=== PATIENT | female | born 1950 | race African-American/Black ===

== ENCOUNTER 2018-01-01 22:22 | Inpatient (IN) | payer MEDICARE, OTHER ==
[~2018-01-01] VITALS: Ht 172.7 cm; Wt 196.0 kg
[2018-01-01 22:55] LABS: BASO # 0.1 x10^3/uL (0.0-0.2); BASO % 1 % (0-3); EOS # 0.3 x10^3/uL (0.0-0.7); EOS % 2 % (0-3); HEMATOCRIT 38.7 % (36.0-47.0); HEMOGLOBIN 12.3 g/dL (12.0-15.5); LYMPH # 3.8 x10^3/uL (1.0-4.8); LYMPH % 26 % (24-48); MEAN CORPUSCULAR HEMOGLOBIN 29 pg (25-35); MEAN CORPUSCULAR HGB CONC 32 g/dL (31-37); MEAN CORPUSCULAR VOLUME 91 fL (79-100); MONO # 1.2 x10^3/uL (0.0-1.1); MONO % 8 % (0-9); NEUT # 9.5 x10^3uL (1.8-7.7); NEUT % 64 % (31-73); PLATELET COUNT 297 x10^3/uL (140-400); RED BLOOD COUNT 4.26 x10^6/uL (3.50-5.40); RED CELL DISTRIBUTION WIDTH 17.3 % (11.5-14.5); WHITE BLOOD COUNT 14.9 x10^3/uL (4.0-11.0)
[2018-01-01] MEDS ORDERED: fentaNYL PF VIAL 100 MCG/2 ML VIAL IV PRN ×2 (23:00)
[2018-01-01 23:03] LABS: PROTHROMBIN TIME PATIENT 13.3 SEC (11.7-14.0)
[2018-01-01 23:07] LABS: CALCIUM 8.7 mg/dL (8.5-10.1); CREATININE 1.7 mg/dL (0.6-1.0); GFR 36.4; POTASSIUM 3.7 mmol/L (3.5-5.1)
[2018-01-01] MEDS ORDERED: PROPOFOL 50 ML IV ONE ×2 (23:16→23:50)
[2018-01-01 23:20] LABS: ALBUMIN 2.7 g/dL (3.4-5.0); ALBUMIN/GLOBULIN RATIO 0.5 (1.0-1.7); MAGNESIUM 1.9 mg/dL (1.8-2.4); TOTAL BILIRUBIN 0.4 mg/dL (0.2-1.0); TOTAL PROTEIN 8.2 g/dL (6.4-8.2)
[2018-01-01] MEDS: PROPOFOL 100 ML IV PRN (23:20)
[2018-01-01] MEDS ORDERED: AZTREONAM 2 GM in IV DEXTROSE 5% 100ML 100 ML IV ONE (23:30)
[2018-01-01] MEDS ORDERED: LIDOCAINE 1%/EPI 1:100,000 20 ML VIAL. ONE (23:40)
[2018-01-01 23:43] LABS: BILIRUBIN,URINE NEGATIVE (NEG); CLARITY,URINE CLEAR; COLOR,URINE YELLOW; NITRITE,URINE NEGATIVE (NEG); PH,URINE 6.5; PROTEIN,URINE >=300 mg/dL (NEG-TRACE)
[2018-01-01 23:48] LABS: BACTERIA,URINE MANY /HPF (0-FEW); SQUAMOUS EPITHELIAL CELL,UR FEW /LPF
[2018-01-02] VITALS (26 sets, daily range): BP systolic 126–176; BP diastolic 63–106
[2018-01-02 00:17] LABS: BASE EXCESS COOX -1 mmol/L (-3-3); HCO3 COOX 27 mmol/L (21-28); METHEMOGLOBIN 0.3 % (0.0-1.9); OXYHEMOGLOBIN 84.9 %; PCO2 COOX 57 mmHg (35-46); PO2 COOX 57 mmHg (65-108); SAT O2 COOX 86 % (92-99)
[2018-01-02] MEDS ORDERED: IV NORMAL SALINE 1000ML BAG 1,000 ML IV ONE ×2 (01:00)
--- NOTE | 2018-01-02 01:16 | EKG ---
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
--- NOTE | 2018-01-02 01:17 | PHYS DOC ---
Past Medical History Past Medical History: CHF, COPD, Diabetes-Type II, Hypertension Past Medical History Unable to obtain due to patient's medical condition Past Surgical History: Other Additional Past Surgical Histo: UNKNOWN Past Surgical History Unable to obtain due to patient's medical condition Social History Unable to obtain due to patient's medical condition Adult General Chief Complaint Chief Complaint: DYSPNEA/RESPIRATOY DISTRESS HPI HPI 67-year-old female presents via EMS in respiratory distress. Family reports patient has had increased respiratory difficulties over the last couple days and now was with decreased mentation. Patient apparently decided to stop taking her medication. Patient noted by EMS to have pulse oximetry down to the "60's" on room air. Patient does use CPAP at night but does not require supplemental O2 at baseline. Patient does have past medical history of both COPD and congestive heart failure. History of present illness limited due to patient's respiratory compromise. Review of Systems Review of Systems Respiratory: Reports shortness of breath [] GI: Denies vomiting Neurology: Reports decreased responsiveness Unable to obtain due to patient's medical condition Current Medications Current Medications Current Medications Medications (Trade) Dose Ordered Sig/Lulú Start Time Stop Time Status Last Admin Dose Admin Aztreonam 2 gm/ Dextrose 100 ml @ 200 mls/hr 1X ONCE 01/01/18 23:30 01/01/18 23:59 DC 01/02/18 00:23 200 MLS/HR Fentanyl Citrate (Fentanyl 2ml Vial) 50 mcg PRN Q1HR PRN 01/01/18 23:00 01/01/18 23:57 50 MCG Levofloxacin/ Dextrose 100 ml @ 100 mls/hr 1X ONCE 01/01/18 23:30 01/02/18 00:29 DC 01/01/18 23:56 100 MLS/HR Lidocaine/ Epinephrine (LIDOCAINE 1%-EPI 1:100,000 Multi-Dose) 20 ml STK-MED ONCE 01/01/18 23:40 01/01/18 23:41 DC Propofol 50 ml @ As Directed STK-MED ONCE 01/01/18 23:50 01/01/18 23:51 DC Sodium Chloride 1,000 ml @ 1,000 mls/hr 1X ONCE 01/02/18 01:00 01/02/18 01:59 DC 01/02/18 01:12 1,000 MLS/HR Allergies Allergies Allergies Coded Allergies Type Severity Reaction Last Updated Verified Penicillins Allergy Intermediate 01/01/18 Yes Physical Exam Physical Exam Constitutional: Morbidly obese -[place] women in severe respiratory distress HENT: Normocephalic, atraumatic, oropharynx moist Eyes: PERRL, EOMI, conjunctiva normal, no discharge. [] Neck: Normal range of motion, supple] Cardiovascular: Tachycardic heart rate, Lungs & Thorax: Diminished breath sound bilaterally due to patient's body habitus, Increased work of breathing Abdomen: Obese pannus, soft, no tenderness, no masses, no pulsatile masses. [] Skin: Warm, dry, no erythema, no rash. [] Extremities: Trace BLE edema, CR < 2 sec Neurologic: Awake and able to answer "yes/no" to questioning Current Patient Data Vital Signs Vital Signs Date Time Temp Pulse Resp B/P (MAP) Pulse Ox O2 Delivery O2 Flow Rate FiO2 01/02/18 01:09 66 26 122/80 (94) 97 Ventilator 01/01/18 22:25 97.9 4.0 97.9 Lab Values Laboratory Tests Test 01/01/18 22:25 01/01/18 22:40 01/01/18 23:00 White Blood Count 14.9 x10^3/uL (4.0-11.0) H Red Blood Count 4.26 x10^6/uL (3.50-5.40) Hemoglobin 12.3 g/dL (12.0-15.5) Hematocrit 38.7 % (36.0-47.0) Mean Corpuscular Volume 91 fL (79-100) Mean Corpuscular Hemoglobin 29 pg (25-35) Mean Corpuscular Hemoglobin Concent 32 g/dL (31-37) Red Cell Distribution Width 17.3 % (11.5-14.5) H Platelet Count 297 x10^3/uL (140-400) Neutrophils (%) (Auto) 64 % (31-73) Lymphocytes (%) (Auto) 26 % (24-48) Monocytes (%) (Auto) 8 % (0-9) Eosinophils (%) (Auto) 2 % (0-3) Basophils (%) (Auto) 1 % (0-3) Neutrophils # (Auto) 9.5 x10^3uL (1.8-7.7) H Lymphocytes # (Auto) 3.8 x10^3/uL (1.0-4.8) Monocytes # (Auto) 1.2 x10^3/uL (0.0-1.1) H Eosinophils # (Auto) 0.3 x10^3/uL (0.0-0.7) Basophils # (Auto) 0.1 x10^3/uL (0.0-0.2) Prothrombin Time 13.3 SEC (11.7-14.0) Prothrombin Time INR 1.1 (0.8-1.1) PTT 31 SEC (24-38) Sodium Level 139 mmol/L (136-145) Potassium Level 3.7 mmol/L (3.5-5.1) Chloride Level 101 mmol/L (98-107) Carbon Dioxide Level 28 mmol/L (21-32) Anion Gap 10 (6-14) Blood Urea Nitrogen 13 mg/dL (7-20) Creatinine 1.7 mg/dL (0.6-1.0) H Estimated GFR (Cockcroft-Gault) 36.4 BUN/Creatinine Ratio 8 (6-20) Glucose Level 331 mg/dL (70-99) H Lactic Acid Level 3.5 mmol/L (0.4-2.0) H Calcium Level 8.7 mg/dL (8.5-10.1) Magnesium Level 1.9 mg/dL (1.8-2.4) Total Bilirubin 0.4 mg/dL (0.2-1.0) Aspartate Amino Transferase (AST) 18 U/L (15-37) Alanine Aminotransferase (ALT) 22 U/L (14-59) Alkaline Phosphatase 137 U/L (46-116) H Creatine Kinase 183 U/L (26-192) Troponin I Quantitative < 0.017 ng/mL (0.000-0.055) NP-Smh-M-Type Natriuretic Peptide 1542 pg/mL (0-124) H Total Protein 8.2 g/dL (6.4-8.2) Albumin 2.7 g/dL (3.4-5.0) L Albumin/Globulin Ratio 0.5 (1.0-1.7) L Lipase 87 U/L (73-393) O2 Saturation 86 % (92-99) L Arterial Blood pH 7.29 (7.35-7.45) L Arterial Blood pCO2 at Patient Temp 57 mmHg (35-46) H Arterial Blood pO2 at Patient Temp 57 mmHg (65-108) L Arterial Blood HCO3 27 mmol/L (21-28) Arterial Blood Base Excess -1 mmol/L (-3-3) Oxyhemoglobin 84.9 % Methemoglobin 0.3 % (0.0-1.9) Carbon Monoxide, Quantitative 0.6 % (0.0-1.9) FiO2 100 Urine Collection Type Unknown Urine Color Yellow Urine Clarity Clear Urine pH 6.5 Urine Specific [place] 1.020 Urine Protein >=300 mg/dL (NEG-TRACE) Urine Glucose (UA) 500 mg/dL (NEG) Urine Ketones (Stick) Negative mg/dL (NEG) Urine Blood Small (NEG) Urine Nitrite Negative (NEG) Urine Bilirubin Negative (NEG) Urine Urobilinogen Dipstick 1.0 mg/dL (0.2 mg/dL) Urine Leukocyte Esterase Negative (NEG) Urine RBC 1-2 /HPF (0-2) Urine WBC 11-20 /HPF (0-4) Urine Squamous Epithelial Cells Few /LPF Urine Bacteria Many /HPF (0-FEW) Urine Mucus Slight /LPF Laboratory Tests 01/01/18 22:25 Laboratory Tests 01/01/18 22:25 EKG EKG @2301 NSR at 82bpm, No ST elevation, nonspecific t wave inversion I and avL Radiology/Procedures Radiology/Procedures AP CXR: (Preliminary interpretation by ED physician): Status post intubation. ET tube in mid trachea in good position. Near complete opacification of right lung concerning for infectious etiology. AP CXR: (Preliminary interpretation by ED physician): Status post central line placement. In good position. NO pneumothorax noted. Continued opacification of right lung Course & Med Decision Making Course & Med Decision Making Pertinent Labs and Imaging studies reviewed. (See chart for details) Patient presents in severe respiratory distress with report of sats down to the 60s. Patient noted to be in mid 70s on BiPAP via EMS. Patient with increased work of breathing although able to answer yes to questioning. Patient agreeable for emergent intubation. Etomidate and rocuronium provided and intubation achieved. Chest x-ray obtained with near opacification of right lung. Labs obtained and posted to chart. Initial troponin WNL. EKG stable. Patient noted to meet SIRS criteria based on elevated respiratory rate as well as elevated WBC. Lactic acid elevated. Patient also with respiratory failure. Patient mets criteria for septic shock. Empiric antibiotics given. IVF bolusing provided for ideal weight. UA without signs of infection. SCVO2 placed to RIJ without complication or difficulty. Repeat CXR confirmed good placement. Patient requiring admission for further evaluation and treatment. Discussed with Dr. Parmar (hospitalist) who is in agreement with ICU admission. Discussed findings and plan with family, who acknowledge understanding and agreement. Dragon Disclaimer Dragon Disclaimer This electronic medical record was generated, in whole or in part, using a voice recognition dictation system. Departure Departure Impression: Primary Impression: Septic shock Additional Impressions: Respiratory failure Hypoxia UTI (urinary tract infection) Hyperglycemia Renal insufficiency Disposition: ADMITTED INPATIENT Admitting Physician: Eli Parmar Condition: CRITICAL Referrals: ADRIAN SANDY DO (PCP) Central Line Central Line : Central Line Lumen: triple (SCVO2) Central Line Procedure: sterile drapes applied, sterile dressing applied Central Line Postion: internal jugular (R) Anesthesia: Lidocaine cc's of anesthesia: 3 Complications: none Central Line Post Position: sutured, good blood return, position confirmed w / CXR Progress Time out performed. Bedside ultrasound utilized. Chlorprep solution utilized. Written consent obtained from spouse. Intubation Intubation : Intubation Method: orotracheal Tube Size (cm): 8.0 (cuffed) Breath Sounds after Intubation: equal Intubation Complications: no complications Post Intubation Xray: Yes Progress/Xray Impression: ETT mid trachea in good position Progress RSI under 50mg of Rocuronium and 20mg of Etomidate. Utilized Harris blade to place 8.0 cuffed ETT under direct laryngoscopy under emergent consent Critical Care Time Critical care time was 30-74 minutes which includes time at bedside, spent in discussion of patient's care with specialists and/or family members, with interpretation of laboratory and/or radiological studies and is exclusive of procedures. Problem Qualifiers Additional Impressions: Respiratory failure Chronicity: acute Respiratory failure complication: hypoxia Qualified Codes : J96.01 - Acute respiratory failure with hypoxia UTI (urinary tract infection) Urinary tract infection type: acute cystitis Hematuria presence: without hematuria Qualified Codes: N30.00 - Acute cystitis without hematuria WESLY RIVAS DO Jan 02, 2018 01:17
[2018-01-02] MEDS ORDERED: ONDANSETRON PF 4 MG/2 ML VIAL. IV PRN (01:30)
[2018-01-02] MEDS ORDERED: DEXTROSE 50% 25 GM / 50ML DISP.SYRIN. IV PRN (01:30)
[2018-01-02] MEDS ORDERED: VANCOMYCIN 2 GM in IV NORMAL SALINE 500ML BAG 500 ML IV ONE (01:30)
[2018-01-02] MEDS: PROPOFOL 100 ML IV PRN ×12 (01:37→23:08)
[2018-01-02] MEDS ORDERED: FLUO40CA2 PO (03:08)
[2018-01-02] MEDS ORDERED: ISOS1TAB2 PO (03:08)
[2018-01-02] MEDS ORDERED: PANT40GR PO (03:08)
[2018-01-02] MEDS ORDERED: CARV25TA2 PO (03:08)
[2018-01-02] MEDS ORDERED: INSU100V8 SQ (03:08)
[2018-01-02] MEDS ORDERED: SACU1TAB7 PO (03:08)
[2018-01-02] MEDS ORDERED: FURO80TA3 PO (03:08)
[2018-01-02] MEDS ORDERED: POTA20TA82 PO (03:08)
[2018-01-02] MEDS ORDERED: AMLO5TAB7 PO (03:08)
[2018-01-02] MEDS ORDERED: INSU100I17 SQ (03:08)
[2018-01-02] MEDS ORDERED: ATOR40TA59 PO (03:08)
[2018-01-02] MEDS ORDERED: NITR0.4T22 SL (03:08)
[2018-01-02] MEDS ORDERED: CLOP75TA PO (03:08)
[2018-01-02] MEDS: ANTI-COAG MONITOR BY PHARMACY. MC PRN ×2 (05:45→16:31)
[2018-01-02] MEDS ORDERED: HEPARIN for IV BOLUS 10,000 UNIT/10 ML VIAL. IV PRN (05:45)
[2018-01-02] MEDS ORDERED: ROCURONIUM 50 MG/5 ML VIAL. IV ONE (06:00)
[2018-01-02] MEDS ORDERED: ETOMIDATE 20 MG/10 ML VIAL. IV ONE (06:00)
[2018-01-02] MEDS ORDERED: INSULIN LISPRO 300 UNITS/3 ML INSULN.PEN. SQ SCH (08:00)
--- NOTE | 2018-01-02 08:00 | RAD ---
PORTABLE CHEST 1V 1:17 AM Clinical indications: LINE PLACEMENT COMPARISON: January 01, 2018. Impression: Right IJ central line has been placed and the tip is seen within the upper superior vena cava. No pneumothorax is seen. ET tube and NG tube remain in place. Tip of the NG tube cannot be seen in this study. Again seen are bilateral lung infiltrates, stable on the right and worsening consolidation of the left lung base. Small bilateral pleural effusions are again evident and are stable. The heart size and mediastinum are stable.. Electronically signed by: Sergei Gómez MD (01/02/2018 7:57 AM) [facility]
--- NOTE | 2018-01-02 08:43 | RAD ---
EXAM: Chest, single view. HISTORY: Intubation. COMPARISON: None. FINDINGS: A frontal view of the chest is obtained. There is an endotracheal tube within the mid trachea with the tip approximately 5.6 cm proximal to the bret. There is a nasogastric tube within the stomach. There is diffuse mixed interstitial and alveolar infiltrate throughout the right lung. There is diffuse interstitial infiltrate throughout the left lung. There are suspected small pleural effusions. There is cardiomegaly. There is no pneumothorax. IMPRESSION: 1. Endotracheal tube and nasogastric tube in expected position. 2. Diffuse mixed interstitial and alveolar infiltrate throughout the right lung and interstitial infiltrate throughout the left lung. Follow-up to confirm resolution and exclude underlying neoplasm. 3. Small pleural effusions and cardiomegaly. Electronically signed by: Kaylie Gonzalez MD (01/02/2018 8:39 AM) [facility]
[2018-01-02] MEDS: ENALAPRILAT 2.5 MG/2 ML VIAL. IVP PRN ×2 (08:58→18:10)
[2018-01-02] MEDS: CHLORHEXIDINE 0.12% 15 ML MOUTHWASH. MM SCH ×2 (09:03→21:12)
[2018-01-02 09:32] LABS: BASE EXCESS ABG 1 mmol/L (-3-3); HCO3 ABG 23 mmol/L (21-28); PCO2 ABG 30 mmHg (35-46); PO2 ABG 163 mmHg (65-108); SAT O2 ABG 99 % (92-99)
[2018-01-02 10:00] LABS: FIO2 ABG 100
--- NOTE | 2018-01-02 10:16 | PDOC2 ---
JOSE RAMON JACKSON [employer] 01/02/18 1016: CARDIAC CONSULT DATE OF CONSULT Date of Consult DATE: 01/02/18 TIME: 10:15 REASON FOR CONSULT Reason for Consult: elevated troponin REFERRING PHYSICIAN Referring Physician: Ghulam SOURCE Source: Chart review HISTORY OF PRESENT ILLNESS HISTORY OF PRESENT ILLNESS 67 year old female admitted through ER with acute respiratory failure and intubated. EMS reported O2 sats in the 60s. Patient reportedly stopped taking medications. Hypertensive POA with CR of 1.7; NT-proBNP of 1542; lactate level of 3.5 and now decreased. Initial troponin level was 0.017 then increase to 4.9 and then 7.9. EKG without acute changes. Patient sedated and no family present. Reason for Visit: NSTEMI PAST MEDICAL HISTORY Cardiovascular: CHF, HTN Pulmonary: COPD Endocrine: Diabetes PAST SURGICAL HISTORY Past Surgical History: Other (unknown) FAMILY HISTORY Family History: Family History Unknown SOCIAL HISTORY Social History unknown CURRENT MEDICATIONS CURRENT MEDICATIONS Current Medications Medications (Trade) Dose Ordered Sig/Lulú Route PRN Reason Start Time Stop Time Status Last Admin Dose Admin Propofol 100 ml @ 0 mls/hr CONT PRN IV PER PROTOCOL 01/01/18 23:00 01/02/18 08:59 Fentanyl Citrate (Fentanyl 2ml Vial) 50 mcg PRN Q1HR PRN IV MOD TO SEVERE PAIN 01/01/18 23:00 01/01/18 23:57 Chlorhexidine Gluconate (Peridex) 15 ml BID MM 01/02/18 09:00 01/02/18 09:03 Aztreonam 2 gm/ Dextrose 100 ml @ 200 mls/hr 1X ONCE IV 01/01/18 23:30 01/01/18 23:59 DC 01/02/18 00:23 Vancomycin HCl 2 gm/Sodium Chloride 500 ml @ 250 mls/hr 1X ONCE IV 01/02/18 01:30 01/02/18 03:29 DC 01/02/18 01:13 Levofloxacin/ Dextrose 100 ml @ 100 mls/hr 1X ONCE IV 01/01/18 23:30 01/02/18 00:29 DC 01/01/18 23:56 Sodium Chloride 1,000 ml @ 1,000 mls/hr 1X ONCE IV 01/02/18 01:00 01/02/18 01:59 DC 01/02/18 00:00 Sodium Chloride 1,000 ml @ 1,000 mls/hr 1X ONCE IV 01/02/18 01:00 01/02/18 01:59 DC 01/02/18 01:12 Info (Anti-Coagulation Monitoring By Pharmacy) 1 each PRN DAILY PRN MC SEE COMMENTS 01/02/18 05:45 01/02/18 05:45 Etomidate (Amidate) 20 mg 1X ONCE IV 01/02/18 06:00 01/02/18 06:01 DC 01/01/18 22:31 Rocuronium Garretson (Zemuron) 50 mg 1X ONCE IV 01/02/18 06:00 01/02/18 06:01 DC 01/01/18 22:31 Enalaprilat (Vasotec Inj) 2.5 mg PRN Q6HRS PRN IVP HYPERTENSION, SEE COMMENTS 01/02/18 09:00 01/02/18 08:58 ALLERGIES ALLERGIES: Coded Allergies: Penicillins (Verified Allergy, Intermediate, 01/01/18) ROS Review of System unable to obtain as intubated and sedated PHYSICAL EXAM General: Other (sedated) HEENT: Atraumatic Lungs: Other (coarse) Heart: Other (heart tones distant and difficult to auscultate) Abdomen: Other (obese abdomen) Extremities: No edema Skin: No rashes Neuro: Other (sedated) Psych/Mental Status: Other (sedated) MUSCULOSKELETAL: No deformity VITALS VITALS Vital Signs Date Time Temp Pulse Resp B/P (MAP) Pulse Ox O2 Delivery O2 Flow Rate FiO2 01/02/18 10:00 68 26 153/84 (107) 100 Ventilator 01/02/18 08:00 98.0 98.0 01/01/18 22:25 4.0 LABS Lab: Laboratory Tests Test 01/01/18 22:25 01/01/18 22:40 01/01/18 23:00 01/02/18 03:15 White Blood Count 14.9 x10^3/uL (4.0-11.0) Red Blood Count 4.26 x10^6/uL (3.50-5.40) Hemoglobin 12.3 g/dL (12.0-15.5) Hematocrit 38.7 % (36.0-47.0) Mean Corpuscular Volume 91 fL (79-100) Mean Corpuscular Hemoglobin 29 pg (25-35) Mean Corpuscular Hemoglobin Concent 32 g/dL (31-37) Red Cell Distribution Width 17.3 % (11.5-14.5) Platelet Count 297 x10^3/uL (140-400) Neutrophils (%) (Auto) 64 % (31-73) Lymphocytes (%) (Auto) 26 % (24-48) Monocytes (%) (Auto) 8 % (0-9) Eosinophils (%) (Auto) 2 % (0-3) Basophils (%) (Auto) 1 % (0-3) Neutrophils # (Auto) 9.5 x10^3uL (1.8-7.7) Lymphocytes # (Auto) 3.8 x10^3/uL (1.0-4.8) Monocytes # (Auto) 1.2 x10^3/uL (0.0-1.1) Eosinophils # (Auto) 0.3 x10^3/uL (0.0-0.7) Basophils # (Auto) 0.1 x10^3/uL (0.0-0.2) Prothrombin Time 13.3 SEC (11.7-14.0) Prothromb Time International Ratio 1.1 (0.8-1.1) Activated Partial Thromboplast Time 31 SEC (24-38) Sodium Level 139 mmol/L (136-145) Potassium Level 3.7 mmol/L (3.5-5.1) Chloride Level 101 mmol/L (98-107) Carbon Dioxide Level 28 mmol/L (21-32) Anion Gap 10 (6-14) Blood Urea Nitrogen 13 mg/dL (7-20) Creatinine 1.7 mg/dL (0.6-1.0) Estimated GFR (Cockcroft-Gault) 36.4 BUN/Creatinine Ratio 8 (6-20) Glucose Level 331 mg/dL (70-99) Lactic Acid Level 3.5 mmol/L (0.4-2.0) 1.9 mmol/L (0.4-2.0) Calcium Level 8.7 mg/dL (8.5-10.1) Magnesium Level 1.9 mg/dL (1.8-2.4) Total Bilirubin 0.4 mg/dL (0.2-1.0) Aspartate Amino Transf (AST/SGOT) 18 U/L (15-37) Alanine Aminotransferase (ALT/SGPT) 22 U/L (14-59) Alkaline Phosphatase 137 U/L (46-116) Creatine Kinase 183 U/L (26-192) Troponin I Quantitative < 0.017 ng/mL (0.000-0.055) DX-Luy-C-Type Natriuretic Peptide 1542 pg/mL (0-124) Total Protein 8.2 g/dL (6.4-8.2) Albumin 2.7 g/dL (3.4-5.0) Albumin/Globulin Ratio 0.5 (1.0-1.7) Lipase 87 U/L (73-393) O2 Saturation 86 % (92-99) Arterial Blood pH 7.29 (7.35-7.45) Arterial Blood pCO2 at Patient Temp 57 mmHg (35-46) Arterial Blood pO2 at Patient Temp 57 mmHg (65-108) Arterial Blood HCO3 27 mmol/L (21-28) Arterial Blood Base Excess -1 mmol/L (-3-3) Oxyhemoglobin 84.9 % Methemoglobin 0.3 % (0.0-1.9) Carbon Monoxide, Quantitative 0.6 % (0.0-1.9) FiO2 100 Urine Collection Type Unknown Urine Color Yellow Urine Clarity Clear Urine pH 6.5 Urine Specific [place] 1.020 Urine Protein >=300 mg/dL (NEG-TRACE) Urine Glucose (UA) 500 mg/dL (NEG) Urine Ketones (Stick) Negative mg/dL (NEG) Urine Blood Small (NEG) Urine Nitrite Negative (NEG) Urine Bilirubin Negative (NEG) Urine Urobilinogen Dipstick 1.0 mg/dL (0.2 mg/dL) Urine Leukocyte Esterase Negative (NEG) Urine RBC 1-2 /HPF (0-2) Urine WBC 11-20 /HPF (0-4) Urine Squamous Epithelial Cells Few /LPF Urine Bacteria Many /HPF (0-FEW) Urine Mucus Slight /LPF Test 01/02/18 03:38 01/02/18 04:40 01/02/18 07:35 01/02/18 08:03 Glucose (Fingerstick) 191 mg/dL (70-99) 165 mg/dL (70-99) Troponin I Quantitative 4.975 ng/mL (0.000-0.055) 7.937 ng/mL (0.000-0.055) Test 01/02/18 09:25 O2 Saturation 99 % (92-99) Arterial Blood pH 7.50 (7.35-7.45) Arterial Blood pCO2 at Patient Temp 30 mmHg (35-46) Arterial Blood pO2 at Patient Temp 163 mmHg (65-108) Arterial Blood HCO3 23 mmol/L (21-28) Arterial Blood Base Excess 1 mmol/L (-3-3) FiO2 100 IMAGES IMAGES CXR: Impression: Right IJ central line has been placed and the tip is seen within the upper superior vena cava. No pneumothorax is seen. ET tube and NG tube remain in place. Tip of the NG tube cannot be seen in this study. Again seen are bilateral lung infiltrates, stable on the right and worsening consolidation of the left lung base. Small bilateral pleural effusions are again evident and are stable. The heart size and mediastinum are stable.. EKG EKG no acute changes ECHOCARDIOGRAM ECHOCARDIOGRAM pending ASSESSMENT/PLAN ASSESSMENT/PLAN 1. ? sepsis --defer to primary service 2. NSTEMI --? demand mediated in setting of acute resp failure --continue heparin gtt; continue IV BB and ACEI --echo to evaluate LVEF --consider further ischemic evaluation when stabilizes 3. acute CHF --concur with diuretics --control BP --obtain records from primary cardiology if can be determined 4. DM, II --per primary service 5. morbid obesity, BMI > 68 JIMY PARKER MD 01/02/18 1555: CARDIAC CONSULT ASSESSMENT/PLAN ASSESSMENT/PLAN Patient seen and examined. Agree with SKIVER BOX TOE's assessment and plan. 2-D echo showed LVEF 30%. Plan further ischemic evaluation for non-STEMI and cardiomyopathy once respiratory status improves Continue vent management per pulmonary team Continue heparin infusion per protocol Continue current workup and treatment for sepsis Thank you for your consultation JOSE RAMON JACKSON APRN Jan 02, 2018 10:16 JIMY PARKER MD Jan 02, 2018 15:55
[2018-01-02] MEDS ORDERED: METOPROLOL TARTRATE 5 MG/5 ML VIAL. IVP PRN (10:30)
[2018-01-02] MEDS: METOPROLOL TARTRATE 5 MG/5 ML VIAL. IVP SCH ×2 (11:19→17:05)
[2018-01-02] MEDS: INSULIN LISPRO 300 UNITS/3 ML INSULN.PEN. SQ SCH ×3 (11:20→20:36)
[2018-01-02] MEDS ORDERED: FUROSEMIDE 100 MG/10 ML VIAL. IVP ONE (11:30)
--- NOTE | 2018-01-02 11:38 | CONS ---
DATE OF CONSULTATION: 01/02/2018 PULMONARY CONSULTATION ATTENDING PHYSICIAN: Dr. Parmar. REASON FOR CONSULTATION: Respiratory failure. HISTORY OF PRESENT ILLNESS: The patient is a 67-year-old morbidly obese patient with a BMI of 68.6. She has also chewed tobacco most of her life. She presented to the hospital, brought in by EMS, in respiratory distress. This was started last couple of days and progressed. The patient had a mild cough. Family does not think there was any colored sputum production. She requested a family member for aspirin and it is possible she may be having some chest pain. The patient uses CPAP at night time and does use oxygen 4 liters on a 24-hour basis. In the ER, she was in respiratory distress. As a result, she was intubated by the ER staff. Post-intubation, immediate blood gases revealed a pH of 7.29, pCO2 of 57 and pO2 of 57 on 100% FiO2. The patient's chest x-ray was reviewed and it shows diffuse lung infiltrates, more on the right than on the left, suggesting pulmonary edema. There was marked cardiomegaly. Subsequently, the chest x-ray today shows mild improvement in the right-sided infiltrates. The patient's arterial blood gases have shown improvement as well and the pO2 is now in the 160s. Talking to the family, they said she had no nausea, vomiting or no diarrhea before hospitalization. She has been ambulatory. She uses CPAP, with good compliance. PAST MEDICAL HISTORY: Significant for congestive heart failure, history of COPD, unknown FEV1; history of morbid obesity, type 2 diabetes and hypertension. PAST SURGICAL HISTORY: No recent surgeries. ALLERGIES: PENICILLIN. MEDICATIONS: Reviewed as listed in the MRAD. REVIEW OF SYSTEMS: System review unable to be obtained from the patient. SOCIAL HISTORY: Chewed tobacco most of her life. PHYSICAL EXAMINATION: GENERAL: She is intubated and sedated. VITAL SIGNS: Blood pressure 153/84, pulse is in the 60s. Afebrile, pulse ox is 100%. HEENT: Sclerae nonicteric. NECK: Supple. LUNGS: Diminished breath sounds, with a few rhonchi. CARDIOVASCULAR EXAMINATION: Regular rate and rhythm. ABDOMEN: Markedly obese. EXTREMITIES: With trace pitting edema. LABORATORY DATA: Labs were reviewed. ABGs are discussed in my history of present illness. BUN 13, creatinine 1.7. Her troponin level has increased to 7.93. White cell count 14.9, hemoglobin 12.3 and platelets are 297,000. IMPRESSION: 1. Gelxe-fy-xisksti hypoxic and hypercapnic respiratory failure secondary to non-ST segment myocardial infarction and acute congestive heart failure. Underlying chronic obstructive pulmonary disease may have contributed to the symptoms. 2. Clinically less likely pneumonia, but cannot be completely ruled out due to asymmetric infiltrates. 3. Abnormal chest x-ray with bilateral infiltrates, more on the right than on the left, likely related to pulmonary edema. She has a large cardiac silhouette as well. Cannot exclue underlying Pneumonia. 4. Suspected underlying chronic obstructive pulmonary disease. 5. Underlying obstructive sleep apnea with suspected obesity hypoventilation syndrome. 6. Acute kidney injury. 7. Moderate protein-calorie malnutrition, with an albumin level of 2.7. 8. Increasing troponin/ NSTMI RECOMMENDATIONS: 1. Continue with present vent support and make necessary adjustments based on ABGs. 2. Diuresis. 3. Add empiric antibiotic. 4. Follow Cardiology recommendation regarding the need for cardiac catheterization. 5. Obtain echocardiogram. 6. Follow chest x-rays. 7. Continue heparin per Cardiology recommendation. 8. PPI for stress ulcer prophylaxis. 9. Discussed with the patient's family, RN and RT. Critical care time 39 minutes. MARY MATSON MD DR: THELMA/tanya JOB#: [id number] / [id number] OLLIE
--- NOTE | 2018-01-02 15:23 | CARD ---
MR#: [id number] Date of Study: 01/02/2018 Ordering Physician: JOSE RAMON JACKSON, Referring Physician: SEUN HELM Tech: Kalpana Jara [facility] APPROVED REPORT EXAM: Two-dimensional and M-mode echocardiogram with Doppler and color Doppler. Other Information Quality : Good INDICATION Elevated Troponin RISK FACTORS Obesity 2D DIMENSIONS RVDd2.5 (2.9-3.5cm)Left Atrium(2D)4.0 (1.6-4.0cm) IVSd1.3 (0.7-1.1cm)Aortic Root(2D)3.3 (2.0-3.7cm) LVDd6.4 (3.9-5.9cm)LVOT Diameter3.0 (1.8-2.4cm) PWd1.8 (0.7-1.1cm)LVDs5.2 (2.5-4.0cm) FS (%) 18.4 %SV78.4 ml LVEF(%)35.0 (>50%) Aortic Valve AoV Peak Tree.124.4cm/sAoV VTI24.4cm AO Peak GR.6.2mmHgLVOT VTI 13.21cm AO Mean GR.4mmHgAVA (VTI)3.80cm2 TDI Lateral E' P. V4.51cm/sMedial E' P. V4.44cm/s Tricuspid Valve TR P. Kztubmpy207mi/sRAP EDTSGQAS1yzIm TR Peak Gr.49kuGyVQEM89mvGk Pulmonary Vein S1 Angezyss67.4cm/sS2 Vigjycrp45.83cm/s D2 Jtoyxrsc04.8cm/s LEFT VENTRICLE The left ventricle is normal size. There is mild to moderate concentric left ventricular hypertrophy. Moderate to severe left ventricular systolic dysfunction. The Ejection Fraction is 30%. There is amol bal hypokinesis of the left ventricle. Transmitral Doppler flow pattern is Grade II-pseudonormal fill ing dynamics. RIGHT VENTRICLE The right ventricle is normal size. The right ventricular systolic function is normal. ATRIA The left atrium is mildly dilated. The right atrium size is normal. The interatrial septum is intact with no evidence for an atrial septal defect or patent foramen ovale as noted on 2-D or Doppler imagi ng. AORTIC VALVE The aortic valve is calcified but opens well. Doppler and Color Flow revealed no significant aortic r egurgitation. There is no significant aortic valvular stenosis. MITRAL VALVE The mitral valve is calcified but opens well. There is no evidence of mitral valve prolapse. There is no mitral valve stenosis. Doppler and Color-flow revealed mild mitral regurgitation. TRICUSPID VALVE The tricuspid valve is normal in structure and function. Doppler and Color Flow revealed trace tricus pid regurgitation. There is moderate pulmonary hypertension. The PA pressure was estimated at 41 mmHg . There is no tricuspid valve stenosis. PULMONIC VALVE The pulmonic valve is not well visualized. Doppler and Color Flow revealed trace pulmonic valvular re gurgitation. There is no pulmonic valvular stenosis. GREAT VESSELS The aortic root is normal in size. The ascending aorta is mildly dilated at 3.6 cm. The IVC was not v isualized. PERICARDIAL EFFUSION There is no evidence of significant pericardial effusion. Critical Notification Critical Value: No <Conclusion> Moderate to severe left ventricular systolic dysfunction. The Ejection Fraction is 30%. Mild mitral regurgitation. Trace tricuspid regurgitation. The PA pressure was estimated at 41 mmHg. There is no evidence of significant pericardial effusion. Signed by : Skyler Burleson, Electronically Approved : 01/02/2018 15:22:14
--- NOTE | 2018-01-02 15:48 | HP ---
ADMIT DATE: 01/02/2018 CHIEF COMPLAINT: Respiratory failure, shortness of breath. HISTORY OF PRESENT ILLNESS: The patient is a pleasant 67-year-old morbidly obese female who has a BMI of 69. She presented with respiratory failure. She is short of breath. She is swollen. She has got pneumonia and CHF and multiple medical issues. I discussed the case with ER physician. We are going to admit the patient to the ICU with consultation to Dr. Mendoza. It should be noted that she is intubated in the ICU. PAST MEDICAL HISTORY: Severe morbid obesity, CHF, COPD, diabetes, hypertension. ALLERGIES: PENICILLIN. FAMILY HISTORY: Hypertension. SOCIAL HISTORY: She quit smoking, no drinking or drugs. MEDICATIONS: Reviewed, please refer to the MRAD. REVIEW OF SYSTEMS: Unable to obtain, the patient is intubated. PHYSICAL EXAMINATION: VITAL SIGNS: Temperature afebrile, pulse 98, respirations 18, blood pressure 131/70. GENERAL: She is sedated on the vent. Her family is present. They are good support for her. HEART: Normal S1, S2 with a soft S3. LUNGS: Bibasilar crackles. ABDOMEN: Soft, morbidly obese. EXTREMITIES: 2+ edema. SKIN: No rashes. ENDOCRINE: No thyromegaly. LYMPHATICS: No cervical nodes. HEMATOPOIETIC: No bruising. LABORATORY DATA: White count 15. Electrolytes are pending. Troponin is high at 4.9 and her creatinine is 1.7. ASSESSMENT AND PLAN: Multifactorial respiratory failure including chronic obstructive pulmonary disease, congestive heart failure, pneumonia and probable acute myocardial infarction. The patient has been admitted. We are consulting Pulmonary and Cardiology, ICU monitoring, vent weaning. Suspect she might need to eventually go to the research laboratory specialist. Await Dr. Carpenter's input, home meds. PROGNOSIS: Guarded. MITALI PHILLIP DO DR: MARIO/tanya JOB#: [id number] / [id number]
[2018-01-02] MEDS: HEPARIN 25,000UTS/500ML PREMIX 500 ML IV PRN (16:25)
[2018-01-02] MEDS: FAMOTIDINE 20 MG/2 ML VIAL IVP SCH (21:12)
[2018-01-03] VITALS (24 sets, daily range): BP systolic 110–176; BP diastolic 59–100
[2018-01-03] MEDS: METOPROLOL TARTRATE 5 MG/5 ML VIAL. IVP SCH ×4 (00:34→18:00)
[2018-01-03] MEDS: INSULIN LISPRO 300 UNITS/3 ML INSULN.PEN. SQ SCH ×6 (00:54→20:00)
[2018-01-03] MEDS: PROPOFOL 100 ML IV PRN ×4 (01:39→12:14)
[2018-01-03 06:57] LABS: CHOLESTEROL/HDL RATIO 4.4
[2018-01-03 07:33] LABS: BASE EXCESS ABG 1 mmol/L (-3-3); HCO3 ABG 25 mmol/L (21-28); PCO2 ABG 36 mmHg (35-46); PO2 ABG 118 mmHg (65-108); SAT O2 ABG 98 % (92-99)
[2018-01-03 07:55] LABS: BASO % 0 % (0-3); EOS # 0.1 x10^3/uL (0.0-0.7); EOS % 1 % (0-3); HEMATOCRIT 31.5 % (36.0-47.0); HEMOGLOBIN 10.2 g/dL (12.0-15.5); LYMPH # 1.5 x10^3/uL (1.0-4.8); LYMPH % 15 % (24-48); MEAN CORPUSCULAR HEMOGLOBIN 29 pg (25-35); MEAN CORPUSCULAR HGB CONC 33 g/dL (31-37); MEAN CORPUSCULAR VOLUME 90 fL (79-100); MONO # 1.5 x10^3/uL (0.0-1.1); MONO % 14 % (0-9); NEUT # 7.5 x10^3uL (1.8-7.7); NEUT % 71 % (31-73); PLATELET COUNT 218 x10^3/uL (140-400); RED CELL DISTRIBUTION WIDTH 17.1 % (11.5-14.5); WHITE BLOOD COUNT 10.6 x10^3/uL (4.0-11.0)
--- NOTE | 2018-01-03 08:21 | RAD ---
EXAM: PORTABLE CHEST 1V AP view chest DATE: 01/03/2018 6:30 AM INDICATION: respiratory failure, congestive heart failure COMPARISON: 01/02/2018 FINDINGS: Right IJ vascular catheter is in stable position. ET tube tip terminates approximately 5 cm above the bret. Enteric tube is seen to the level of the diaphragm, given suboptimal radiographic penetration distal tip is not visualized.. Cardiomediastinal silhouette is grossly stable accounting for differences in positioning and technique. Bilateral parenchymal opacities are grossly stable accounting for differences in projection and technique Small bilateral pleural effusions. No pneumothorax. IMPRESSION: Cardiomegaly with bilateral parenchymal opacities and pleural effusions-pulmonary edema, stable. Multifocal pneumonia may also have similar appearance. Electronically signed by: Bismark Chappell MD (01/03/2018 8:18 AM) [id number]
[2018-01-03] MEDS: CHLORHEXIDINE 0.12% 15 ML MOUTHWASH. MM SCH (08:57)
[2018-01-03] MEDS ORDERED: FUROSEMIDE 100 MG/10 ML VIAL. IVP ONE (09:00)
--- NOTE | 2018-01-03 09:02 | PDOC ---
MANUELJOSE RAMON Karen GLUELINE WORKER 01/03/18 0902: CARDIO Progress Notes Date and Time Date of Service 01/03/2018 Time of Evaluation 0858 Subjective Subjective: Other (intubated/sedated) Vitals Vitals Vital Signs Date Time Temp Pulse Resp B/P (MAP) Pulse Ox O2 Delivery O2 Flow Rate FiO2 01/03/18 07:38 100 Ventilator 01/03/18 07:00 99.2 77 20 138/74 (95) 99.2 Weight Weight [ ] Input and Output Intake and Output Intake and Output 01/03/18 07:00 Intake Total 3771.42 ml Output Total 4055 ml Balance -283.58 ml Intake Oral 0 ml IV Total 2131.42 ml Tube Feeding 1340 ml Other 300 ml Output Urine Total 4055 ml Gastric Drainage Total 0 ml Laboratory Labs Laboratory Tests Test 01/02/18 09:25 01/02/18 11:17 01/02/18 11:20 01/02/18 15:46 O2 Saturation 99 % (92-99) Arterial Blood pH 7.50 (7.35-7.45) Arterial Blood pCO2 at Patient Temp 30 mmHg (35-46) Arterial Blood pO2 at Patient Temp 163 mmHg (65-108) Arterial Blood HCO3 23 mmol/L (21-28) Arterial Blood Base Excess 1 mmol/L (-3-3) FiO2 100 Glucose (Fingerstick) 151 mg/dL (70-99) 149 mg/dL (70-99) Heparin Anti-Xa Act, Unfractionated 0.56 IU/mL (0.30-0.70) Test 01/02/18 18:16 01/02/18 20:31 01/03/18 00:40 01/03/18 00:50 Heparin Anti-Xa Act, Unfractionated 0.89 IU/mL (0.30-0.70) 0.42 IU/mL (0.30-0.70) Glucose (Fingerstick) 224 mg/dL (70-99) 205 mg/dL (70-99) Test 01/03/18 05:05 01/03/18 06:20 Glucose (Fingerstick) 160 mg/dL (70-99) White Blood Count 10.6 x10^3/uL (4.0-11.0) Red Blood Count 3.50 x10^6/uL (3.50-5.40) Hemoglobin 10.2 g/dL (12.0-15.5) Hematocrit 31.5 % (36.0-47.0) Mean Corpuscular Volume 90 fL (79-100) Mean Corpuscular Hemoglobin 29 pg (25-35) Mean Corpuscular Hemoglobin Concent 33 g/dL (31-37) Red Cell Distribution Width 17.1 % (11.5-14.5) Platelet Count 218 x10^3/uL (140-400) Neutrophils (%) (Auto) 71 % (31-73) Lymphocytes (%) (Auto) 15 % (24-48) Monocytes (%) (Auto) 14 % (0-9) Eosinophils (%) (Auto) 1 % (0-3) Basophils (%) (Auto) 0 % (0-3) Neutrophils # (Auto) 7.5 x10^3uL (1.8-7.7) Lymphocytes # (Auto) 1.5 x10^3/uL (1.0-4.8) Monocytes # (Auto) 1.5 x10^3/uL (0.0-1.1) Eosinophils # (Auto) 0.1 x10^3/uL (0.0-0.7) Basophils # (Auto) 0.0 x10^3/uL (0.0-0.2) Heparin Anti-Xa Act, Unfractionated 0.37 IU/mL (0.30-0.70) Triglycerides Level 154 mg/dL (0-150) Cholesterol Level 182 mg/dL (0-200) LDL Cholesterol, Calculated 110 mg/dL (0-100) VLDL Cholesterol, Calculated 31 mg/dL (0-40) Non-HDL Cholesterol Calculated 141 mg/dL (0-129) HDL Cholesterol 41 mg/dL (40-60) Cholesterol/HDL Ratio 4.4 Microbiology Micro Microbiology 01/02/18 Blood Culture - Preliminary, Resulted NO GROWTH AFTER 1 DAY Case Discussion Case Discussed with: Family (daughter and son) Physical Exam HEENT: Neck Supple W Full Motion LUNGS: Other (coarse) Heart: RRR Abdomen: Soft N/T, Other (obese abdomen) Extremities: No Edema Neurology: other (sedated) Assessment Assessment 1. sepsis --WBC decreased 2. NSTEMI --? demand mediated in setting of acute resp failure --continue heparin gtt; continue IV BB and ACEI --TTE with LVEF of 30%; not new according to daughter and has been about 20% ; previous PCI/stents - usually seen at --consider further ischemic evaluation when stabilizes 3. acute CHF --concur with diuretics; daily --control BP --obtain records from primary cardiology if can be determined - 4. DM, II --per primary service 5. morbid obesity, BMI > 68 6. HLD --start statin therapy JIMY PARKER MD 01/03/18 1711: CARDIO Progress Notes Assessment Assessment Patient seen and examined. Agree with TRAFFIC POLICE OFFICER's assessment and plan. Telemetry did not show any significant arrhythmias. 2-D echo results noted above. Plan further ischemic evaluation once respiratory status improves. Continue current management for sepsis JOSE RAMON JACKSON APRN Jan 03, 2018 09:02 JIMY PARKER MD Jan 03, 2018 17:11
[2018-01-03 09:21] LABS: FIO2 ABG 50
[2018-01-03 09:31] LABS: CALCIUM 7.7 mg/dL (8.5-10.1); CREATININE 1.9 mg/dL (0.6-1.0); MAGNESIUM 1.8 mg/dL (1.8-2.4); POTASSIUM 3.6 mmol/L (3.5-5.1)
--- NOTE | 2018-01-03 11:28 | PDOC ---
PULMONARY PROGRESS NOTES Subjective remains intubated improving oxygenation Vitals Vital Signs Date Time Temp Pulse Resp B/P (MAP) Pulse Ox O2 Delivery O2 Flow Rate FiO2 01/03/18 10:00 74 20 158/60 (92) 98 Ventilator 01/03/18 07:00 99.2 99.2 Lungs: Other (decrease bs) Cardiovascular: S1 Abdomen: Soft, Other (obese) Extremities: Other (1+edema) Labs Laboratory Tests Test 01/01/18 22:25 01/01/18 22:40 01/01/18 23:00 01/02/18 03:15 White Blood Count 14.9 x10^3/uL (4.0-11.0) Red Blood Count 4.26 x10^6/uL (3.50-5.40) Hemoglobin 12.3 g/dL (12.0-15.5) Hematocrit 38.7 % (36.0-47.0) Mean Corpuscular Volume 91 fL (79-100) Mean Corpuscular Hemoglobin 29 pg (25-35) Mean Corpuscular Hemoglobin Concent 32 g/dL (31-37) Red Cell Distribution Width 17.3 % (11.5-14.5) Platelet Count 297 x10^3/uL (140-400) Neutrophils (%) (Auto) 64 % (31-73) Lymphocytes (%) (Auto) 26 % (24-48) Monocytes (%) (Auto) 8 % (0-9) Eosinophils (%) (Auto) 2 % (0-3) Basophils (%) (Auto) 1 % (0-3) Neutrophils # (Auto) 9.5 x10^3uL (1.8-7.7) Lymphocytes # (Auto) 3.8 x10^3/uL (1.0-4.8) Monocytes # (Auto) 1.2 x10^3/uL (0.0-1.1) Eosinophils # (Auto) 0.3 x10^3/uL (0.0-0.7) Basophils # (Auto) 0.1 x10^3/uL (0.0-0.2) Prothrombin Time 13.3 SEC (11.7-14.0) Prothromb Time International Ratio 1.1 (0.8-1.1) Activated Partial Thromboplast Time 31 SEC (24-38) Sodium Level 139 mmol/L (136-145) Potassium Level 3.7 mmol/L (3.5-5.1) Chloride Level 101 mmol/L (98-107) Carbon Dioxide Level 28 mmol/L (21-32) Anion Gap 10 (6-14) Blood Urea Nitrogen 13 mg/dL (7-20) Creatinine 1.7 mg/dL (0.6-1.0) Estimated GFR (Cockcroft-Gault) 36.4 BUN/Creatinine Ratio 8 (6-20) Glucose Level 331 mg/dL (70-99) Lactic Acid Level 3.5 mmol/L (0.4-2.0) 1.9 mmol/L (0.4-2.0) Calcium Level 8.7 mg/dL (8.5-10.1) Magnesium Level 1.9 mg/dL (1.8-2.4) Total Bilirubin 0.4 mg/dL (0.2-1.0) Aspartate Amino Transf (AST/SGOT) 18 U/L (15-37) Alanine Aminotransferase (ALT/SGPT) 22 U/L (14-59) Alkaline Phosphatase 137 U/L (46-116) Creatine Kinase 183 U/L (26-192) Troponin I Quantitative < 0.017 ng/mL (0.000-0.055) NM-Ktf-I-Type Natriuretic Peptide 1542 pg/mL (0-124) Total Protein 8.2 g/dL (6.4-8.2) Albumin 2.7 g/dL (3.4-5.0) Albumin/Globulin Ratio 0.5 (1.0-1.7) Lipase 87 U/L (73-393) O2 Saturation 86 % (92-99) Arterial Blood pH 7.29 (7.35-7.45) Arterial Blood pCO2 at Patient Temp 57 mmHg (35-46) Arterial Blood pO2 at Patient Temp 57 mmHg (65-108) Arterial Blood HCO3 27 mmol/L (21-28) Arterial Blood Base Excess -1 mmol/L (-3-3) Oxyhemoglobin 84.9 % Methemoglobin 0.3 % (0.0-1.9) Carbon Monoxide, Quantitative 0.6 % (0.0-1.9) FiO2 100 Urine Collection Type Unknown Urine Color Yellow Urine Clarity Clear Urine pH 6.5 Urine Specific [place] 1.020 Urine Protein >=300 mg/dL (NEG-TRACE) Urine Glucose (UA) 500 mg/dL (NEG) Urine Ketones (Stick) Negative mg/dL (NEG) Urine Blood Small (NEG) Urine Nitrite Negative (NEG) Urine Bilirubin Negative (NEG) Urine Urobilinogen Dipstick 1.0 mg/dL (0.2 mg/dL) Urine Leukocyte Esterase Negative (NEG) Urine RBC 1-2 /HPF (0-2) Urine WBC 11-20 /HPF (0-4) Urine Squamous Epithelial Cells Few /LPF Urine Bacteria Many /HPF (0-FEW) Urine Mucus Slight /LPF Test 01/02/18 03:38 01/02/18 04:30 01/02/18 04:40 01/02/18 07:35 Glucose (Fingerstick) 191 mg/dL (70-99) Nasal Screen MRSA (PCR) Negative (Negative) Troponin I Quantitative 4.975 ng/mL (0.000-0.055) 7.937 ng/mL (0.000-0.055) Test 01/02/18 08:03 01/02/18 09:25 01/02/18 11:17 01/02/18 11:20 Glucose (Fingerstick) 165 mg/dL (70-99) 151 mg/dL (70-99) O2 Saturation 99 % (92-99) Arterial Blood pH 7.50 (7.35-7.45) Arterial Blood pCO2 at Patient Temp 30 mmHg (35-46) Arterial Blood pO2 at Patient Temp 163 mmHg (65-108) Arterial Blood HCO3 23 mmol/L (21-28) Arterial Blood Base Excess 1 mmol/L (-3-3) FiO2 100 Heparin Anti-Xa Act, Unfractionated 0.56 IU/mL (0.30-0.70) Test 01/02/18 15:46 01/02/18 18:16 01/02/18 20:31 01/03/18 00:40 Glucose (Fingerstick) 149 mg/dL (70-99) 224 mg/dL (70-99) Heparin Anti-Xa Act, Unfractionated 0.89 IU/mL (0.30-0.70) 0.42 IU/mL (0.30-0.70) Test 01/03/18 00:50 01/03/18 05:05 01/03/18 06:20 01/03/18 08:43 Glucose (Fingerstick) 205 mg/dL (70-99) 160 mg/dL (70-99) 165 mg/dL (70-99) White Blood Count 10.6 x10^3/uL (4.0-11.0) Red Blood Count 3.50 x10^6/uL (3.50-5.40) Hemoglobin 10.2 g/dL (12.0-15.5) Hematocrit 31.5 % (36.0-47.0) Mean Corpuscular Volume 90 fL (79-100) Mean Corpuscular Hemoglobin 29 pg (25-35) Mean Corpuscular Hemoglobin Concent 33 g/dL (31-37) Red Cell Distribution Width 17.1 % (11.5-14.5) Platelet Count 218 x10^3/uL (140-400) Neutrophils (%) (Auto) 71 % (31-73) Lymphocytes (%) (Auto) 15 % (24-48) Monocytes (%) (Auto) 14 % (0-9) Eosinophils (%) (Auto) 1 % (0-3) Basophils (%) (Auto) 0 % (0-3) Neutrophils # (Auto) 7.5 x10^3uL (1.8-7.7) Lymphocytes # (Auto) 1.5 x10^3/uL (1.0-4.8) Monocytes # (Auto) 1.5 x10^3/uL (0.0-1.1) Eosinophils # (Auto) 0.1 x10^3/uL (0.0-0.7) Basophils # (Auto) 0.0 x10^3/uL (0.0-0.2) Heparin Anti-Xa Act, Unfractionated 0.37 IU/mL (0.30-0.70) Sodium Level 142 mmol/L (136-145) Potassium Level 3.6 mmol/L (3.5-5.1) Chloride Level 105 mmol/L (98-107) Carbon Dioxide Level 28 mmol/L (21-32) Anion Gap 9 (6-14) Blood Urea Nitrogen 16 mg/dL (7-20) Creatinine 1.9 mg/dL (0.6-1.0) Estimated GFR (Cockcroft-Gault) 32.0 Glucose Level 171 mg/dL (70-99) Calcium Level 7.7 mg/dL (8.5-10.1) Magnesium Level 1.8 mg/dL (1.8-2.4) Triglycerides Level 154 mg/dL (0-150) Cholesterol Level 182 mg/dL (0-200) LDL Cholesterol, Calculated 110 mg/dL (0-100) VLDL Cholesterol, Calculated 31 mg/dL (0-40) Non-HDL Cholesterol Calculated 141 mg/dL (0-129) HDL Cholesterol 41 mg/dL (40-60) Cholesterol/HDL Ratio 4.4 Test 01/03/18 09:00 O2 Saturation 98 % (92-99) Arterial Blood pH 7.46 (7.35-7.45) Arterial Blood pCO2 at Patient Temp 36 mmHg (35-46) Arterial Blood pO2 at Patient Temp 118 mmHg (65-108) Arterial Blood HCO3 25 mmol/L (21-28) Arterial Blood Base Excess 1 mmol/L (-3-3) FiO2 50 Laboratory Tests Test 01/02/18 15:46 01/02/18 18:16 01/02/18 20:31 01/03/18 00:40 Glucose (Fingerstick) 149 mg/dL (70-99) 224 mg/dL (70-99) Heparin Anti-Xa Act, Unfractionated 0.89 IU/mL (0.30-0.70) 0.42 IU/mL (0.30-0.70) Test 01/03/18 00:50 01/03/18 05:05 01/03/18 06:20 01/03/18 08:43 Glucose (Fingerstick) 205 mg/dL (70-99) 160 mg/dL (70-99) 165 mg/dL (70-99) White Blood Count 10.6 x10^3/uL (4.0-11.0) Red Blood Count 3.50 x10^6/uL (3.50-5.40) Hemoglobin 10.2 g/dL (12.0-15.5) Hematocrit 31.5 % (36.0-47.0) Mean Corpuscular Volume 90 fL (79-100) Mean Corpuscular Hemoglobin 29 pg (25-35) Mean Corpuscular Hemoglobin Concent 33 g/dL (31-37) Red Cell Distribution Width 17.1 % (11.5-14.5) Platelet Count 218 x10^3/uL (140-400) Neutrophils (%) (Auto) 71 % (31-73) Lymphocytes (%) (Auto) 15 % (24-48) Monocytes (%) (Auto) 14 % (0-9) Eosinophils (%) (Auto) 1 % (0-3) Basophils (%) (Auto) 0 % (0-3) Neutrophils # (Auto) 7.5 x10^3uL (1.8-7.7) Lymphocytes # (Auto) 1.5 x10^3/uL (1.0-4.8) Monocytes # (Auto) 1.5 x10^3/uL (0.0-1.1) Eosinophils # (Auto) 0.1 x10^3/uL (0.0-0.7) Basophils # (Auto) 0.0 x10^3/uL (0.0-0.2) Heparin Anti-Xa Act, Unfractionated 0.37 IU/mL (0.30-0.70) Sodium Level 142 mmol/L (136-145) Potassium Level 3.6 mmol/L (3.5-5.1) Chloride Level 105 mmol/L (98-107) Carbon Dioxide Level 28 mmol/L (21-32) Anion Gap 9 (6-14) Blood Urea Nitrogen 16 mg/dL (7-20) Creatinine 1.9 mg/dL (0.6-1.0) Estimated GFR (Cockcroft-Gault) 32.0 Glucose Level 171 mg/dL (70-99) Calcium Level 7.7 mg/dL (8.5-10.1) Magnesium Level 1.8 mg/dL (1.8-2.4) Triglycerides Level 154 mg/dL (0-150) Cholesterol Level 182 mg/dL (0-200) LDL Cholesterol, Calculated 110 mg/dL (0-100) VLDL Cholesterol, Calculated 31 mg/dL (0-40) Non-HDL Cholesterol Calculated 141 mg/dL (0-129) HDL Cholesterol 41 mg/dL (40-60) Cholesterol/HDL Ratio 4.4 Test 01/03/18 09:00 O2 Saturation 98 % (92-99) Arterial Blood pH 7.46 (7.35-7.45) Arterial Blood pCO2 at Patient Temp 36 mmHg (35-46) Arterial Blood pO2 at Patient Temp 118 mmHg (65-108) Arterial Blood HCO3 25 mmol/L (21-28) Arterial Blood Base Excess 1 mmol/L (-3-3) FiO2 50 Medications Active Scripts Medications Dose Route/Sig Max Daily Dose Days Date Category Lantus (Insulin Glargine,Hum.rec.anlog) 100 Unit/1 Ml Vial 1 Unit SQ 01/02/18 Reported Novolog Flexpen (Insulin Aspart) 100 Unit/1 Ml Insuln.pen 1 Unit SQ 01/02/18 Reported Protonix (Pantoprazole Sodium) 40 Mg Granpkt.dr 40 Mg PO DAILY 01/02/18 Reported Bidil Tablet (Isosorb Dinit/Hydralazine Hcl) 1 Each Tablet 1 Each PO TID 01/02/18 Reported Carvedilol 25 Mg Tablet 25 Mg PO BIDWMEALS 01/02/18 Reported Amlodipine Besylate 5 Mg Tablet 5 Mg PO DAILY 01/02/18 Reported Entresto 49 mg-51 mg Tablet (Sacubitril/Valsartan) 1 Each Tablet 1 Each PO BID 01/02/18 Reported Fluoxetine Hcl 40 Mg Capsule 1 Cap PO DAILY 01/02/18 Reported NITROGLYCERIN SubLingual (Nitroglycerin) 0.4 Mg Tab.subl 0.4 Mg SL PRN Q5MIN PRN 01/02/18 Reported Clopidogrel (Clopidogrel Bisulfate) 75 Mg Tablet 1 Tab PO DAILY 01/02/18 Reported Potassium Chloride 20 Meq Tablet.er 20 Meq PO DAILY 01/02/18 Reported Furosemide 80 Mg Tablet 1 Tab PO BID 01/02/18 Reported Atorvastatin Calcium 40 Mg Tablet 1 Tab PO QHS 01/02/18 Reported Comments CXR improving infiltrates Impression . 1. Uvpme-th-swhfckq hypoxic and hypercapnic respiratory failure secondary to non-ST segment myocardial infarction and acute congestive heart failure. Underlying chronic obstructive pulmonary disease may have contributed to the symptoms. 2. Clinically less likely pneumonia, but cannot be completely ruled out due to asymmetric infiltrates. 3. Abnormal chest x-ray with bilateral infiltrates, more on the right than on the left, likely related to pulmonary edema. She has a large cardiac silhouette as well. Cannot exclude underlying Pneumonia. 4. Suspected underlying chronic obstructive pulmonary disease. 5. Underlying obstructive sleep apnea with suspected obesity hypoventilation syndrome. 6. Acute kidney injury. 7. Moderate protein-calorie malnutrition, with an albumin level of 2.7. 8. Increasing troponin/ NSTMI 9. 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 1. Continue with present vent support and make necessary adjustments based on ABGs. 2. Diuresis. 3. empiric antibiotic. 4. Follow Cardiology recommendation regarding the need for cardiac catheterization.EF 30% 5. echocardiogram.reviewed 6. Follow chest x-rays. 7. Continue heparin per Cardiology recommendation. 8. PPI for stress ulcer prophylaxis. 9. Discussed with the patient's family, RN and RT. 10. Wean oxygen/ PEEP/ possible CPAP trial later today Critical care time 30 minutes. MARY MATSON MD Jan 03, 2018 11:28
--- NOTE | 2018-01-03 12:09 | PDOC ---
PROGRESS NOTES Chief Complaint Chief Complaint acute hypoxic resap failure with CHF ACUTE systolic CHF exacerbation EF 30% copd possible bl PNA ckd3 dm2 htn Severe morbid obesity NSTEMI plan: fu with card , pulm ICU care intubated, sedated OGT feeding cont lasix iv daily intake and output monitor, BP ok, monitor urine output on heparin drip, may need cath soon cont levaquin, duoneb gi ppx ssi CXR daily talked to nurse History of Present Illness History of Present Illness ROS: no fever, chills, sedated, intubated vent setting better to 50%/8 CXR slightly better, still bl infiltrates Vitals Vitals Vital Signs Date Time Temp Pulse Resp B/P (MAP) Pulse Ox O2 Delivery O2 Flow Rate FiO2 01/03/18 11:43 98 Ventilator 01/03/18 11:00 74 20 150/60 (90) 01/03/18 07:00 99.2 99.2 Physical Exam Physical Exam sedated , intubated General: Other (sedated) Heart: Regular rate, Normal S1, Normal S2, Other (heart tones distant and difficult to auscultate) Lungs: Other (bl coarse bs) Abdomen: Other (obese abdomen) Extremities: No edema Skin: No rashes Labs LABS Laboratory Tests Test 01/02/18 15:46 01/02/18 18:16 01/02/18 20:31 01/03/18 00:40 Glucose (Fingerstick) 149 mg/dL (70-99) 224 mg/dL (70-99) Heparin Anti-Xa Act, Unfractionated 0.89 IU/mL (0.30-0.70) 0.42 IU/mL (0.30-0.70) Test 01/03/18 00:50 01/03/18 05:05 01/03/18 06:20 01/03/18 08:43 Glucose (Fingerstick) 205 mg/dL (70-99) 160 mg/dL (70-99) 165 mg/dL (70-99) White Blood Count 10.6 x10^3/uL (4.0-11.0) Red Blood Count 3.50 x10^6/uL (3.50-5.40) Hemoglobin 10.2 g/dL (12.0-15.5) Hematocrit 31.5 % (36.0-47.0) Mean Corpuscular Volume 90 fL (79-100) Mean Corpuscular Hemoglobin 29 pg (25-35) Mean Corpuscular Hemoglobin Concent 33 g/dL (31-37) Red Cell Distribution Width 17.1 % (11.5-14.5) Platelet Count 218 x10^3/uL (140-400) Neutrophils (%) (Auto) 71 % (31-73) Lymphocytes (%) (Auto) 15 % (24-48) Monocytes (%) (Auto) 14 % (0-9) Eosinophils (%) (Auto) 1 % (0-3) Basophils (%) (Auto) 0 % (0-3) Neutrophils # (Auto) 7.5 x10^3uL (1.8-7.7) Lymphocytes # (Auto) 1.5 x10^3/uL (1.0-4.8) Monocytes # (Auto) 1.5 x10^3/uL (0.0-1.1) Eosinophils # (Auto) 0.1 x10^3/uL (0.0-0.7) Basophils # (Auto) 0.0 x10^3/uL (0.0-0.2) Heparin Anti-Xa Act, Unfractionated 0.37 IU/mL (0.30-0.70) Sodium Level 142 mmol/L (136-145) Potassium Level 3.6 mmol/L (3.5-5.1) Chloride Level 105 mmol/L (98-107) Carbon Dioxide Level 28 mmol/L (21-32) Anion Gap 9 (6-14) Blood Urea Nitrogen 16 mg/dL (7-20) Creatinine 1.9 mg/dL (0.6-1.0) Estimated GFR (Cockcroft-Gault) 32.0 Glucose Level 171 mg/dL (70-99) Calcium Level 7.7 mg/dL (8.5-10.1) Magnesium Level 1.8 mg/dL (1.8-2.4) Triglycerides Level 154 mg/dL (0-150) Cholesterol Level 182 mg/dL (0-200) LDL Cholesterol, Calculated 110 mg/dL (0-100) VLDL Cholesterol, Calculated 31 mg/dL (0-40) Non-HDL Cholesterol Calculated 141 mg/dL (0-129) HDL Cholesterol 41 mg/dL (40-60) Cholesterol/HDL Ratio 4.4 Test 01/03/18 09:00 O2 Saturation 98 % (92-99) Arterial Blood pH 7.46 (7.35-7.45) Arterial Blood pCO2 at Patient Temp 36 mmHg (35-46) Arterial Blood pO2 at Patient Temp 118 mmHg (65-108) Arterial Blood HCO3 25 mmol/L (21-28) Arterial Blood Base Excess 1 mmol/L (-3-3) FiO2 50 Assessment and Plan Assessmemt and Plan Problems Medical Problems: (1) Hyperglycemia Status: Acute (2) Hypoxia Status: Acute (3) Renal insufficiency Status: Acute (4) Respiratory failure Status: Acute (5) Septic shock Status: Acute (6) UTI (urinary tract infection) Status: Acute Comment Review of Relevant I have reviewed the following items linden (where applicable) has been applied. Labs Laboratory Tests Test 01/01/18 22:25 01/01/18 22:40 01/01/18 23:00 01/02/18 03:15 White Blood Count 14.9 x10^3/uL (4.0-11.0) Red Blood Count 4.26 x10^6/uL (3.50-5.40) Hemoglobin 12.3 g/dL (12.0-15.5) Hematocrit 38.7 % (36.0-47.0) Mean Corpuscular Volume 91 fL (79-100) Mean Corpuscular Hemoglobin 29 pg (25-35) Mean Corpuscular Hemoglobin Concent 32 g/dL (31-37) Red Cell Distribution Width 17.3 % (11.5-14.5) Platelet Count 297 x10^3/uL (140-400) Neutrophils (%) (Auto) 64 % (31-73) Lymphocytes (%) (Auto) 26 % (24-48) Monocytes (%) (Auto) 8 % (0-9) Eosinophils (%) (Auto) 2 % (0-3) Basophils (%) (Auto) 1 % (0-3) Neutrophils # (Auto) 9.5 x10^3uL (1.8-7.7) Lymphocytes # (Auto) 3.8 x10^3/uL (1.0-4.8) Monocytes # (Auto) 1.2 x10^3/uL (0.0-1.1) Eosinophils # (Auto) 0.3 x10^3/uL (0.0-0.7) Basophils # (Auto) 0.1 x10^3/uL (0.0-0.2) Prothrombin Time 13.3 SEC (11.7-14.0) Prothromb Time International Ratio 1.1 (0.8-1.1) Activated Partial Thromboplast Time 31 SEC (24-38) Sodium Level 139 mmol/L (136-145) Potassium Level 3.7 mmol/L (3.5-5.1) Chloride Level 101 mmol/L (98-107) Carbon Dioxide Level 28 mmol/L (21-32) Anion Gap 10 (6-14) Blood Urea Nitrogen 13 mg/dL (7-20) Creatinine 1.7 mg/dL (0.6-1.0) Estimated GFR (Cockcroft-Gault) 36.4 BUN/Creatinine Ratio 8 (6-20) Glucose Level 331 mg/dL (70-99) Lactic Acid Level 3.5 mmol/L (0.4-2.0) 1.9 mmol/L (0.4-2.0) Calcium Level 8.7 mg/dL (8.5-10.1) Magnesium Level 1.9 mg/dL (1.8-2.4) Total Bilirubin 0.4 mg/dL (0.2-1.0) Aspartate Amino Transf (AST/SGOT) 18 U/L (15-37) Alanine Aminotransferase (ALT/SGPT) 22 U/L (14-59) Alkaline Phosphatase 137 U/L (46-116) Creatine Kinase 183 U/L (26-192) Troponin I Quantitative < 0.017 ng/mL (0.000-0.055) GT-Uwr-D-Type Natriuretic Peptide 1542 pg/mL (0-124) Total Protein 8.2 g/dL (6.4-8.2) Albumin 2.7 g/dL (3.4-5.0) Albumin/Globulin Ratio 0.5 (1.0-1.7) Lipase 87 U/L (73-393) O2 Saturation 86 % (92-99) Arterial Blood pH 7.29 (7.35-7.45) Arterial Blood pCO2 at Patient Temp 57 mmHg (35-46) Arterial Blood pO2 at Patient Temp 57 mmHg (65-108) Arterial Blood HCO3 27 mmol/L (21-28) Arterial Blood Base Excess -1 mmol/L (-3-3) Oxyhemoglobin 84.9 % Methemoglobin 0.3 % (0.0-1.9) Carbon Monoxide, Quantitative 0.6 % (0.0-1.9) FiO2 100 Urine Collection Type Unknown Urine Color Yellow Urine Clarity Clear Urine pH 6.5 Urine Specific [place] 1.020 Urine Protein >=300 mg/dL (NEG-TRACE) Urine Glucose (UA) 500 mg/dL (NEG) Urine Ketones (Stick) Negative mg/dL (NEG) Urine Blood Small (NEG) Urine Nitrite Negative (NEG) Urine Bilirubin Negative (NEG) Urine Urobilinogen Dipstick 1.0 mg/dL (0.2 mg/dL) Urine Leukocyte Esterase Negative (NEG) Urine RBC 1-2 /HPF (0-2) Urine WBC 11-20 /HPF (0-4) Urine Squamous Epithelial Cells Few /LPF Urine Bacteria Many /HPF (0-FEW) Urine Mucus Slight /LPF Test 01/02/18 03:38 01/02/18 04:30 01/02/18 04:40 01/02/18 07:35 Glucose (Fingerstick) 191 mg/dL (70-99) Nasal Screen MRSA (PCR) Negative (Negative) Troponin I Quantitative 4.975 ng/mL (0.000-0.055) 7.937 ng/mL (0.000-0.055) Test 01/02/18 08:03 01/02/18 09:25 01/02/18 11:17 01/02/18 11:20 Glucose (Fingerstick) 165 mg/dL (70-99) 151 mg/dL (70-99) O2 Saturation 99 % (92-99) Arterial Blood pH 7.50 (7.35-7.45) Arterial Blood pCO2 at Patient Temp 30 mmHg (35-46) Arterial Blood pO2 at Patient Temp 163 mmHg (65-108) Arterial Blood HCO3 23 mmol/L (21-28) Arterial Blood Base Excess 1 mmol/L (-3-3) FiO2 100 Heparin Anti-Xa Act, Unfractionated 0.56 IU/mL (0.30-0.70) Test 01/02/18 15:46 01/02/18 18:16 01/02/18 20:31 01/03/18 00:40 Glucose (Fingerstick) 149 mg/dL (70-99) 224 mg/dL (70-99) Heparin Anti-Xa Act, Unfractionated 0.89 IU/mL (0.30-0.70) 0.42 IU/mL (0.30-0.70) Test 01/03/18 00:50 01/03/18 05:05 01/03/18 06:20 01/03/18 08:43 Glucose (Fingerstick) 205 mg/dL (70-99) 160 mg/dL (70-99) 165 mg/dL (70-99) White Blood Count 10.6 x10^3/uL (4.0-11.0) Red Blood Count 3.50 x10^6/uL (3.50-5.40) Hemoglobin 10.2 g/dL (12.0-15.5) Hematocrit 31.5 % (36.0-47.0) Mean Corpuscular Volume 90 fL (79-100) Mean Corpuscular Hemoglobin 29 pg (25-35) Mean Corpuscular Hemoglobin Concent 33 g/dL (31-37) Red Cell Distribution Width 17.1 % (11.5-14.5) Platelet Count 218 x10^3/uL (140-400) Neutrophils (%) (Auto) 71 % (31-73) Lymphocytes (%) (Auto) 15 % (24-48) Monocytes (%) (Auto) 14 % (0-9) Eosinophils (%) (Auto) 1 % (0-3) Basophils (%) (Auto) 0 % (0-3) Neutrophils # (Auto) 7.5 x10^3uL (1.8-7.7) Lymphocytes # (Auto) 1.5 x10^3/uL (1.0-4.8) Monocytes # (Auto) 1.5 x10^3/uL (0.0-1.1) Eosinophils # (Auto) 0.1 x10^3/uL (0.0-0.7) Basophils # (Auto) 0.0 x10^3/uL (0.0-0.2) Heparin Anti-Xa Act, Unfractionated 0.37 IU/mL (0.30-0.70) Sodium Level 142 mmol/L (136-145) Potassium Level 3.6 mmol/L (3.5-5.1) Chloride Level 105 mmol/L (98-107) Carbon Dioxide Level 28 mmol/L (21-32) Anion Gap 9 (6-14) Blood Urea Nitrogen 16 mg/dL (7-20) Creatinine 1.9 mg/dL (0.6-1.0) Estimated GFR (Cockcroft-Gault) 32.0 Glucose Level 171 mg/dL (70-99) Calcium Level 7.7 mg/dL (8.5-10.1) Magnesium Level 1.8 mg/dL (1.8-2.4) Triglycerides Level 154 mg/dL (0-150) Cholesterol Level 182 mg/dL (0-200) LDL Cholesterol, Calculated 110 mg/dL (0-100) VLDL Cholesterol, Calculated 31 mg/dL (0-40) Non-HDL Cholesterol Calculated 141 mg/dL (0-129) HDL Cholesterol 41 mg/dL (40-60) Cholesterol/HDL Ratio 4.4 Test 01/03/18 09:00 O2 Saturation 98 % (92-99) Arterial Blood pH 7.46 (7.35-7.45) Arterial Blood pCO2 at Patient Temp 36 mmHg (35-46) Arterial Blood pO2 at Patient Temp 118 mmHg (65-108) Arterial Blood HCO3 25 mmol/L (21-28) Arterial Blood Base Excess 1 mmol/L (-3-3) FiO2 50 Laboratory Tests Test 01/02/18 15:46 01/02/18 18:16 01/02/18 20:31 01/03/18 00:40 Glucose (Fingerstick) 149 mg/dL (70-99) 224 mg/dL (70-99) Heparin Anti-Xa Act, Unfractionated 0.89 IU/mL (0.30-0.70) 0.42 IU/mL (0.30-0.70) Test 01/03/18 00:50 01/03/18 05:05 01/03/18 06:20 01/03/18 08:43 Glucose (Fingerstick) 205 mg/dL (70-99) 160 mg/dL (70-99) 165 mg/dL (70-99) White Blood Count 10.6 x10^3/uL (4.0-11.0) Red Blood Count 3.50 x10^6/uL (3.50-5.40) Hemoglobin 10.2 g/dL (12.0-15.5) Hematocrit 31.5 % (36.0-47.0) Mean Corpuscular Volume 90 fL (79-100) Mean Corpuscular Hemoglobin 29 pg (25-35) Mean Corpuscular Hemoglobin Concent 33 g/dL (31-37) Red Cell Distribution Width 17.1 % (11.5-14.5) Platelet Count 218 x10^3/uL (140-400) Neutrophils (%) (Auto) 71 % (31-73) Lymphocytes (%) (Auto) 15 % (24-48) Monocytes (%) (Auto) 14 % (0-9) Eosinophils (%) (Auto) 1 % (0-3) Basophils (%) (Auto) 0 % (0-3) Neutrophils # (Auto) 7.5 x10^3uL (1.8-7.7) Lymphocytes # (Auto) 1.5 x10^3/uL (1.0-4.8) Monocytes # (Auto) 1.5 x10^3/uL (0.0-1.1) Eosinophils # (Auto) 0.1 x10^3/uL (0.0-0.7) Basophils # (Auto) 0.0 x10^3/uL (0.0-0.2) Heparin Anti-Xa Act, Unfractionated 0.37 IU/mL (0.30-0.70) Sodium Level 142 mmol/L (136-145) Potassium Level 3.6 mmol/L (3.5-5.1) Chloride Level 105 mmol/L (98-107) Carbon Dioxide Level 28 mmol/L (21-32) Anion Gap 9 (6-14) Blood Urea Nitrogen 16 mg/dL (7-20) Creatinine 1.9 mg/dL (0.6-1.0) Estimated GFR (Cockcroft-Gault) 32.0 Glucose Level 171 mg/dL (70-99) Calcium Level 7.7 mg/dL (8.5-10.1) Magnesium Level 1.8 mg/dL (1.8-2.4) Triglycerides Level 154 mg/dL (0-150) Cholesterol Level 182 mg/dL (0-200) LDL Cholesterol, Calculated 110 mg/dL (0-100) VLDL Cholesterol, Calculated 31 mg/dL (0-40) Non-HDL Cholesterol Calculated 141 mg/dL (0-129) HDL Cholesterol 41 mg/dL (40-60) Cholesterol/HDL Ratio 4.4 Test 01/03/18 09:00 O2 Saturation 98 % (92-99) Arterial Blood pH 7.46 (7.35-7.45) Arterial Blood pCO2 at Patient Temp 36 mmHg (35-46) Arterial Blood pO2 at Patient Temp 118 mmHg (65-108) Arterial Blood HCO3 25 mmol/L (21-28) Arterial Blood Base Excess 1 mmol/L (-3-3) FiO2 50 Microbiology 01/02/18 Blood Culture - Preliminary, Resulted NO GROWTH AFTER 1 DAY Medications Current Medications Propofol 100 ml @ 0 mls/hr CONT PRN IV PER PROTOCOL Last administered on at 06:48; Start 01/01/18 at 23:00 Fentanyl Citrate (Fentanyl 2ml Vial) 25 mcg PRN Q1HR PRN IV MILD PAIN; Start at 23:00 Fentanyl Citrate (Fentanyl 2ml Vial) 50 mcg PRN Q1HR PRN IV MOD TO SEVERE PAIN Last administered on 01/01/18at 23:57; Start 01/01/18 at 23:00 Chlorhexidine Gluconate (Peridex) 15 ml BID MM Last administered on 01/03/18at 08:57; Start 01/02/18 at 09:00 Aztreonam 2 gm/ Dextrose 100 ml @ 200 mls/hr 1X ONCE IV Last administered on 01/02/18at 00:23; Start 01/01/18 at 23:30; Stop 01/01/18 at 23:59; Status DC Vancomycin HCl 2 gm/Sodium Chloride 500 ml @ 250 mls/hr 1X ONCE IV Last administered on 01/02/18at 01:13; Start 01/02/18 at 01:30; Stop 01/02/18 at 03:29 ; Status DC Levofloxacin/ Dextrose 100 ml @ 100 mls/hr 1X ONCE IV Last administered on at 23:56; Start 01/01/18 at 23:30; Stop 01/02/18 at 00:29; Status DC Propofol 50 ml @ As Directed STK-MED ONCE IV ; Start 01/01/18 at 23:16; Stop at 23:17; Status DC Lidocaine/ Epinephrine (LIDOCAINE 1%-EPI 1:100,000 Multi-Dose) 20 ml STK-MED ONCE .ROUTE ; Start 01/01/18 at 23:40; Stop 01/01/18 at 23:41; Status DC Propofol 50 ml @ As Directed STK-MED ONCE IV ; Start 01/01/18 at 23:50; Stop at 23:51; Status DC Sodium Chloride 1,000 ml @ 1,000 mls/hr 1X ONCE IV Last administered on at 00:00; Start 01/02/18 at 01:00; Stop 01/02/18 at 01:59; Status DC Sodium Chloride 1,000 ml @ 1,000 mls/hr 1X ONCE IV Last administered on at 01:12; Start 01/02/18 at 01:00; Stop 01/02/18 at 01:59; Status DC Ondansetron HCl (Zofran) 4 mg PRN Q8HRS PRN IV NAUSEA/VOMITING 1ST CHOICE; Start 01/02/18 at 01:30; Stop 01/03/18 at 01:29; Status DC Insulin Human Lispro (HumaLOG) 0-5 UNITS TIDWMEALS SQ ; Start 01/02/18 at 08:00 ; Stop 01/02/18 at 11:03; Status DC Dextrose (Dextrose 50%-Water Syringe) 12.5 gm PRN Q15MIN PRN IV SEE COMMENTS; Start 01/02/18 at 01:30 Heparin Sodium/ Dextrose 500 ml @ 0 mls/hr CONT PRN IV SEE I/O RECORD Last administered on 01/02/18at 16:25; Start 01/02/18 at 05:45 Heparin Sodium (Porcine) (Heparin Sodium) 5,100 unit PRN Q6HRS PRN IV FOR UFH LEVEL LESS THAN 0.2; Start 01/02/18 at 05:45 Info (Anti-Coagulation Monitoring By Pharmacy) 1 each PRN DAILY PRN MC SEE COMMENTS Last administered on 01/02/18at 16:31; Start 01/02/18 at 05:45 Etomidate (Amidate) 20 mg 1X ONCE IV Last administered on 01/01/18at 22:31; Start 01/02/18 at 06:00; Stop 01/02/18 at 06:01; Status DC Rocuronium [place] (Zemuron) 50 mg 1X ONCE IV Last administered on 01/01/18at 22:31; Start 01/02/18 at 06:00; Stop 01/02/18 at 06:01; Status DC Enalaprilat (Vasotec Inj) 2.5 mg PRN Q6HRS PRN IVP HYPERTENSION, SEE COMMENTS Last administered on 01/02/18at 18:10; Start 01/02/18 at 09:00 Metoprolol Tartrate (Lopressor Vial) 5 mg PRN Q6HRS PRN IVP HYPERTENSION, SEE COMMENTS; Start 01/02/18 at 10:30; Stop 01/02/18 at 10:59; Status DC Famotidine (Pepcid Vial) 20 mg QHS IVP Last administered on 01/02/18at 21:12; Start 01/02/18 at 21:00 Furosemide (Lasix) 60 mg 1X ONCE IVP Last administered on 01/02/18at 11:18; Start 01/02/18 at 11:30; Stop 01/02/18 at 11:31; Status DC Levofloxacin/ Dextrose 100 ml @ 100 mls/hr Q24H IV Last administered on at 23:09; Start 01/02/18 at 23:00 Metoprolol Tartrate (Lopressor Vial) 5 mg Q6HRS IVP Last administered on at 06:07; Start 01/02/18 at 12:00 Insulin Human Lispro (HumaLOG) 0-5 UNITS Q4HRS SQ Last administered on at 08:54; Start 01/02/18 at 12:00 Furosemide (Lasix) 60 mg 1X ONCE IVP Last administered on 01/03/18at 08:57; Start 01/03/18 at 09:00; Stop 01/03/18 at 09:01; Status DC Furosemide (Lasix) 40 mg [id number] IVP ; Start 01/04/18 at 09:00; Stop 01/04/18 at 09:00; Status DC Atorvastatin Calcium (Lipitor) 40 mg QHS PO ; Start 01/03/18 at 21:00 Furosemide (Lasix) 40 mg DAILY IVP ; Start 01/04/18 at 09:00 Active Scripts Active Reported Lantus (Insulin Glargine,Hum.rec.anlog) 100 Unit/1 Ml Vial 1 Unit SQ Novolog Flexpen (Insulin Aspart) 100 Unit/1 Ml Insuln.pen 1 Unit SQ Protonix (Pantoprazole Sodium) 40 Mg Granpkt.dr 40 Mg PO DAILY Bidil Tablet (Isosorb Dinit/Hydralazine Hcl) 1 Each Tablet 1 Each PO TID Carvedilol 25 Mg Tablet 25 Mg PO BIDWMEALS Amlodipine Besylate 5 Mg Tablet 5 Mg PO DAILY Entresto 49 mg-51 mg Tablet (Sacubitril/Valsartan) 1 Each Tablet 1 Each PO BID Fluoxetine Hcl 40 Mg Capsule 1 Cap PO DAILY NITROGLYCERIN SubLingual (Nitroglycerin) 0.4 Mg Tab.subl 0.4 Mg SL PRN Q5MIN PRN Clopidogrel (Clopidogrel Bisulfate) 75 Mg Tablet 1 Tab PO DAILY Potassium Chloride 20 Meq Tablet.er 20 Meq PO DAILY Furosemide 80 Mg Tablet 1 Tab PO BID Atorvastatin Calcium 40 Mg Tablet 1 Tab PO QHS Vitals/I & O Vital Sign - Last 24 Hours 01/02/18 01/02/18 01/02/18 01/02/18 13:00 13:17 14:00 15:00 Pulse 70 68 70 Resp 20 20 20 B/P (MAP) 144/81 (102) 131/78 (95) 155/94 (114) Pulse Ox 100 98 100 100 O2 Delivery Ventilator Ventilator Ventilator Ventilator 01/02/18 01/02/18 01/02/18 01/02/18 15:21 16:00 16:00 16:27 Temp 98.2 98.2 Pulse 74 Resp 20 B/P (MAP) 156/84 (108) Pulse Ox 100 100 O2 Delivery Ventilator Mechanical Ventilator Ventilator Ventilator 01/02/18 01/02/18 01/02/18 01/02/18 17:00 17:05 17:20 18:00 Pulse 75 78 74 Resp 20 20 B/P (MAP) 169/102 (124) 169/102 173/106 (128) Pulse Ox 100 100 100 O2 Delivery Ventilator Ventilator Ventilator 01/02/18 01/02/18 01/02/18 01/02/18 18:10 19:00 19:47 20:00 Pulse 76 78 Resp 20 B/P (MAP) 173/106 176/104 (128) Pulse Ox 100 100 O2 Delivery Ventilator Ventilator Mechanical Ventilator 01/02/18 01/02/18 01/02/18 01/02/18 20:00 21:00 21:06 22:00 Temp 97.9 97.9 Pulse 78 78 76 Resp 20 20 20 B/P (MAP) 170/104 (126) 170/99 (122) 126/63 (84) Pulse Ox 100 100 100 97 O2 Delivery Ventilator Ventilator Ventilator Ventilator 01/02/18 01/02/18 01/03/18 01/03/18 23:00 23:40 00:00 00:00 Temp 97.7 97.7 Pulse 76 76 Resp 20 20 B/P (MAP) 131/64 (86) 139/70 (93) Pulse Ox 100 100 93 O2 Delivery Ventilator Ventilator Ventilator Mechanical Ventilator 01/03/18 01/03/18 01/03/18 01/03/18 00:34 01:00 01:40 02:00 Pulse 81 76 74 Resp 20 20 B/P (MAP) 139/70 140/74 (96) 110/67 (81) Pulse Ox 96 97 95 O2 Delivery Ventilator Ventilator Ventilator 01/03/18 01/03/18 01/03/18 01/03/18 03:00 03:50 04:00 04:08 Temp 97.8 97.8 Pulse 72 76 Resp 20 20 B/P (MAP) 153/92 (112) 169/100 (123) Pulse Ox 100 100 100 O2 Delivery Ventilator Ventilator Ventilator Mechanical Ventilator 01/03/18 01/03/18 01/03/18 01/03/18 05:00 05:40 06:00 06:07 Pulse 76 76 77 Resp 20 20 B/P (MAP) 176/99 (124) 110/59 (76) 170/99 Pulse Ox 100 100 98 O2 Delivery Ventilator Ventilator Ventilator 01/03/18 01/03/18 01/03/18 01/03/18 07:00 07:38 08:00 08:00 Temp 99.2 99.2 Pulse 77 76 Resp 20 20 B/P (MAP) 138/74 (95) 140/59 (86) Pulse Ox 100 100 98 O2 Delivery Ventilator Ventilator Ventilator Mechanical Ventilator 01/03/18 01/03/18 01/03/18 01/03/18 09:00 09:19 10:00 11:00 Pulse 90 74 74 Resp 20 20 20 B/P (MAP) 172/59 (96) 158/60 (92) 150/60 (90) Pulse Ox 98 97 98 98 O2 Delivery Ventilator Ventilator Ventilator Ventilator 01/03/18 11:43 Pulse Ox 98 O2 Delivery Ventilator Intake and Output 01/02/18 01/02/18 01/03/18 15:00 23:00 07:00 Intake Total 2005.42 ml 1766 ml Output Total 2645 ml 820 ml 590 ml Balance -2645 ml 1185.42 ml 1176 ml DUNCAN DC MD Jan 03, 2018 12:09
[2018-01-03 14:23] LABS: BASE EXCESS ABG 1 mmol/L (-3-3); HCO3 ABG 26 mmol/L (21-28); PCO2 ABG 44 mmHg (35-46); PO2 ABG 94 mmHg (65-108); SAT O2 ABG 97 % (92-99)
[2018-01-03 14:25] LABS: FIO2 ABG 40
[2018-01-03] MEDS: ENALAPRILAT 2.5 MG/2 ML VIAL. IVP PRN (14:36)
[2018-01-03] MEDS: ATORVASTATIN CALCIUM 40 MG TABLET. PO SCH (19:13)
[2018-01-03] MEDS: HEPARIN 25,000UTS/500ML PREMIX 500 ML IV PRN (23:16)
[2018-01-04] VITALS (24 sets, daily range): BP systolic 116–195; BP diastolic 60–105
[2018-01-04] MEDS: NYSTATIN TOPICAL POWDER 15GM BOTTLE. TP SCH ×3 (00:14→22:15)
[2018-01-04] MEDS: FAMOTIDINE 20 MG/2 ML VIAL IVP SCH (00:14)
[2018-01-04] MEDS: METOPROLOL TARTRATE 5 MG/5 ML VIAL. IVP SCH ×2 (00:20→06:02)
[2018-01-04] MEDS: INSULIN LISPRO 300 UNITS/3 ML INSULN.PEN. SQ SCH ×5 (04:00→16:41)
[2018-01-04 06:13] LABS: BASO # 0.1 x10^3/uL (0.0-0.2); BASO % 1 % (0-3); EOS # 0.2 x10^3/uL (0.0-0.7); EOS % 2 % (0-3); HEMATOCRIT 29.8 % (36.0-47.0); HEMOGLOBIN 9.9 g/dL (12.0-15.5); LYMPH # 1.7 x10^3/uL (1.0-4.8); LYMPH % 16 % (24-48); MEAN CORPUSCULAR HEMOGLOBIN 30 pg (25-35); MEAN CORPUSCULAR HGB CONC 33 g/dL (31-37); MEAN CORPUSCULAR VOLUME 90 fL (79-100); MONO # 1.5 x10^3/uL (0.0-1.1); MONO % 14 % (0-9); NEUT # 6.8 x10^3uL (1.8-7.7); NEUT % 67 % (31-73); PLATELET COUNT 195 x10^3/uL (140-400); RED BLOOD COUNT 3.33 x10^6/uL (3.50-5.40); RED CELL DISTRIBUTION WIDTH 17.1 % (11.5-14.5); WHITE BLOOD COUNT 10.2 x10^3/uL (4.0-11.0)
[2018-01-04 06:32] LABS: CALCIUM 8.2 mg/dL (8.5-10.1); CREATININE 1.8 mg/dL (0.6-1.0); GFR 34.1; POTASSIUM 3.3 mmol/L (3.5-5.1)
--- NOTE | 2018-01-04 08:39 | RAD ---
Portable chest, 01/04/2018: HISTORY: Congestive heart failure, respiratory failure Comparison is made to yesterday's study. The ET tube and NG tube have been removed. A right jugular central venous catheter remains in place extending into the superior vena cava. The heart is enlarged. Pulmonary vascularity is congested with loss of vascular margination. There are moderate bilateral pulmonary infiltrates most compatible with pulmonary edema. A component of pneumonia cannot be excluded. Similar findings were present on yesterday's study. No new abnormality is seen. IMPRESSION: No significant change since yesterday's exam. Electronically signed by: Chester Cabrera MD (01/04/2018 8:35 AM) [facility]
[2018-01-04] MEDS ORDERED: FUROSEMIDE 40 MG/4 ML VIAL. IVP SCH ×2 (09:00)
[2018-01-04] MEDS: ANTI-COAG MONITOR BY PHARMACY. MC PRN (09:33)
[2018-01-04] MEDS ORDERED: POTASSIUM CHLORIDE 20MEQ 50 ML IV ONE (10:00)
--- NOTE | 2018-01-04 10:59 | PDOC ---
PULMONARY PROGRESS NOTES Subjective extubated 01/03 doing well used BIPAP last night Vitals Vital Signs Date Time Temp Pulse Resp B/P (MAP) Pulse Ox O2 Delivery O2 Flow Rate FiO2 01/04/18 10:00 70 16 140/78 (98) 94 Nasal Cannula 5.0 01/04/18 08:00 98.1 98.1 General: Alert, No acute distress Lungs: Other (decrease bs) Cardiovascular: S1 Abdomen: Soft, Other (obese) Extremities: Other (1+edema) Labs Laboratory Tests Test 01/02/18 11:17 01/02/18 11:20 01/02/18 15:46 01/02/18 18:16 Glucose (Fingerstick) 151 mg/dL (70-99) 149 mg/dL (70-99) Heparin Anti-Xa Act, Unfractionated 0.56 IU/mL (0.30-0.70) 0.89 IU/mL (0.30-0.70) Test 01/02/18 20:31 01/03/18 00:40 01/03/18 00:50 01/03/18 05:05 Glucose (Fingerstick) 224 mg/dL (70-99) 205 mg/dL (70-99) 160 mg/dL (70-99) Heparin Anti-Xa Act, Unfractionated 0.42 IU/mL (0.30-0.70) Test 01/03/18 06:20 01/03/18 08:43 01/03/18 09:00 01/03/18 12:30 White Blood Count 10.6 x10^3/uL (4.0-11.0) Red Blood Count 3.50 x10^6/uL (3.50-5.40) Hemoglobin 10.2 g/dL (12.0-15.5) Hematocrit 31.5 % (36.0-47.0) Mean Corpuscular Volume 90 fL (79-100) Mean Corpuscular Hemoglobin 29 pg (25-35) Mean Corpuscular Hemoglobin Concent 33 g/dL (31-37) Red Cell Distribution Width 17.1 % (11.5-14.5) Platelet Count 218 x10^3/uL (140-400) Neutrophils (%) (Auto) 71 % (31-73) Lymphocytes (%) (Auto) 15 % (24-48) Monocytes (%) (Auto) 14 % (0-9) Eosinophils (%) (Auto) 1 % (0-3) Basophils (%) (Auto) 0 % (0-3) Neutrophils # (Auto) 7.5 x10^3uL (1.8-7.7) Lymphocytes # (Auto) 1.5 x10^3/uL (1.0-4.8) Monocytes # (Auto) 1.5 x10^3/uL (0.0-1.1) Eosinophils # (Auto) 0.1 x10^3/uL (0.0-0.7) Basophils # (Auto) 0.0 x10^3/uL (0.0-0.2) Heparin Anti-Xa Act, Unfractionated 0.37 IU/mL (0.30-0.70) 0.34 IU/mL (0.30-0.70) Sodium Level 142 mmol/L (136-145) Potassium Level 3.6 mmol/L (3.5-5.1) Chloride Level 105 mmol/L (98-107) Carbon Dioxide Level 28 mmol/L (21-32) Anion Gap 9 (6-14) Blood Urea Nitrogen 16 mg/dL (7-20) Creatinine 1.9 mg/dL (0.6-1.0) Estimated GFR (Cockcroft-Gault) 32.0 Glucose Level 171 mg/dL (70-99) Calcium Level 7.7 mg/dL (8.5-10.1) Magnesium Level 1.8 mg/dL (1.8-2.4) Triglycerides Level 154 mg/dL (0-150) Cholesterol Level 182 mg/dL (0-200) LDL Cholesterol, Calculated 110 mg/dL (0-100) VLDL Cholesterol, Calculated 31 mg/dL (0-40) Non-HDL Cholesterol Calculated 141 mg/dL (0-129) HDL Cholesterol 41 mg/dL (40-60) Cholesterol/HDL Ratio 4.4 Glucose (Fingerstick) 165 mg/dL (70-99) O2 Saturation 98 % (92-99) Arterial Blood pH 7.46 (7.35-7.45) Arterial Blood pCO2 at Patient Temp 36 mmHg (35-46) Arterial Blood pO2 at Patient Temp 118 mmHg (65-108) Arterial Blood HCO3 25 mmol/L (21-28) Arterial Blood Base Excess 1 mmol/L (-3-3) FiO2 50 Test 01/03/18 12:40 01/03/18 14:15 01/04/18 00:23 01/04/18 06:00 Glucose (Fingerstick) 180 mg/dL (70-99) 129 mg/dL (70-99) O2 Saturation 97 % (92-99) Arterial Blood pH 7.39 (7.35-7.45) Arterial Blood pCO2 at Patient Temp 44 mmHg (35-46) Arterial Blood pO2 at Patient Temp 94 mmHg (65-108) Arterial Blood HCO3 26 mmol/L (21-28) Arterial Blood Base Excess 1 mmol/L (-3-3) FiO2 40 White Blood Count 10.2 x10^3/uL (4.0-11.0) Red Blood Count 3.33 x10^6/uL (3.50-5.40) Hemoglobin 9.9 g/dL (12.0-15.5) Hematocrit 29.8 % (36.0-47.0) Mean Corpuscular Volume 90 fL (79-100) Mean Corpuscular Hemoglobin 30 pg (25-35) Mean Corpuscular Hemoglobin Concent 33 g/dL (31-37) Red Cell Distribution Width 17.1 % (11.5-14.5) Platelet Count 195 x10^3/uL (140-400) Neutrophils (%) (Auto) 67 % (31-73) Lymphocytes (%) (Auto) 16 % (24-48) Monocytes (%) (Auto) 14 % (0-9) Eosinophils (%) (Auto) 2 % (0-3) Basophils (%) (Auto) 1 % (0-3) Neutrophils # (Auto) 6.8 x10^3uL (1.8-7.7) Lymphocytes # (Auto) 1.7 x10^3/uL (1.0-4.8) Monocytes # (Auto) 1.5 x10^3/uL (0.0-1.1) Eosinophils # (Auto) 0.2 x10^3/uL (0.0-0.7) Basophils # (Auto) 0.1 x10^3/uL (0.0-0.2) Heparin Anti-Xa Act, Unfractionated 0.28 IU/mL (0.30-0.70) Sodium Level 144 mmol/L (136-145) Potassium Level 3.3 mmol/L (3.5-5.1) Chloride Level 106 mmol/L (98-107) Carbon Dioxide Level 30 mmol/L (21-32) Anion Gap 8 (6-14) Blood Urea Nitrogen 18 mg/dL (7-20) Creatinine 1.8 mg/dL (0.6-1.0) Estimated GFR (Cockcroft-Gault) 34.1 Glucose Level 130 mg/dL (70-99) Calcium Level 8.2 mg/dL (8.5-10.1) Test 01/04/18 06:03 Glucose (Fingerstick) 115 mg/dL (70-99) Laboratory Tests Test 01/03/18 12:30 01/03/18 12:40 01/03/18 14:15 01/04/18 00:23 Heparin Anti-Xa Act, Unfractionated 0.34 IU/mL (0.30-0.70) Glucose (Fingerstick) 180 mg/dL (70-99) 129 mg/dL (70-99) O2 Saturation 97 % (92-99) Arterial Blood pH 7.39 (7.35-7.45) Arterial Blood pCO2 at Patient Temp 44 mmHg (35-46) Arterial Blood pO2 at Patient Temp 94 mmHg (65-108) Arterial Blood HCO3 26 mmol/L (21-28) Arterial Blood Base Excess 1 mmol/L (-3-3) FiO2 40 Test 01/04/18 06:00 01/04/18 06:03 White Blood Count 10.2 x10^3/uL (4.0-11.0) Red Blood Count 3.33 x10^6/uL (3.50-5.40) Hemoglobin 9.9 g/dL (12.0-15.5) Hematocrit 29.8 % (36.0-47.0) Mean Corpuscular Volume 90 fL (79-100) Mean Corpuscular Hemoglobin 30 pg (25-35) Mean Corpuscular Hemoglobin Concent 33 g/dL (31-37) Red Cell Distribution Width 17.1 % (11.5-14.5) Platelet Count 195 x10^3/uL (140-400) Neutrophils (%) (Auto) 67 % (31-73) Lymphocytes (%) (Auto) 16 % (24-48) Monocytes (%) (Auto) 14 % (0-9) Eosinophils (%) (Auto) 2 % (0-3) Basophils (%) (Auto) 1 % (0-3) Neutrophils # (Auto) 6.8 x10^3uL (1.8-7.7) Lymphocytes # (Auto) 1.7 x10^3/uL (1.0-4.8) Monocytes # (Auto) 1.5 x10^3/uL (0.0-1.1) Eosinophils # (Auto) 0.2 x10^3/uL (0.0-0.7) Basophils # (Auto) 0.1 x10^3/uL (0.0-0.2) Heparin Anti-Xa Act, Unfractionated 0.28 IU/mL (0.30-0.70) Sodium Level 144 mmol/L (136-145) Potassium Level 3.3 mmol/L (3.5-5.1) Chloride Level 106 mmol/L (98-107) Carbon Dioxide Level 30 mmol/L (21-32) Anion Gap 8 (6-14) Blood Urea Nitrogen 18 mg/dL (7-20) Creatinine 1.8 mg/dL (0.6-1.0) Estimated GFR (Cockcroft-Gault) 34.1 Glucose Level 130 mg/dL (70-99) Calcium Level 8.2 mg/dL (8.5-10.1) Glucose (Fingerstick) 115 mg/dL (70-99) Medications Active Scripts Medications Dose Route/Sig Max Daily Dose Days Date Category Lantus (Insulin Glargine,Hum.rec.anlog) 100 Unit/1 Ml Vial 1 Unit SQ 01/02/18 Reported Novolog Flexpen (Insulin Aspart) 100 Unit/1 Ml Insuln.pen 1 Unit SQ 01/02/18 Reported Protonix (Pantoprazole Sodium) 40 Mg Granpkt.dr 40 Mg PO DAILY 01/02/18 Reported Bidil Tablet (Isosorb Dinit/Hydralazine Hcl) 1 Each Tablet 1 Each PO TID 01/02/18 Reported Carvedilol 25 Mg Tablet 25 Mg PO BIDWMEALS 01/02/18 Reported Amlodipine Besylate 5 Mg Tablet 5 Mg PO DAILY 01/02/18 Reported Entresto 49 mg-51 mg Tablet (Sacubitril/Valsartan) 1 Each Tablet 1 Each PO BID 01/02/18 Reported Fluoxetine Hcl 40 Mg Capsule 1 Cap PO DAILY 01/02/18 Reported NITROGLYCERIN SubLingual (Nitroglycerin) 0.4 Mg Tab.subl 0.4 Mg SL PRN Q5MIN PRN 01/02/18 Reported Clopidogrel (Clopidogrel Bisulfate) 75 Mg Tablet 1 Tab PO DAILY 01/02/18 Reported Potassium Chloride 20 Meq Tablet.er 20 Meq PO DAILY 01/02/18 Reported Furosemide 80 Mg Tablet 1 Tab PO BID 01/02/18 Reported Atorvastatin Calcium 40 Mg Tablet 1 Tab PO QHS 01/02/18 Reported Comments CXR unchanged infiltrates Impression . 1. Fcnls-[id number] hypoxic and hypercapnic respiratory failure secondary to non-ST segment myocardial infarction and acute congestive heart failure. Underlying chronic obstructive pulmonary disease may have contributed to the symptoms. extubated 01/03 2. possible pneumonia, 3. Abnormal chest x-ray with bilateral infiltrates, more on the right than on the left, likely related to pulmonary edema. She has a large cardiac silhouette as well. Cannot exclude underlying Pneumonia. 4. Suspected underlying chronic obstructive pulmonary disease. 5. Underlying obstructive sleep apnea with suspected obesity hypoventilation syndrome. 6. Acute kidney injury. 7. Moderate protein-calorie malnutrition, with an albumin level of 2.7. 8. Increasing troponin/ NSTMI 9. 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 1. Continue with present nasal canula 2. Diuresis. 3. empiric antibiotic. 4. Follow Cardiology recommendation regarding the need for cardiac catheterization.EF 30% 5. echocardiogram.reviewed 6. Follow chest x-rays. 7. Continue heparin per Cardiology recommendation. 8. PPI for stress ulcer prophylaxis.awaiting speech eval 9. Discussed with the patient's family, RN and RT. MARY MATSON MD Jan 04, 2018 10:59
--- NOTE | 2018-01-04 11:01 | PDOC ---
ROBINJOSE RAMON GARAY [employer]AP [employer]ORTER 01/04/18 1101: CARDIO Progress Notes Date and Time Date of Service 01/04/2018 Time of Evaluation 1052 Subjective Subjective: No Chest Pain, No shortness of breath, No Palpitations, No Dizziness Vitals Vitals Vital Signs Date Time Temp Pulse Resp B/P (MAP) Pulse Ox O2 Delivery O2 Flow Rate FiO2 01/04/18 10:00 70 16 140/78 (98) 94 Nasal Cannula 5.0 01/04/18 08:00 98.1 98.1 Weight Weight [ ] Input and Output Intake and Output Intake and Output 01/04/18 07:00 Intake Total 1562 ml Output Total 2280 ml Balance -718 ml Intake Oral 0 ml IV Total 795 ml Tube Feeding 720 ml Other 47 ml Output Urine Total 2280 ml Gastric Drainage Total 0 ml Laboratory Labs Laboratory Tests Test 01/03/18 12:30 01/03/18 12:40 01/03/18 14:15 01/04/18 00:23 Heparin Anti-Xa Act, Unfractionated 0.34 IU/mL (0.30-0.70) Glucose (Fingerstick) 180 mg/dL (70-99) 129 mg/dL (70-99) O2 Saturation 97 % (92-99) Arterial Blood pH 7.39 (7.35-7.45) Arterial Blood pCO2 at Patient Temp 44 mmHg (35-46) Arterial Blood pO2 at Patient Temp 94 mmHg (65-108) Arterial Blood HCO3 26 mmol/L (21-28) Arterial Blood Base Excess 1 mmol/L (-3-3) FiO2 40 Test 01/04/18 06:00 01/04/18 06:03 White Blood Count 10.2 x10^3/uL (4.0-11.0) Red Blood Count 3.33 x10^6/uL (3.50-5.40) Hemoglobin 9.9 g/dL (12.0-15.5) Hematocrit 29.8 % (36.0-47.0) Mean Corpuscular Volume 90 fL (79-100) Mean Corpuscular Hemoglobin 30 pg (25-35) Mean Corpuscular Hemoglobin Concent 33 g/dL (31-37) Red Cell Distribution Width 17.1 % (11.5-14.5) Platelet Count 195 x10^3/uL (140-400) Neutrophils (%) (Auto) 67 % (31-73) Lymphocytes (%) (Auto) 16 % (24-48) Monocytes (%) (Auto) 14 % (0-9) Eosinophils (%) (Auto) 2 % (0-3) Basophils (%) (Auto) 1 % (0-3) Neutrophils # (Auto) 6.8 x10^3uL (1.8-7.7) Lymphocytes # (Auto) 1.7 x10^3/uL (1.0-4.8) Monocytes # (Auto) 1.5 x10^3/uL (0.0-1.1) Eosinophils # (Auto) 0.2 x10^3/uL (0.0-0.7) Basophils # (Auto) 0.1 x10^3/uL (0.0-0.2) Heparin Anti-Xa Act, Unfractionated 0.28 IU/mL (0.30-0.70) Sodium Level 144 mmol/L (136-145) Potassium Level 3.3 mmol/L (3.5-5.1) Chloride Level 106 mmol/L (98-107) Carbon Dioxide Level 30 mmol/L (21-32) Anion Gap 8 (6-14) Blood Urea Nitrogen 18 mg/dL (7-20) Creatinine 1.8 mg/dL (0.6-1.0) Estimated GFR (Cockcroft-Gault) 34.1 Glucose Level 130 mg/dL (70-99) Calcium Level 8.2 mg/dL (8.5-10.1) Glucose (Fingerstick) 115 mg/dL (70-99) Microbiology Micro Microbiology 01/02/18 Blood Culture - Preliminary, Resulted NO GROWTH AFTER 2 DAYS 01/01/18 Urine Culture - Preliminary, Resulted 01/01/18 Urine Culture Result 1 (EDU) - Preliminary, Resulted Case Discussion Case Discussed with: Family (daughter and son) Physical Exam HEENT: Neck Supple W Full Motion Chest: Symmetric LUNGS: Other (coarse) Heart: RRR, other (heart tones distant) Abdomen: Soft N/T, Other (obese abdomen) Extremities: No Edema Neurology: alert, oriented, follow commands Assessment Assessment 1. sepsis --WBC decreased 2. NSTEMI --? demand mediated in setting of acute resp failure -- has been extubated --continue heparin gtt; convert BB to oral --TTE with LVEF of 30%; not new according to daughter and has been about 20% ; previous PCI/stents - usually seen at --consider further ischemic evaluation when stabilizes; patient thinks she has had a cath done in the last year @ ----she may exceed the weight limit for cath here Review of records: KNOWN CAD WITH STENTS TO CIRC IN 1996; 1ST DIAGONAL IN 2005; CATH 2014 @ [facility]: DIFFUSE INSTENT RESTENOSIS OF LAD - 50%; INSTENT RESTENOSIS OF CIRC - 40%; SEVERE DISEASE OF OM WITH 80-90% - NO INTERVENTION; CATH 01/2015 FOR NSTEMI - 80-90% CIRC; OM1 -990% FOCAL; RCA MILD 30% DISEASE ; UNSUCCESSFUL ATTEMPT TO CRITICAL CARE TRANSPORT NURSE CIRC.; PCI 12/2015 - CIRCUMFLEX; LVEF ~ 20% 12/2015 --HISTORY OF PAROXYSMAL VENTRICULAR TACHYCARDIA 3. acute CHF, SYSTOLIC WITH DIASTOLIC, NYHA CLASS IV PER RECORDS --concur with diuretics;change to BID as CR stable --control BP --LVEF ~ 30% PER RECORDS 4. DM, II --per primary service 5. morbid obesity, BMI > 68 --PREVIOUS WEIGHT OF 980 POUNDS; HAD BARIATRIC SURGERY AND DECREASED TO 425# --OBESITY HYPOVENTILATION SYNDROME WITH OBSTRUCTIVE SLEEP APNEA TREATED WITH CPAP AND CHRONIC RESPIRATORY FAILURE WITH O2 OF 4 LPM AT HOME 6. HLD --start statin therapy 7. CKD, STAGE III -IV RECORDS FROM REVIEWED @ 1500 WITH UPDATES IN BLUE. JIMY PARKER MD 01/04/18 1621: CARDIO Progress Notes Assessment Assessment Patient seen and examined. Agree with [employer]'s assessment and plan. Records from [facility] reviewed. Acute on chronic systolic heart failure better compensated. Patient extubated yesterday. Pulmonary team following. Continue diuretics and empiric antibiotics. Follow-up with heart failure team after discharge. JOSE RAMON JACKSON APRN Jan 04, 2018 11:01 JIMY PARKER MD Jan 04, 2018 16:21
[2018-01-04] MEDS ORDERED: DEXTROSE 50% 25 GM / 50ML DISP.SYRIN. IV PRN (11:45)
[2018-01-04] MEDS: CLOPIDOGREL BISULFATE 75 MG TABLET PO SCH ×2 (11:50→16:37)
[2018-01-04] MEDS: PANTOPRAZOLE 40 MG TABLET.DR. PO SCH ×2 (11:51→12:00)
[2018-01-04] MEDS: POTASSIUM CHLORIDE 20 MEQ TABLET.ER. PO SCH (12:00)
[2018-01-04] MEDS: FLUoxetine HCL 20 MG CAPSULE PO SCH (12:00)
--- NOTE | 2018-01-04 12:55 | PDOC ---
PROGRESS NOTES Chief Complaint Chief Complaint acute hypoxic resap failure with CHF ACUTE systolic CHF exacerbation EF 30% copd possible bl PNA ckd3 dm2 htn Severe morbid obesity NSTEMI plan: fu with card , pulm ICU care intubated, sedated passed swallow eval, resume some home meds cont lasix iv 40mg bid intake and output monitor, BP ok, monitor urine output on heparin drip, may need cath soon cont levaquin, duoneb gi ppx ssi ptot CXR daily talked to nurse History of Present Illness History of Present Illness ROS: no fever, chills, extubated 01/04, on NC 3L CXR slightly better, still bl infiltrates Vitals Vitals Vital Signs Date Time Temp Pulse Resp B/P (MAP) Pulse Ox O2 Delivery O2 Flow Rate FiO2 01/04/18 10:00 70 16 140/78 (98) 94 Nasal Cannula 5.0 01/04/18 08:00 98.1 98.1 Physical Exam Physical Exam General: Other (sedated) Heart: Regular rate, Normal S1, Normal S2, Other (heart tones distant and difficult to auscultate) Lungs: Other (decrease bs) Abdomen: Other (obese abdomen) Extremities: No edema Skin: No rashes Labs LABS Laboratory Tests Test 01/03/18 14:15 01/04/18 00:23 01/04/18 06:00 01/04/18 06:03 O2 Saturation 97 % (92-99) Arterial Blood pH 7.39 (7.35-7.45) Arterial Blood pCO2 at Patient Temp 44 mmHg (35-46) Arterial Blood pO2 at Patient Temp 94 mmHg (65-108) Arterial Blood HCO3 26 mmol/L (21-28) Arterial Blood Base Excess 1 mmol/L (-3-3) FiO2 40 Glucose (Fingerstick) 129 mg/dL (70-99) 115 mg/dL (70-99) White Blood Count 10.2 x10^3/uL (4.0-11.0) Red Blood Count 3.33 x10^6/uL (3.50-5.40) Hemoglobin 9.9 g/dL (12.0-15.5) Hematocrit 29.8 % (36.0-47.0) Mean Corpuscular Volume 90 fL (79-100) Mean Corpuscular Hemoglobin 30 pg (25-35) Mean Corpuscular Hemoglobin Concent 33 g/dL (31-37) Red Cell Distribution Width 17.1 % (11.5-14.5) Platelet Count 195 x10^3/uL (140-400) Neutrophils (%) (Auto) 67 % (31-73) Lymphocytes (%) (Auto) 16 % (24-48) Monocytes (%) (Auto) 14 % (0-9) Eosinophils (%) (Auto) 2 % (0-3) Basophils (%) (Auto) 1 % (0-3) Neutrophils # (Auto) 6.8 x10^3uL (1.8-7.7) Lymphocytes # (Auto) 1.7 x10^3/uL (1.0-4.8) Monocytes # (Auto) 1.5 x10^3/uL (0.0-1.1) Eosinophils # (Auto) 0.2 x10^3/uL (0.0-0.7) Basophils # (Auto) 0.1 x10^3/uL (0.0-0.2) Heparin Anti-Xa Act, Unfractionated 0.28 IU/mL (0.30-0.70) Sodium Level 144 mmol/L (136-145) Potassium Level 3.3 mmol/L (3.5-5.1) Chloride Level 106 mmol/L (98-107) Carbon Dioxide Level 30 mmol/L (21-32) Anion Gap 8 (6-14) Blood Urea Nitrogen 18 mg/dL (7-20) Creatinine 1.8 mg/dL (0.6-1.0) Estimated GFR (Cockcroft-Gault) 34.1 Glucose Level 130 mg/dL (70-99) Calcium Level 8.2 mg/dL (8.5-10.1) Test 01/04/18 11:45 01/04/18 12:28 Heparin Anti-Xa Act, Unfractionated 0.43 IU/mL (0.30-0.70) Glucose (Fingerstick) 139 mg/dL (70-99) Assessment and Plan Assessmemt and Plan Problems Medical Problems: (1) Hyperglycemia Status: Acute (2) Hypoxia Status: Acute (3) Renal insufficiency Status: Acute (4) Respiratory failure Status: Acute (5) Septic shock Status: Acute (6) UTI (urinary tract infection) Status: Acute Comment Review of Relevant I have reviewed the following items linden (where applicable) has been applied. Labs Laboratory Tests Test 01/02/18 15:46 01/02/18 18:16 01/02/18 20:31 01/03/18 00:40 Glucose (Fingerstick) 149 mg/dL (70-99) 224 mg/dL (70-99) Heparin Anti-Xa Act, Unfractionated 0.89 IU/mL (0.30-0.70) 0.42 IU/mL (0.30-0.70) Test 01/03/18 00:50 01/03/18 05:05 01/03/18 06:20 01/03/18 08:43 Glucose (Fingerstick) 205 mg/dL (70-99) 160 mg/dL (70-99) 165 mg/dL (70-99) White Blood Count 10.6 x10^3/uL (4.0-11.0) Red Blood Count 3.50 x10^6/uL (3.50-5.40) Hemoglobin 10.2 g/dL (12.0-15.5) Hematocrit 31.5 % (36.0-47.0) Mean Corpuscular Volume 90 fL (79-100) Mean Corpuscular Hemoglobin 29 pg (25-35) Mean Corpuscular Hemoglobin Concent 33 g/dL (31-37) Red Cell Distribution Width 17.1 % (11.5-14.5) Platelet Count 218 x10^3/uL (140-400) Neutrophils (%) (Auto) 71 % (31-73) Lymphocytes (%) (Auto) 15 % (24-48) Monocytes (%) (Auto) 14 % (0-9) Eosinophils (%) (Auto) 1 % (0-3) Basophils (%) (Auto) 0 % (0-3) Neutrophils # (Auto) 7.5 x10^3uL (1.8-7.7) Lymphocytes # (Auto) 1.5 x10^3/uL (1.0-4.8) Monocytes # (Auto) 1.5 x10^3/uL (0.0-1.1) Eosinophils # (Auto) 0.1 x10^3/uL (0.0-0.7) Basophils # (Auto) 0.0 x10^3/uL (0.0-0.2) Heparin Anti-Xa Act, Unfractionated 0.37 IU/mL (0.30-0.70) Sodium Level 142 mmol/L (136-145) Potassium Level 3.6 mmol/L (3.5-5.1) Chloride Level 105 mmol/L (98-107) Carbon Dioxide Level 28 mmol/L (21-32) Anion Gap 9 (6-14) Blood Urea Nitrogen 16 mg/dL (7-20) Creatinine 1.9 mg/dL (0.6-1.0) Estimated GFR (Cockcroft-Gault) 32.0 Glucose Level 171 mg/dL (70-99) Calcium Level 7.7 mg/dL (8.5-10.1) Magnesium Level 1.8 mg/dL (1.8-2.4) Triglycerides Level 154 mg/dL (0-150) Cholesterol Level 182 mg/dL (0-200) LDL Cholesterol, Calculated 110 mg/dL (0-100) VLDL Cholesterol, Calculated 31 mg/dL (0-40) Non-HDL Cholesterol Calculated 141 mg/dL (0-129) HDL Cholesterol 41 mg/dL (40-60) Cholesterol/HDL Ratio 4.4 Test 01/03/18 09:00 01/03/18 12:30 01/03/18 12:40 01/03/18 14:15 O2 Saturation 98 % (92-99) 97 % (92-99) Arterial Blood pH 7.46 (7.35-7.45) 7.39 (7.35-7.45) Arterial Blood pCO2 at Patient Temp 36 mmHg (35-46) 44 mmHg (35-46) Arterial Blood pO2 at Patient Temp 118 mmHg (65-108) 94 mmHg (65-108) Arterial Blood HCO3 25 mmol/L (21-28) 26 mmol/L (21-28) Arterial Blood Base Excess 1 mmol/L (-3-3) 1 mmol/L (-3-3) FiO2 50 40 Heparin Anti-Xa Act, Unfractionated 0.34 IU/mL (0.30-0.70) Glucose (Fingerstick) 180 mg/dL (70-99) Test 01/04/18 00:23 01/04/18 06:00 01/04/18 06:03 01/04/18 11:45 Glucose (Fingerstick) 129 mg/dL (70-99) 115 mg/dL (70-99) White Blood Count 10.2 x10^3/uL (4.0-11.0) Red Blood Count 3.33 x10^6/uL (3.50-5.40) Hemoglobin 9.9 g/dL (12.0-15.5) Hematocrit 29.8 % (36.0-47.0) Mean Corpuscular Volume 90 fL (79-100) Mean Corpuscular Hemoglobin 30 pg (25-35) Mean Corpuscular Hemoglobin Concent 33 g/dL (31-37) Red Cell Distribution Width 17.1 % (11.5-14.5) Platelet Count 195 x10^3/uL (140-400) Neutrophils (%) (Auto) 67 % (31-73) Lymphocytes (%) (Auto) 16 % (24-48) Monocytes (%) (Auto) 14 % (0-9) Eosinophils (%) (Auto) 2 % (0-3) Basophils (%) (Auto) 1 % (0-3) Neutrophils # (Auto) 6.8 x10^3uL (1.8-7.7) Lymphocytes # (Auto) 1.7 x10^3/uL (1.0-4.8) Monocytes # (Auto) 1.5 x10^3/uL (0.0-1.1) Eosinophils # (Auto) 0.2 x10^3/uL (0.0-0.7) Basophils # (Auto) 0.1 x10^3/uL (0.0-0.2) Heparin Anti-Xa Act, Unfractionated 0.28 IU/mL (0.30-0.70) 0.43 IU/mL (0.30-0.70) Sodium Level 144 mmol/L (136-145) Potassium Level 3.3 mmol/L (3.5-5.1) Chloride Level 106 mmol/L (98-107) Carbon Dioxide Level 30 mmol/L (21-32) Anion Gap 8 (6-14) Blood Urea Nitrogen 18 mg/dL (7-20) Creatinine 1.8 mg/dL (0.6-1.0) Estimated GFR (Cockcroft-Gault) 34.1 Glucose Level 130 mg/dL (70-99) Calcium Level 8.2 mg/dL (8.5-10.1) Test 01/04/18 12:28 Glucose (Fingerstick) 139 mg/dL (70-99) Laboratory Tests Test 01/03/18 14:15 01/04/18 00:23 01/04/18 06:00 01/04/18 06:03 O2 Saturation 97 % (92-99) Arterial Blood pH 7.39 (7.35-7.45) Arterial Blood pCO2 at Patient Temp 44 mmHg (35-46) Arterial Blood pO2 at Patient Temp 94 mmHg (65-108) Arterial Blood HCO3 26 mmol/L (21-28) Arterial Blood Base Excess 1 mmol/L (-3-3) FiO2 40 Glucose (Fingerstick) 129 mg/dL (70-99) 115 mg/dL (70-99) White Blood Count 10.2 x10^3/uL (4.0-11.0) Red Blood Count 3.33 x10^6/uL (3.50-5.40) Hemoglobin 9.9 g/dL (12.0-15.5) Hematocrit 29.8 % (36.0-47.0) Mean Corpuscular Volume 90 fL (79-100) Mean Corpuscular Hemoglobin 30 pg (25-35) Mean Corpuscular Hemoglobin Concent 33 g/dL (31-37) Red Cell Distribution Width 17.1 % (11.5-14.5) Platelet Count 195 x10^3/uL (140-400) Neutrophils (%) (Auto) 67 % (31-73) Lymphocytes (%) (Auto) 16 % (24-48) Monocytes (%) (Auto) 14 % (0-9) Eosinophils (%) (Auto) 2 % (0-3) Basophils (%) (Auto) 1 % (0-3) Neutrophils # (Auto) 6.8 x10^3uL (1.8-7.7) Lymphocytes # (Auto) 1.7 x10^3/uL (1.0-4.8) Monocytes # (Auto) 1.5 x10^3/uL (0.0-1.1) Eosinophils # (Auto) 0.2 x10^3/uL (0.0-0.7) Basophils # (Auto) 0.1 x10^3/uL (0.0-0.2) Heparin Anti-Xa Act, Unfractionated 0.28 IU/mL (0.30-0.70) Sodium Level 144 mmol/L (136-145) Potassium Level 3.3 mmol/L (3.5-5.1) Chloride Level 106 mmol/L (98-107) Carbon Dioxide Level 30 mmol/L (21-32) Anion Gap 8 (6-14) Blood Urea Nitrogen 18 mg/dL (7-20) Creatinine 1.8 mg/dL (0.6-1.0) Estimated GFR (Cockcroft-Gault) 34.1 Glucose Level 130 mg/dL (70-99) Calcium Level 8.2 mg/dL (8.5-10.1) Test 01/04/18 11:45 01/04/18 12:28 Heparin Anti-Xa Act, Unfractionated 0.43 IU/mL (0.30-0.70) Glucose (Fingerstick) 139 mg/dL (70-99) Microbiology 01/02/18 Blood Culture - Preliminary, Resulted NO GROWTH AFTER 2 DAYS 01/01/18 Urine Culture - Preliminary, Resulted 01/01/18 Urine Culture Result 1 (EDU) - Preliminary, Resulted Medications Current Medications Propofol 100 ml @ 0 mls/hr CONT PRN IV PER PROTOCOL Last administered on at 12:14; Start 01/01/18 at 23:00; Stop 01/03/18 at 15:38; Status DC Fentanyl Citrate (Fentanyl 2ml Vial) 25 mcg PRN Q1HR PRN IV MILD PAIN; Start at 23:00 Fentanyl Citrate (Fentanyl 2ml Vial) 50 mcg PRN Q1HR PRN IV MOD TO SEVERE PAIN Last administered on 01/01/18at 23:57; Start 01/01/18 at 23:00 Chlorhexidine Gluconate (Peridex) 15 ml BID MM Last administered on 01/03/18at 08:57; Start 01/02/18 at 09:00; Stop 01/03/18 at 17:45; Status DC Aztreonam 2 gm/ Dextrose 100 ml @ 200 mls/hr 1X ONCE IV Last administered on 01/02/18at 00:23; Start 01/01/18 at 23:30; Stop 01/01/18 at 23:59; Status DC Vancomycin HCl 2 gm/Sodium Chloride 500 ml @ 250 mls/hr 1X ONCE IV Last administered on 01/02/18at 01:13; Start 01/02/18 at 01:30; Stop 01/02/18 at 03:29 ; Status DC Levofloxacin/ Dextrose 100 ml @ 100 mls/hr 1X ONCE IV Last administered on at 23:56; Start 01/01/18 at 23:30; Stop 01/02/18 at 00:29; Status DC Propofol 50 ml @ As Directed STK-MED ONCE IV ; Start 01/01/18 at 23:16; Stop at 23:17; Status DC Lidocaine/ Epinephrine (LIDOCAINE 1%-EPI 1:100,000 Multi-Dose) 20 ml STK-MED ONCE .ROUTE ; Start 01/01/18 at 23:40; Stop 01/01/18 at 23:41; Status DC Propofol 50 ml @ As Directed STK-MED ONCE IV ; Start 01/01/18 at 23:50; Stop at 23:51; Status DC Sodium Chloride 1,000 ml @ 1,000 mls/hr 1X ONCE IV Last administered on at 00:00; Start 01/02/18 at 01:00; Stop 01/02/18 at 01:59; Status DC Sodium Chloride 1,000 ml @ 1,000 mls/hr 1X ONCE IV Last administered on at 01:12; Start 01/02/18 at 01:00; Stop 01/02/18 at 01:59; Status DC Ondansetron HCl (Zofran) 4 mg PRN Q8HRS PRN IV NAUSEA/VOMITING 1ST CHOICE; Start 01/02/18 at 01:30; Stop 01/03/18 at 01:29; Status DC Insulin Human Lispro (HumaLOG) 0-5 UNITS TIDWMEALS SQ ; Start 01/02/18 at 08:00 ; Stop 01/02/18 at 11:03; Status DC Dextrose (Dextrose 50%-Water Syringe) 12.5 gm PRN Q15MIN PRN IV SEE COMMENTS; Start 01/02/18 at 01:30; Status Cancel Heparin Sodium/ Dextrose 500 ml @ 0 mls/hr CONT PRN IV SEE I/O RECORD Last administered on 01/03/18at 23:16; Start 01/02/18 at 05:45 Heparin Sodium (Porcine) (Heparin Sodium) 5,100 unit PRN Q6HRS PRN IV FOR UFH LEVEL LESS THAN 0.2; Start 01/02/18 at 05:45 Info (Anti-Coagulation Monitoring By Pharmacy) 1 each PRN DAILY PRN MC SEE COMMENTS Last administered on 01/04/18at 09:33; Start 01/02/18 at 05:45 Etomidate (Amidate) 20 mg 1X ONCE IV Last administered on 01/01/18at 22:31; Start 01/02/18 at 06:00; Stop 01/02/18 at 06:01; Status DC Rocuronium Greer (Zemuron) 50 mg 1X ONCE IV Last administered on 01/01/18at 22:31; Start 01/02/18 at 06:00; Stop 01/02/18 at 06:01; Status DC Enalaprilat (Vasotec Inj) 2.5 mg PRN Q6HRS PRN IVP HYPERTENSION, SEE COMMENTS Last administered on 01/03/18at 14:36; Start 01/02/18 at 09:00 Metoprolol Tartrate (Lopressor Vial) 5 mg PRN Q6HRS PRN IVP HYPERTENSION, SEE COMMENTS; Start 01/02/18 at 10:30; Stop 01/02/18 at 10:59; Status DC Famotidine (Pepcid Vial) 20 mg QHS IVP Last administered on 01/04/18at 00:14; Start 01/02/18 at 21:00; Stop 01/04/18 at 11:42; Status DC Furosemide (Lasix) 60 mg 1X ONCE IVP Last administered on 01/02/18at 11:18; Start 01/02/18 at 11:30; Stop 01/02/18 at 11:31; Status DC Levofloxacin/ Dextrose 100 ml @ 100 mls/hr Q24H IV Last administered on at 23:13; Start 01/02/18 at 23:00 Metoprolol Tartrate (Lopressor Vial) 5 mg Q6HRS IVP Last administered on at 06:02; Start 01/02/18 at 12:00; Stop 01/04/18 at 10:58; Status DC Insulin Human Lispro (HumaLOG) 0-5 UNITS Q4HRS SQ Last administered on at 12:42; Start 01/02/18 at 12:00; Stop 01/04/18 at 11:42; Status DC Furosemide (Lasix) 60 mg 1X ONCE IVP Last administered on 01/03/18at 08:57; Start 01/03/18 at 09:00; Stop 01/03/18 at 09:01; Status DC Furosemide (Lasix) 40 mg [id number] IVP ; Start 01/04/18 at 09:00; Stop 01/04/18 at 09:00; Status DC Atorvastatin Calcium (Lipitor) 40 mg QHS PO ; Start 01/03/18 at 21:00 Furosemide (Lasix) 40 mg DAILY IVP Last administered on 01/04/18at 09:21; Start 01/04/18 at 09:00; Stop 01/04/18 at 10:58; Status DC Nystatin (Nystop) 1 charu BID TP Last administered on 01/04/18at 09:21; Start at 21:00 Potassium Chloride/Water 50 ml @ 50 mls/hr 1X ONCE IV Last administered on at 09:20; Start 01/04/18 at 10:00; Stop 01/04/18 at 10:59; Status DC Furosemide (Lasix) 40 mg BID92 IVP ; Start 01/04/18 at 14:00 Carvedilol (Coreg) 25 mg BIDWMEALS PO ; Start 01/04/18 at 17:00 Atorvastatin Calcium (Lipitor) 40 mg QHS PO ; Start 01/04/18 at 21:00; Status Cancel Clopidogrel Bisulfate (Plavix) 75 mg DAILY PO ; Start 01/04/18 at 12:00 Carvedilol (Coreg) 25 mg BIDWMEALS PO ; Start 01/04/18 at 17:00; Status Cancel Fluoxetine HCl (PROzac) 40 mg DAILY PO ; Start 01/04/18 at 12:00 Pantoprazole Sodium (Protonix) 40 mg DAILYAC PO ; Start 01/04/18 at 12:00 Potassium Chloride (Klor-Con) 20 meq DAILYWBKFT PO ; Start 01/04/18 at 12:00 Non-Formulary Medication (Sacubitril/ Valsartan (Entresto 49 mg-51 mg Tablet)) 1 each BID PO ; Start 01/04/18 at 21:00; Stop 01/04/18 at 21:00; Status DC Insulin Human Lispro (HumaLOG) 0-9 UNITS TIDWMEALS SQ ; Start 01/04/18 at 12:00 Dextrose (Dextrose 50%-Water Syringe) 12.5 gm PRN Q15MIN PRN IV SEE COMMENTS; Start 01/04/18 at 11:45 Active Scripts Active Reported Lantus (Insulin Glargine,Hum.rec.anlog) 100 Unit/1 Ml Vial 1 Unit SQ Novolog Flexpen (Insulin Aspart) 100 Unit/1 Ml Insuln.pen 1 Unit SQ Protonix (Pantoprazole Sodium) 40 Mg Granpkt.dr 40 Mg PO DAILY Bidil Tablet (Isosorb Dinit/Hydralazine Hcl) 1 Each Tablet 1 Each PO TID Carvedilol 25 Mg Tablet 25 Mg PO BIDWMEALS Amlodipine Besylate 5 Mg Tablet 5 Mg PO DAILY Entresto 49 mg-51 mg Tablet (Sacubitril/Valsartan) 1 Each Tablet 1 Each PO BID Fluoxetine Hcl 40 Mg Capsule 1 Cap PO DAILY NITROGLYCERIN SubLingual (Nitroglycerin) 0.4 Mg Tab.subl 0.4 Mg SL PRN Q5MIN PRN Clopidogrel (Clopidogrel Bisulfate) 75 Mg Tablet 1 Tab PO DAILY Potassium Chloride 20 Meq Tablet.er 20 Meq PO DAILY Furosemide 80 Mg Tablet 1 Tab PO BID Atorvastatin Calcium 40 Mg Tablet 1 Tab PO QHS Vitals/I & O Vital Sign - Last 24 Hours 01/03/18 01/03/18 01/03/18 01/03/18 13:00 13:28 14:00 14:36 Pulse 76 77 80 Resp 20 24 B/P (MAP) 162/60 (94) 169/95 (119) 193/103 Pulse Ox 100 98 100 O2 Delivery Ventilator Ventilator Ventilator 01/03/18 01/03/18 01/03/18 01/03/18 15:00 16:00 16:00 17:00 Temp 99.0 99.0 Pulse 82 82 73 Resp 24 24 22 B/P (MAP) 166/90 (115) 150/85 (106) 160/85 (110) Pulse Ox 95 95 96 O2 Delivery Venturi Mask Venturi Mask Venturi Mask Venturi Mask O2 Flow Rate 15.0 15.0 15.0 01/03/18 18/18 18/18 18/18 17:44 18:00 18:00 19:00 Temp 98.7 98.7 Pulse 69 69 66 Resp 18 24 B/P (MAP) 165/85 165/85 (111) 141/86 (104) Pulse Ox 96 96 97 O2 Delivery BiPAP/CPAP BiPAP/CPAP BiPAP/CPAP 18 01/03/18 18/18 01/03/18 19:43 20:00 20:00 21:00 Pulse 64 64 Resp 22 21 B/P (MAP) 156/78 (104) 150/91 (110) Pulse Ox 96 96 97 O2 Delivery BiPAP/CPAP BiPAP/CPAP Bi-pap BiPAP/CPAP 01/03/1801/03/18 01/03/18 01/03/18 21:00 22:00 23:00 23:05 Pulse 66 66 Resp 21 21 B/P (MAP) 148/81 (103) 113/72 (86) Pulse Ox 95 97 97 97 O2 Delivery BiPAP/CPAP BiPAP/CPAP BiPAP/CPAP BiPAP/CPAP 18 01/04/18 01/04/18 01/04/18 23:59 00:01 00:20 01:00 Temp 98.2 98.2 Pulse 66 65 Resp 21 B/P (MAP) 116/64 (81) 116/64 Pulse Ox 97 99 O2 Delivery Bi-pap BiPAP/CPAP BiPAP/CPAP 01/04/1801/04/18 01/04/18 01/04/18 01:00 02:00 03:00 04:00 Pulse 58 67 64 Resp 18 19 23 B/P (MAP) 139/64 (89) 133/73 (93) 148/80 (102) Pulse Ox 97 98 95 O2 Delivery BiPAP/CPAP BiPAP/CPAP Venturi Mask Venturi Mask O2 Flow Rate 15.0 15.0 01/04/18 01/04/18 01/04/18 18 04:00 05:00 06:00 06:02 Temp 98.4 98.4 Pulse 67 65 64 65 Resp 25 23 16 B/P (MAP) 143/63 (89) 152/65 (94) 159/78 (105) 152/65 Pulse Ox 95 95 93 O2 Delivery Venturi Mask Venturi Mask Nasal Cannula O2 Flow Rate 15.0 15.0 5.0 01/04/18 01/04/18 01/04/18 01/04/18 07:00 08:00 08:00 09:00 Temp 98.1 98.1 Pulse 70 68 68 Resp 20 18 18 B/P (MAP) 150/71 (97) 164/81 (108) 195/105 (135) Pulse Ox 92 94 94 O2 Delivery Nasal Cannula Nasal Cannula Nasal Cannula Nasal Cannula O2 Flow Rate 5.0 5.0 5.0 5.0 01/04/18 10:00 Pulse 70 Resp 16 B/P (MAP) 140/78 (98) Pulse Ox 94 O2 Delivery Nasal Cannula O2 Flow Rate 5.0 Intake and Output 01/03/18 01/03/18 01/04/18 15:00 23:00 07:00 Intake Total 720 ml 795 ml 47 ml Output Total 1475 ml 460 ml 345 ml Balance -755 ml 335 ml -298 ml DUNCAN DC MD Jan 04, 2018 12:55
[2018-01-04] MEDS: FUROSEMIDE 40 MG/4 ML VIAL. IVP SCH (13:43)
[2018-01-04] MEDS ORDERED: diphenhydrAMINE HCL 25 MG CAPSULE PO PRN (15:00)
[2018-01-04] MEDS: CARVEDILOL 12.5 MG TABLET. PO SCH (16:38)
[2018-01-04] MEDS ORDERED: CARVEDILOL 12.5 MG TABLET. PO SCH (17:00)
[2018-01-04] MEDS ORDERED: VALSARTAN PO SCH (21:00)
[2018-01-04] MEDS ORDERED: ATORVASTATIN CALCIUM 40 MG TABLET. PO SCH (21:00)
[2018-01-04] MEDS ORDERED: SACUBITRIL PO SCH (21:00)
[2018-01-04] MEDS: ATORVASTATIN CALCIUM 40 MG TABLET. PO SCH (22:15)
[2018-01-05] VITALS (12 sets, daily range): BP systolic 110–189; BP diastolic 61–80
[2018-01-05] MEDS: HEPARIN 25,000UTS/500ML PREMIX 500 ML IV PRN ×2 (02:16→16:48)
[2018-01-05 07:38] LABS: CALCIUM 8.1 mg/dL (8.5-10.1); GFR 30.2; POTASSIUM 3.8 mmol/L (3.5-5.1)
[2018-01-05] MEDS: INSULIN LISPRO 300 UNITS/3 ML INSULN.PEN. SQ SCH ×3 (08:00→16:46)
[2018-01-05] MEDS: PANTOPRAZOLE 40 MG TABLET.DR. PO SCH (08:06)
[2018-01-05] MEDS: CLOPIDOGREL BISULFATE 75 MG TABLET PO SCH (08:07)
[2018-01-05] MEDS: POTASSIUM CHLORIDE 20 MEQ TABLET.ER. PO SCH (08:07)
[2018-01-05] MEDS: CARVEDILOL 12.5 MG TABLET. PO SCH ×2 (08:08→15:22)
[2018-01-05] MEDS: FLUoxetine HCL 20 MG CAPSULE PO SCH (08:11)
[2018-01-05] MEDS: NYSTATIN TOPICAL POWDER 15GM BOTTLE. TP SCH ×2 (08:11→20:46)
[2018-01-05] MEDS ORDERED: INFLUENZA VAX SCREEN BY RX. MC ONE (09:00)
[2018-01-05] MEDS: ANTI-COAG MONITOR BY PHARMACY. MC PRN (09:02)
[2018-01-05] MEDS: FUROSEMIDE 40 MG/4 ML VIAL. IVP SCH ×2 (09:26→15:21)
[2018-01-05] MEDS: SACUBITRIL/VALSARTAN 49/51MG TABLET. PO SCH ×2 (09:27→20:46)
[2018-01-05] MEDS: LACTOBACILLUS RHAMNOSUS GG 1 CAPSULE. PO SCH ×2 (09:34→20:46)
--- NOTE | 2018-01-05 10:58 | PDOC ---
PULMONARY PROGRESS NOTES Subjective extubated 01/03 doing well used BIPAP last night Vitals Vital Signs Date Time Temp Pulse Resp B/P (MAP) Pulse Ox O2 Delivery O2 Flow Rate FiO2 01/05/18 09:27 143/65 01/05/18 08:00 Nasal Cannula 5.0 01/05/18 06:00 69 30 97 01/05/18 04:00 98.7 98.7 General: Alert, No acute distress Lungs: Other (decrease bs) Cardiovascular: S1 Abdomen: Soft, Other (obese) Extremities: Other (1+edema) Labs Laboratory Tests Test 01/03/18 12:30 01/03/18 12:40 01/03/18 14:15 01/04/18 00:23 Heparin Anti-Xa Act, Unfractionated 0.34 IU/mL (0.30-0.70) Glucose (Fingerstick) 180 mg/dL (70-99) 129 mg/dL (70-99) O2 Saturation 97 % (92-99) Arterial Blood pH 7.39 (7.35-7.45) Arterial Blood pCO2 at Patient Temp 44 mmHg (35-46) Arterial Blood pO2 at Patient Temp 94 mmHg (65-108) Arterial Blood HCO3 26 mmol/L (21-28) Arterial Blood Base Excess 1 mmol/L (-3-3) FiO2 40 Test 01/04/18 06:00 01/04/18 06:03 01/04/18 11:45 01/04/18 12:28 White Blood Count 10.2 x10^3/uL (4.0-11.0) Red Blood Count 3.33 x10^6/uL (3.50-5.40) Hemoglobin 9.9 g/dL (12.0-15.5) Hematocrit 29.8 % (36.0-47.0) Mean Corpuscular Volume 90 fL (79-100) Mean Corpuscular Hemoglobin 30 pg (25-35) Mean Corpuscular Hemoglobin Concent 33 g/dL (31-37) Red Cell Distribution Width 17.1 % (11.5-14.5) Platelet Count 195 x10^3/uL (140-400) Neutrophils (%) (Auto) 67 % (31-73) Lymphocytes (%) (Auto) 16 % (24-48) Monocytes (%) (Auto) 14 % (0-9) Eosinophils (%) (Auto) 2 % (0-3) Basophils (%) (Auto) 1 % (0-3) Neutrophils # (Auto) 6.8 x10^3uL (1.8-7.7) Lymphocytes # (Auto) 1.7 x10^3/uL (1.0-4.8) Monocytes # (Auto) 1.5 x10^3/uL (0.0-1.1) Eosinophils # (Auto) 0.2 x10^3/uL (0.0-0.7) Basophils # (Auto) 0.1 x10^3/uL (0.0-0.2) Heparin Anti-Xa Act, Unfractionated 0.28 IU/mL (0.30-0.70) 0.43 IU/mL (0.30-0.70) Sodium Level 144 mmol/L (136-145) Potassium Level 3.3 mmol/L (3.5-5.1) Chloride Level 106 mmol/L (98-107) Carbon Dioxide Level 30 mmol/L (21-32) Anion Gap 8 (6-14) Blood Urea Nitrogen 18 mg/dL (7-20) Creatinine 1.8 mg/dL (0.6-1.0) Estimated GFR (Cockcroft-Gault) 34.1 Glucose Level 130 mg/dL (70-99) Calcium Level 8.2 mg/dL (8.5-10.1) Glucose (Fingerstick) 115 mg/dL (70-99) 139 mg/dL (70-99) Test 01/04/18 16:39 01/04/18 17:25 01/05/18 04:25 Glucose (Fingerstick) 149 mg/dL (70-99) Heparin Anti-Xa Act, Unfractionated 0.43 IU/mL (0.30-0.70) 0.43 IU/mL (0.30-0.70) Sodium Level 141 mmol/L (136-145) Potassium Level 3.8 mmol/L (3.5-5.1) Chloride Level 103 mmol/L (98-107) Carbon Dioxide Level 30 mmol/L (21-32) Anion Gap 8 (6-14) Blood Urea Nitrogen 21 mg/dL (7-20) Creatinine 2.0 mg/dL (0.6-1.0) Estimated GFR (Cockcroft-Gault) 30.2 Glucose Level 144 mg/dL (70-99) Calcium Level 8.1 mg/dL (8.5-10.1) Laboratory Tests Test 01/04/18 11:45 01/04/18 12:28 01/04/18 16:39 01/04/18 17:25 Heparin Anti-Xa Act, Unfractionated 0.43 IU/mL (0.30-0.70) 0.43 IU/mL (0.30-0.70) Glucose (Fingerstick) 139 mg/dL (70-99) 149 mg/dL (70-99) Test 01/05/18 04:25 Heparin Anti-Xa Act, Unfractionated 0.43 IU/mL (0.30-0.70) Sodium Level 141 mmol/L (136-145) Potassium Level 3.8 mmol/L (3.5-5.1) Chloride Level 103 mmol/L (98-107) Carbon Dioxide Level 30 mmol/L (21-32) Anion Gap 8 (6-14) Blood Urea Nitrogen 21 mg/dL (7-20) Creatinine 2.0 mg/dL (0.6-1.0) Estimated GFR (Cockcroft-Gault) 30.2 Glucose Level 144 mg/dL (70-99) Calcium Level 8.1 mg/dL (8.5-10.1) Medications Active Scripts Medications Dose Route/Sig Max Daily Dose Days Date Category Lantus (Insulin Glargine,Hum.rec.anlog) 100 Unit/1 Ml Vial 1 Unit SQ 01/02/18 Reported Novolog Flexpen (Insulin Aspart) 100 Unit/1 Ml Insuln.pen 1 Unit SQ 01/02/18 Reported Protonix (Pantoprazole Sodium) 40 Mg Granpkt.dr 40 Mg PO DAILY 01/02/18 Reported Bidil Tablet (Isosorb Dinit/Hydralazine Hcl) 1 Each Tablet 1 Each PO TID 01/02/18 Reported Carvedilol 25 Mg Tablet 25 Mg PO BIDWMEALS 01/02/18 Reported Amlodipine Besylate 5 Mg Tablet 5 Mg PO DAILY 01/02/18 Reported Entresto 49 mg-51 mg Tablet (Sacubitril/Valsartan) 1 Each Tablet 1 Each PO BID 01/02/18 Reported Fluoxetine Hcl 40 Mg Capsule 1 Cap PO DAILY 01/02/18 Reported NITROGLYCERIN SubLingual (Nitroglycerin) 0.4 Mg Tab.subl 0.4 Mg SL PRN Q5MIN PRN 01/02/18 Reported Clopidogrel (Clopidogrel Bisulfate) 75 Mg Tablet 1 Tab PO DAILY 01/02/18 Reported Potassium Chloride 20 Meq Tablet.er 20 Meq PO DAILY 01/02/18 Reported Furosemide 80 Mg Tablet 1 Tab PO BID 01/02/18 Reported Atorvastatin Calcium 40 Mg Tablet 1 Tab PO QHS 01/02/18 Reported Comments CXR unchanged infiltrates Impression . 1. [id number] hypoxic and hypercapnic respiratory failure secondary to non-ST segment myocardial infarction and acute congestive heart failure. Underlying chronic obstructive pulmonary disease may have contributed to the symptoms. extubated 01/03 2. possible pneumonia, 3. Abnormal chest x-ray with bilateral infiltrates, more on the right than on the left, likely related to pulmonary edema. She has a large cardiac silhouette as well. Cannot exclude underlying Pneumonia. 4. Suspected underlying chronic obstructive pulmonary disease. 5. Underlying obstructive sleep apnea with suspected obesity hypoventilation syndrome. 6. Acute kidney injury. 7. Moderate protein-calorie malnutrition, with an albumin level of 2.7. 8. Increasing troponin/ NSTMI 9. 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 1. Continue with present nasal canula 2. Diuresis. 3. empiric antibiotic. 4. Follow Cardiology recommendation regarding the need for cardiac catheterization.EF 30% 5. echocardiogram.reviewed 6. Follow chest x-rays NEEDED 7. heparin per Cardiology recommendation. 8. PPI for stress ulcer prophylaxis. 9. Discussed with the patient's family, RN and RT. 10. oral nutrition 11 PT consult transfer to floor MARY MATSON MD Jan 05, 2018 10:58
--- NOTE | 2018-01-05 13:18 | PDOC ---
PROGRESS NOTES Chief Complaint Chief Complaint acute hypoxic resap failure with CHF ACUTE systolic CHF exacerbation EF 30% copd possible bl PNA ckd3 dm2 htn Severe morbid obesity NSTEMI plan: fu with lia son ICU care EXUTubated 01/03 passed swallow eval, resume some home meds cont lasix iv 40mg bid intake and output monitor, BP ok, monitor urine output on heparin drip, may need cath soon cont levaquin, duoneb gi ppx ssi ptot, SW fu CXR as needed talked to nurse , ok transfer out of ICU History of Present Illness History of Present Illness ROS: no fever, chills, extubated 01/03, on NC 5L, home o2 4L CXR slightly better, still bl infiltrates Vitals Vitals Vital Signs Date Time Temp Pulse Resp B/P (MAP) Pulse Ox O2 Delivery O2 Flow Rate FiO2 01/05/18 11:00 98.2 64 21 127/78 (94) 97 Nasal Cannula 5.0 98.2 Physical Exam Physical Exam General: Other (sedated) Heart: Regular rate, Normal S1, Normal S2, Other (heart tones distant and difficult to auscultate) Lungs: Other (decrease bs) Abdomen: Other (obese abdomen) Extremities: No edema Skin: No rashes Labs LABS Laboratory Tests Test 01/04/18 16:39 01/04/18 17:25 01/05/18 04:25 01/05/18 12:30 Glucose (Fingerstick) 149 mg/dL (70-99) 163 mg/dL (70-99) Heparin Anti-Xa Act, Unfractionated 0.43 IU/mL (0.30-0.70) 0.43 IU/mL (0.30-0.70) Sodium Level 141 mmol/L (136-145) Potassium Level 3.8 mmol/L (3.5-5.1) Chloride Level 103 mmol/L (98-107) Carbon Dioxide Level 30 mmol/L (21-32) Anion Gap 8 (6-14) Blood Urea Nitrogen 21 mg/dL (7-20) Creatinine 2.0 mg/dL (0.6-1.0) Estimated GFR (Cockcroft-Gault) 30.2 Glucose Level 144 mg/dL (70-99) Calcium Level 8.1 mg/dL (8.5-10.1) Assessment and Plan Assessmemt and Plan Problems Medical Problems: (1) Hyperglycemia Status: Acute (2) Hypoxia Status: Acute (3) Renal insufficiency Status: Acute (4) Respiratory failure Status: Acute (5) Septic shock Status: Acute (6) UTI (urinary tract infection) Status: Acute Comment Review of Relevant I have reviewed the following items linden (where applicable) has been applied. Labs Laboratory Tests Test 01/03/18 14:15 01/04/18 00:23 01/04/18 06:00 01/04/18 06:03 O2 Saturation 97 % (92-99) Arterial Blood pH 7.39 (7.35-7.45) Arterial Blood pCO2 at Patient Temp 44 mmHg (35-46) Arterial Blood pO2 at Patient Temp 94 mmHg (65-108) Arterial Blood HCO3 26 mmol/L (21-28) Arterial Blood Base Excess 1 mmol/L (-3-3) FiO2 40 Glucose (Fingerstick) 129 mg/dL (70-99) 115 mg/dL (70-99) White Blood Count 10.2 x10^3/uL (4.0-11.0) Red Blood Count 3.33 x10^6/uL (3.50-5.40) Hemoglobin 9.9 g/dL (12.0-15.5) Hematocrit 29.8 % (36.0-47.0) Mean Corpuscular Volume 90 fL (79-100) Mean Corpuscular Hemoglobin 30 pg (25-35) Mean Corpuscular Hemoglobin Concent 33 g/dL (31-37) Red Cell Distribution Width 17.1 % (11.5-14.5) Platelet Count 195 x10^3/uL (140-400) Neutrophils (%) (Auto) 67 % (31-73) Lymphocytes (%) (Auto) 16 % (24-48) Monocytes (%) (Auto) 14 % (0-9) Eosinophils (%) (Auto) 2 % (0-3) Basophils (%) (Auto) 1 % (0-3) Neutrophils # (Auto) 6.8 x10^3uL (1.8-7.7) Lymphocytes # (Auto) 1.7 x10^3/uL (1.0-4.8) Monocytes # (Auto) 1.5 x10^3/uL (0.0-1.1) Eosinophils # (Auto) 0.2 x10^3/uL (0.0-0.7) Basophils # (Auto) 0.1 x10^3/uL (0.0-0.2) Heparin Anti-Xa Act, Unfractionated 0.28 IU/mL (0.30-0.70) Sodium Level 144 mmol/L (136-145) Potassium Level 3.3 mmol/L (3.5-5.1) Chloride Level 106 mmol/L (98-107) Carbon Dioxide Level 30 mmol/L (21-32) Anion Gap 8 (6-14) Blood Urea Nitrogen 18 mg/dL (7-20) Creatinine 1.8 mg/dL (0.6-1.0) Estimated GFR (Cockcroft-Gault) 34.1 Glucose Level 130 mg/dL (70-99) Calcium Level 8.2 mg/dL (8.5-10.1) Test 01/04/18 11:45 01/04/18 12:28 01/04/18 16:39 01/04/18 17:25 Heparin Anti-Xa Act, Unfractionated 0.43 IU/mL (0.30-0.70) 0.43 IU/mL (0.30-0.70) Glucose (Fingerstick) 139 mg/dL (70-99) 149 mg/dL (70-99) Test 01/05/18 04:25 01/05/18 12:30 Heparin Anti-Xa Act, Unfractionated 0.43 IU/mL (0.30-0.70) Sodium Level 141 mmol/L (136-145) Potassium Level 3.8 mmol/L (3.5-5.1) Chloride Level 103 mmol/L (98-107) Carbon Dioxide Level 30 mmol/L (21-32) Anion Gap 8 (6-14) Blood Urea Nitrogen 21 mg/dL (7-20) Creatinine 2.0 mg/dL (0.6-1.0) Estimated GFR (Cockcroft-Gault) 30.2 Glucose Level 144 mg/dL (70-99) Calcium Level 8.1 mg/dL (8.5-10.1) Glucose (Fingerstick) 163 mg/dL (70-99) Laboratory Tests Test 01/04/18 16:39 01/04/18 17:25 01/05/18 04:25 01/05/18 12:30 Glucose (Fingerstick) 149 mg/dL (70-99) 163 mg/dL (70-99) Heparin Anti-Xa Act, Unfractionated 0.43 IU/mL (0.30-0.70) 0.43 IU/mL (0.30-0.70) Sodium Level 141 mmol/L (136-145) Potassium Level 3.8 mmol/L (3.5-5.1) Chloride Level 103 mmol/L (98-107) Carbon Dioxide Level 30 mmol/L (21-32) Anion Gap 8 (6-14) Blood Urea Nitrogen 21 mg/dL (7-20) Creatinine 2.0 mg/dL (0.6-1.0) Estimated GFR (Cockcroft-Gault) 30.2 Glucose Level 144 mg/dL (70-99) Calcium Level 8.1 mg/dL (8.5-10.1) Microbiology 01/02/18 Blood Culture - Preliminary, Resulted NO GROWTH AFTER 3 DAYS 01/01/18 Urine Culture - Final, Complete 01/01/18 Urine Culture Result 1 (EDU) - Final, Complete 01/01/18 Antimicrobic Susceptibility - Final, Complete Medications Current Medications Propofol 100 ml @ 0 mls/hr CONT PRN IV PER PROTOCOL Last administered on at 12:14; Start 01/01/18 at 23:00; Stop 01/03/18 at 15:38; Status DC Fentanyl Citrate (Fentanyl 2ml Vial) 25 mcg PRN Q1HR PRN IV MILD PAIN; Start at 23:00 Fentanyl Citrate (Fentanyl 2ml Vial) 50 mcg PRN Q1HR PRN IV MOD TO SEVERE PAIN Last administered on 01/01/18at 23:57; Start 01/01/18 at 23:00 Chlorhexidine Gluconate (Peridex) 15 ml BID MM Last administered on 01/03/18at 08:57; Start 01/02/18 at 09:00; Stop 01/03/18 at 17:45; Status DC Aztreonam 2 gm/ Dextrose 100 ml @ 200 mls/hr 1X ONCE IV Last administered on 01/02/18at 00:23; Start 01/01/18 at 23:30; Stop 01/01/18 at 23:59; Status DC Vancomycin HCl 2 gm/Sodium Chloride 500 ml @ 250 mls/hr 1X ONCE IV Last administered on 01/02/18at 01:13; Start 01/02/18 at 01:30; Stop 01/02/18 at 03:29 ; Status DC Levofloxacin/ Dextrose 100 ml @ 100 mls/hr 1X ONCE IV Last administered on at 23:56; Start 01/01/18 at 23:30; Stop 01/02/18 at 00:29; Status DC Propofol 50 ml @ As Directed STK-MED ONCE IV ; Start 01/01/18 at 23:16; Stop at 23:17; Status DC Lidocaine/ Epinephrine (LIDOCAINE 1%-EPI 1:100,000 Multi-Dose) 20 ml STK-MED ONCE .ROUTE ; Start 01/01/18 at 23:40; Stop 01/01/18 at 23:41; Status DC Propofol 50 ml @ As Directed STK-MED ONCE IV ; Start 01/01/18 at 23:50; Stop at 23:51; Status DC Sodium Chloride 1,000 ml @ 1,000 mls/hr 1X ONCE IV Last administered on at 00:00; Start 01/02/18 at 01:00; Stop 01/02/18 at 01:59; Status DC Sodium Chloride 1,000 ml @ 1,000 mls/hr 1X ONCE IV Last administered on at 01:12; Start 01/02/18 at 01:00; Stop 01/02/18 at 01:59; Status DC Ondansetron HCl (Zofran) 4 mg PRN Q8HRS PRN IV NAUSEA/VOMITING 1ST CHOICE; Start 01/02/18 at 01:30; Stop 01/03/18 at 01:29; Status DC Insulin Human Lispro (HumaLOG) 0-5 UNITS TIDWMEALS SQ ; Start 01/02/18 at 08:00 ; Stop 01/02/18 at 11:03; Status DC Dextrose (Dextrose 50%-Water Syringe) 12.5 gm PRN Q15MIN PRN IV SEE COMMENTS; Start 01/02/18 at 01:30; Status Cancel Heparin Sodium/ Dextrose 500 ml @ 0 mls/hr CONT PRN IV SEE I/O RECORD Last administered on 01/05/18at 02:16; Start 01/02/18 at 05:45 Heparin Sodium (Porcine) (Heparin Sodium) 5,100 unit PRN Q6HRS PRN IV FOR UFH LEVEL LESS THAN 0.2; Start 01/02/18 at 05:45 Info (Anti-Coagulation Monitoring By Pharmacy) 1 each PRN DAILY PRN MC SEE COMMENTS Last administered on 01/05/18at 09:02; Start 01/02/18 at 05:45 Etomidate (Amidate) 20 mg 1X ONCE IV Last administered on 01/01/18at 22:31; Start 01/02/18 at 06:00; Stop 01/02/18 at 06:01; Status DC Rocuronium [place] (Zemuron) 50 mg 1X ONCE IV Last administered on 01/01/18at 22:31; Start 01/02/18 at 06:00; Stop 01/02/18 at 06:01; Status DC Enalaprilat (Vasotec Inj) 2.5 mg PRN Q6HRS PRN IVP HYPERTENSION, SEE COMMENTS Last administered on 01/03/18at 14:36; Start 01/02/18 at 09:00; Stop 01/05/18 at 08:07; Status DC Metoprolol Tartrate (Lopressor Vial) 5 mg PRN Q6HRS PRN IVP HYPERTENSION, SEE COMMENTS; Start 01/02/18 at 10:30; Stop 01/02/18 at 10:59; Status DC Famotidine (Pepcid Vial) 20 mg QHS IVP Last administered on 01/04/18at 00:14; Start 01/02/18 at 21:00; Stop 01/04/18 at 11:42; Status DC Furosemide (Lasix) 60 mg 1X ONCE IVP Last administered on 01/02/18at 11:18; Start 01/02/18 at 11:30; Stop 01/02/18 at 11:31; Status DC Levofloxacin/ Dextrose 100 ml @ 100 mls/hr Q24H IV Last administered on at 22:16; Start 01/02/18 at 23:00 Metoprolol Tartrate (Lopressor Vial) 5 mg Q6HRS IVP Last administered on at 06:02; Start 01/02/18 at 12:00; Stop 01/04/18 at 10:58; Status DC Insulin Human Lispro (HumaLOG) 0-5 UNITS Q4HRS SQ Last administered on at 12:42; Start 01/02/18 at 12:00; Stop 01/04/18 at 11:42; Status DC Furosemide (Lasix) 60 mg 1X ONCE IVP Last administered on 01/03/18at 08:57; Start 01/03/18 at 09:00; Stop 01/03/18 at 09:01; Status DC Furosemide (Lasix) 40 mg [id number] IVP ; Start 01/04/18 at 09:00; Stop 01/04/18 at 09:00; Status DC Atorvastatin Calcium (Lipitor) 40 mg QHS PO Last administered on 01/04/18at 22: 15; Start 01/03/18 at 21:00 Furosemide (Lasix) 40 mg DAILY IVP Last administered on 01/04/18at 09:21; Start 01/04/18 at 09:00; Stop 01/04/18 at 10:58; Status DC Nystatin (Nystop) 1 charu BID TP Last administered on 01/05/18at 08:11; Start at 21:00 Potassium Chloride/Water 50 ml @ 50 mls/hr 1X ONCE IV Last administered on at 09:20; Start 01/04/18 at 10:00; Stop 01/04/18 at 10:59; Status DC Furosemide (Lasix) 40 mg [id number] IVP Last administered on 01/05/18at 09:26; Start 01/04/18 at 14:00 Carvedilol (Coreg) 25 mg BIDWMEALS PO Last administered on 01/05/18at 08:08; Start 01/04/18 at 17:00 Atorvastatin Calcium (Lipitor) 40 mg QHS PO ; Start 01/04/18 at 21:00; Status Cancel Clopidogrel Bisulfate (Plavix) 75 mg DAILY PO Last administered on 01/05/18at 08 :07; Start 01/04/18 at 12:00 Carvedilol (Coreg) 25 mg BIDWMEALS PO ; Start 01/04/18 at 17:00; Status Cancel Fluoxetine HCl (PROzac) 40 mg DAILY PO Last administered on 01/05/18at 08:11; Start 01/04/18 at 12:00 Pantoprazole Sodium (Protonix) 40 mg DAILYAC PO Last administered on 01/05/18at 08:06; Start 01/04/18 at 12:00 Potassium Chloride (Klor-Con) 20 meq [id number] PO Last administered on at 08:07; Start 01/04/18 at 12:00 Non-Formulary Medication (Sacubitril/ Valsartan (Entresto 49 mg-51 mg Tablet)) 1 each BID PO ; Start 01/04/18 at 21:00; Stop 01/04/18 at 21:00; Status DC Insulin Human Lispro (HumaLOG) 0-9 UNITS TIDWMEALS SQ Last administered on 01/05at 12:37; Start 01/04/18 at 12:00 Dextrose (Dextrose 50%-Water Syringe) 12.5 gm PRN Q15MIN PRN IV SEE COMMENTS; Start 01/04/18 at 11:45 Diphenhydramine HCl (Benadryl) 25 mg PRN QHS PRN PO INSOMNIA; Start 01/04/18 at 15:00 Sacubitril/ Valsartan (Entresto 49 Mg-51 Mg) 1 tab BID PO Last administered on 01/05/18at 09:27; Start 01/05/18 at 09:00 Info (Do NOT chart on this placeholder) 1 each 1X ONCE MC ; Start 01/05/18 at 09:00; Stop 01/05/18 at 09:01; Status UNV Influenza Virus Vaccine (Afluria Trivalent [id number] Syringe) 0.5 ml ONCE ONCE VAX IM Last administered on 01/05/18at 09:33; Start 01/05/18 at 10:00; Stop at 10:01; Status DC Lactobacillus Rhamnosus (Culturelle) 1 cap BID PO Last administered on at 09:34; Start 01/05/18 at 09:30 Active Scripts Active Reported Lantus (Insulin Glargine,Hum.rec.anlog) 100 Unit/1 Ml Vial 1 Unit SQ Novolog Flexpen (Insulin Aspart) 100 Unit/1 Ml Insuln.pen 1 Unit SQ Protonix (Pantoprazole Sodium) 40 Mg Granpkt.dr 40 Mg PO DAILY Bidil Tablet (Isosorb Dinit/Hydralazine Hcl) 1 Each Tablet 1 Each PO TID Carvedilol 25 Mg Tablet 25 Mg PO BIDWMEALS Amlodipine Besylate 5 Mg Tablet 5 Mg PO DAILY Entresto 49 mg-51 mg Tablet (Sacubitril/Valsartan) 1 Each Tablet 1 Each PO BID Fluoxetine Hcl 40 Mg Capsule 1 Cap PO DAILY NITROGLYCERIN SubLingual (Nitroglycerin) 0.4 Mg Tab.subl 0.4 Mg SL PRN Q5MIN PRN Clopidogrel (Clopidogrel Bisulfate) 75 Mg Tablet 1 Tab PO DAILY Potassium Chloride 20 Meq Tablet.er 20 Meq PO DAILY Furosemide 80 Mg Tablet 1 Tab PO BID Atorvastatin Calcium 40 Mg Tablet 1 Tab PO QHS Vitals/I & O Vital Sign - Last 24 Hours 01/04/18 01/04/18 01/04/18 01/04/18 14:00 15:00 16:00 16:00 Pulse 70 72 82 Resp 16 18 16 B/P (MAP) 155/79 (104) 130/76 (94) 142/86 (104) Pulse Ox 94 95 92 O2 Delivery Nasal Cannula Nasal Cannula Nasal Cannula Nasal Cannula O2 Flow Rate 5.0 5.0 5.0 5.0 01/04/18 01/04/18 01/04/18 01/04/18 16:38 17:00 18:00 19:00 Temp 99.2 99.2 Pulse 68 72 76 67 Resp 16 18 16 B/P (MAP) 146/82 149/87 (107) 137/60 (85) 159/84 (109) Pulse Ox 92 90 96 O2 Delivery Nasal Cannula Nasal Cannula Nasal Cannula O2 Flow Rate 5.0 5.0 5.0 01/04/18 01/04/18 01/04/18 01/04/18 20:00 20:00 21:00 22:00 Temp 98.7 98.7 Pulse 65 67 65 Resp 16 15 20 B/P (MAP) 148/78 (101) 149/78 (101) 136/76 (96) Pulse Ox 96 94 95 O2 Delivery Nasal Cannula Nasal Cannula Nasal Cannula Nasal Cannula O2 Flow Rate 5.0 5.0 5.0 5.0 01/04/18 01/04/18 01/05/18 01/05/18 23:00 23:59 00:00 01:00 Temp 98.6 98.6 Pulse 65 64 65 Resp 15 15 18 B/P (MAP) 128/65 (86) 123/65 (84) 110/64 (79) Pulse Ox 96 97 96 O2 Delivery Nasal Cannula Nasal Cannula Nasal Cannula Nasal Cannula O2 Flow Rate 5.0 5.0 5.0 5.0 01/05/18 01/05/18 01/05/18 01/05/18 02:00 03:00 04:00 04:00 Temp 98.7 98.7 Pulse 67 60 64 Resp 25 14 16 B/P (MAP) 132/78 (96) 140/79 (99) 140/74 (96) Pulse Ox 96 96 96 O2 Delivery Nasal Cannula Nasal Cannula Nasal Cannula Nasal Cannula O2 Flow Rate 5.0 5.0 5.0 5.0 01/05/18 01/05/18 01/05/18 01/05/18 05:00 06:00 08:00 08:00 Temp 98.1 98.1 Pulse 69 69 62 Resp 30 30 20 B/P (MAP) 138/72 (94) 130/78 (95) 124/67 (86) Pulse Ox 93 97 97 O2 Delivery Nasal Cannula Nasal Cannula Nasal Cannula Nasal Cannula O2 Flow Rate 5.0 5.0 5.0 5.0 01/05/18 01/05/18 01/05/18 08:08 09:27 11:00 Temp 98.2 98.2 Pulse 64 Resp 21 B/P (MAP) 124/67 143/65 127/78 (94) Pulse Ox 97 O2 Delivery Nasal Cannula O2 Flow Rate 5.0 Intake and Output 01/04/18 01/04/18 01/05/18 15:00 23:00 07:00 Intake Total 50 ml 460 ml 372 ml Output Total 1010 ml 400 ml 240 ml Balance -960 ml 60 ml 132 ml DUNCAN DC MD Jan 05, 2018 13:18
[2018-01-05] MEDS: ATORVASTATIN CALCIUM 40 MG TABLET. PO SCH (20:46)
[2018-01-06 03:18] VITALS: BP 137/70
[2018-01-06] MEDS: PANTOPRAZOLE 40 MG TABLET.DR. PO SCH (05:29)
[2018-01-06 05:37] LABS: BASO # 0.1 x10^3/uL (0.0-0.2); BASO % 1 % (0-3); EOS # 0.3 x10^3/uL (0.0-0.7); EOS % 3 % (0-3); HEMATOCRIT 29.1 % (36.0-47.0); HEMOGLOBIN 9.5 g/dL (12.0-15.5); LYMPH % 11 % (24-48); MEAN CORPUSCULAR HEMOGLOBIN 29 pg (25-35); MEAN CORPUSCULAR HGB CONC 33 g/dL (31-37); MEAN CORPUSCULAR VOLUME 90 fL (79-100); MONO # 1.1 x10^3/uL (0.0-1.1); MONO % 12 % (0-9); NEUT # 6.9 x10^3uL (1.8-7.7); NEUT % 73 % (31-73); PLATELET COUNT 207 x10^3/uL (140-400); RED BLOOD COUNT 3.26 x10^6/uL (3.50-5.40); RED CELL DISTRIBUTION WIDTH 17.1 % (11.5-14.5); WHITE BLOOD COUNT 9.5 x10^3/uL (4.0-11.0)
[2018-01-06] MEDS: HEPARIN 25,000UTS/500ML PREMIX 500 ML IV PRN (05:37)
[2018-01-06 05:54] LABS: CALCIUM 7.9 mg/dL (8.5-10.1); GFR 30.2; POTASSIUM 3.9 mmol/L (3.5-5.1)
[2018-01-06 07:00] VITALS: BP 119/59
[2018-01-06] MEDS: NYSTATIN TOPICAL POWDER 15GM BOTTLE. TP SCH ×2 (09:00→20:55)
[2018-01-06] MEDS: FUROSEMIDE 40 MG/4 ML VIAL. IVP SCH ×2 (09:25→15:14)
[2018-01-06] MEDS: CARVEDILOL 12.5 MG TABLET. PO SCH ×2 (09:26→17:09)
[2018-01-06] MEDS: FLUoxetine HCL 20 MG CAPSULE PO SCH (09:26)
[2018-01-06] MEDS: POTASSIUM CHLORIDE 20 MEQ TABLET.ER. PO SCH (09:27)
[2018-01-06] MEDS: LACTOBACILLUS RHAMNOSUS GG 1 CAPSULE. PO SCH ×2 (09:27→20:53)
[2018-01-06] MEDS: CLOPIDOGREL BISULFATE 75 MG TABLET PO SCH (09:27)
[2018-01-06] MEDS: SACUBITRIL/VALSARTAN 49/51MG TABLET. PO SCH ×2 (09:27→20:54)
[2018-01-06] MEDS: INSULIN LISPRO 300 UNITS/3 ML INSULN.PEN. SQ SCH ×3 (09:45→17:46)
[2018-01-06 10:30] VITALS: BP 139/85
--- NOTE | 2018-01-06 13:36 | PDOC ---
PULMONARY PROGRESS NOTES Subjective extubated 01/03 doing well Vitals Vital Signs Date Time Temp Pulse Resp B/P (MAP) Pulse Ox O2 Delivery O2 Flow Rate FiO2 01/06/18 10:30 98.0 66 20 139/85 (103) 93 Nasal Cannula 5.0 98.0 General: Alert, No acute distress Lungs: Other (decrease bs) Cardiovascular: S1 Abdomen: Soft, Other (obese) Extremities: Other (1+edema) Labs Laboratory Tests Test 01/04/18 16:39 01/04/18 17:25 01/05/18 04:25 01/05/18 12:30 Glucose (Fingerstick) 149 mg/dL (70-99) 163 mg/dL (70-99) Heparin Anti-Xa Act, Unfractionated 0.43 IU/mL (0.30-0.70) 0.43 IU/mL (0.30-0.70) Sodium Level 141 mmol/L (136-145) Potassium Level 3.8 mmol/L (3.5-5.1) Chloride Level 103 mmol/L (98-107) Carbon Dioxide Level 30 mmol/L (21-32) Anion Gap 8 (6-14) Blood Urea Nitrogen 21 mg/dL (7-20) Creatinine 2.0 mg/dL (0.6-1.0) Estimated GFR (Cockcroft-Gault) 30.2 Glucose Level 144 mg/dL (70-99) Calcium Level 8.1 mg/dL (8.5-10.1) Test 01/05/18 16:34 01/05/18 20:43 01/06/18 05:30 01/06/18 06:57 Glucose (Fingerstick) 233 mg/dL (70-99) 153 mg/dL (70-99) 159 mg/dL (70-99) White Blood Count 9.5 x10^3/uL (4.0-11.0) Red Blood Count 3.26 x10^6/uL (3.50-5.40) Hemoglobin 9.5 g/dL (12.0-15.5) Hematocrit 29.1 % (36.0-47.0) Mean Corpuscular Volume 90 fL (79-100) Mean Corpuscular Hemoglobin 29 pg (25-35) Mean Corpuscular Hemoglobin Concent 33 g/dL (31-37) Red Cell Distribution Width 17.1 % (11.5-14.5) Platelet Count 207 x10^3/uL (140-400) Neutrophils (%) (Auto) 73 % (31-73) Lymphocytes (%) (Auto) 11 % (24-48) Monocytes (%) (Auto) 12 % (0-9) Eosinophils (%) (Auto) 3 % (0-3) Basophils (%) (Auto) 1 % (0-3) Neutrophils # (Auto) 6.9 x10^3uL (1.8-7.7) Lymphocytes # (Auto) 1.0 x10^3/uL (1.0-4.8) Monocytes # (Auto) 1.1 x10^3/uL (0.0-1.1) Eosinophils # (Auto) 0.3 x10^3/uL (0.0-0.7) Basophils # (Auto) 0.1 x10^3/uL (0.0-0.2) Heparin Anti-Xa Act, Unfractionated 0.29 IU/mL (0.30-0.70) Sodium Level 140 mmol/L (136-145) Potassium Level 3.9 mmol/L (3.5-5.1) Chloride Level 104 mmol/L (98-107) Carbon Dioxide Level 30 mmol/L (21-32) Anion Gap 6 (6-14) Blood Urea Nitrogen 22 mg/dL (7-20) Creatinine 2.0 mg/dL (0.6-1.0) Estimated GFR (Cockcroft-Gault) 30.2 Glucose Level 150 mg/dL (70-99) Calcium Level 7.9 mg/dL (8.5-10.1) Test 01/06/18 11:12 Glucose (Fingerstick) 158 mg/dL (70-99) Laboratory Tests Test 01/05/18 16:34 01/05/18 20:43 01/06/18 05:30 01/06/18 06:57 Glucose (Fingerstick) 233 mg/dL (70-99) 153 mg/dL (70-99) 159 mg/dL (70-99) White Blood Count 9.5 x10^3/uL (4.0-11.0) Red Blood Count 3.26 x10^6/uL (3.50-5.40) Hemoglobin 9.5 g/dL (12.0-15.5) Hematocrit 29.1 % (36.0-47.0) Mean Corpuscular Volume 90 fL (79-100) Mean Corpuscular Hemoglobin 29 pg (25-35) Mean Corpuscular Hemoglobin Concent 33 g/dL (31-37) Red Cell Distribution Width 17.1 % (11.5-14.5) Platelet Count 207 x10^3/uL (140-400) Neutrophils (%) (Auto) 73 % (31-73) Lymphocytes (%) (Auto) 11 % (24-48) Monocytes (%) (Auto) 12 % (0-9) Eosinophils (%) (Auto) 3 % (0-3) Basophils (%) (Auto) 1 % (0-3) Neutrophils # (Auto) 6.9 x10^3uL (1.8-7.7) Lymphocytes # (Auto) 1.0 x10^3/uL (1.0-4.8) Monocytes # (Auto) 1.1 x10^3/uL (0.0-1.1) Eosinophils # (Auto) 0.3 x10^3/uL (0.0-0.7) Basophils # (Auto) 0.1 x10^3/uL (0.0-0.2) Heparin Anti-Xa Act, Unfractionated 0.29 IU/mL (0.30-0.70) Sodium Level 140 mmol/L (136-145) Potassium Level 3.9 mmol/L (3.5-5.1) Chloride Level 104 mmol/L (98-107) Carbon Dioxide Level 30 mmol/L (21-32) Anion Gap 6 (6-14) Blood Urea Nitrogen 22 mg/dL (7-20) Creatinine 2.0 mg/dL (0.6-1.0) Estimated GFR (Cockcroft-Gault) 30.2 Glucose Level 150 mg/dL (70-99) Calcium Level 7.9 mg/dL (8.5-10.1) Test 01/06/18 11:12 Glucose (Fingerstick) 158 mg/dL (70-99) Medications Active Scripts Medications Dose Route/Sig Max Daily Dose Days Date Category Lantus (Insulin Glargine,Hum.rec.anlog) 100 Unit/1 Ml Vial 1 Unit SQ 01/02/18 Reported Novolog Flexpen (Insulin Aspart) 100 Unit/1 Ml Insuln.pen 1 Unit SQ 01/02/18 Reported Protonix (Pantoprazole Sodium) 40 Mg Granpkt.dr 40 Mg PO DAILY 01/02/18 Reported Bidil Tablet (Isosorb Dinit/Hydralazine Hcl) 1 Each Tablet 1 Each PO TID 01/02/18 Reported Carvedilol 25 Mg Tablet 25 Mg PO BIDWMEALS 01/02/18 Reported Amlodipine Besylate 5 Mg Tablet 5 Mg PO DAILY 01/02/18 Reported Entresto 49 mg-51 mg Tablet (Sacubitril/Valsartan) 1 Each Tablet 1 Each PO BID 01/02/18 Reported Fluoxetine Hcl 40 Mg Capsule 1 Cap PO DAILY 01/02/18 Reported NITROGLYCERIN SubLingual (Nitroglycerin) 0.4 Mg Tab.subl 0.4 Mg SL PRN Q5MIN PRN 01/02/18 Reported Clopidogrel (Clopidogrel Bisulfate) 75 Mg Tablet 1 Tab PO DAILY 01/02/18 Reported Potassium Chloride 20 Meq Tablet.er 20 Meq PO DAILY 01/02/18 Reported Furosemide 80 Mg Tablet 1 Tab PO BID 01/02/18 Reported Atorvastatin Calcium 40 Mg Tablet 1 Tab PO QHS 01/02/18 Reported Comments CXR unchanged infiltrates Impression . 1. [id number] hypoxic and hypercapnic respiratory failure secondary to non-ST segment myocardial infarction and acute congestive heart failure. Underlying chronic obstructive pulmonary disease may have contributed to the symptoms. extubated 01/03 2. possible pneumonia, 3. Abnormal chest x-ray with bilateral infiltrates, more on the right than on the left, likely related to pulmonary edema. She has a large cardiac silhouette as well. Cannot exclude underlying Pneumonia. 4. Suspected underlying chronic obstructive pulmonary disease. 5. Underlying obstructive sleep apnea with suspected obesity hypoventilation syndrome. 6. Acute kidney injury. 7. Moderate protein-calorie malnutrition, with an albumin level of 2.7. 8. Increasing troponin/ NSTMI 9. 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 1. Continue with present nasal canula 2. Diuresis. 3. empiric antibiotic. 4. Follow Cardiology recommendation regarding the need for cardiac catheterization.EF 30% 5. echocardiogram.reviewed 6. Follow chest x-rays NEEDED 7. Discussed with the patient's family, RN 10. oral nutrition 11 PT consult dc home in am MARY MATSON MD Jan 06, 2018 13:36
--- NOTE | 2018-01-06 14:06 | PDOC ---
PROGRESS NOTES Chief Complaint Chief Complaint acute hypoxic resap failure with CHF ACUTE systolic CHF exacerbation EF 30% copd possible bl PNA ckd3 dm2 htn Severe morbid obesity NSTEMI generalized weakness plan: fu with card , pulm EXUTubated 01/03 passed swallow eval, resume some home meds cont lasix iv 40mg bid intake and output monitor, BP ok, monitor urine output off heparin drip cont levaquin, duoneb gi ppx ssi ptot, SW fu CXR tmr fu with card to see if need cath otherwise dc tmr with HH, pt refused rehab ,said has grandaughter and daughter at home to help History of Present Illness History of Present Illness ROS: no fever, chills, extubated 01/03, on NC 5L, home o2 4L very weak to walk, but refuse to go rehab, said has home help CXR slightly better, still bl infiltrates Vitals Vitals Vital Signs Date Time Temp Pulse Resp B/P (MAP) Pulse Ox O2 Delivery O2 Flow Rate FiO2 01/06/18 10:30 98.0 66 20 139/85 (103) 93 Nasal Cannula 5.0 98.0 Physical Exam Physical Exam General: Other (sedated) Heart: Regular rate, Normal S1, Normal S2, Other (heart tones distant and difficult to auscultate) Lungs: Other (decrease bs) Abdomen: Other (obese abdomen) Extremities: No edema Skin: No rashes Labs LABS Laboratory Tests Test 01/05/18 16:34 01/05/18 20:43 01/06/18 05:30 01/06/18 06:57 Glucose (Fingerstick) 233 mg/dL (70-99) 153 mg/dL (70-99) 159 mg/dL (70-99) White Blood Count 9.5 x10^3/uL (4.0-11.0) Red Blood Count 3.26 x10^6/uL (3.50-5.40) Hemoglobin 9.5 g/dL (12.0-15.5) Hematocrit 29.1 % (36.0-47.0) Mean Corpuscular Volume 90 fL (79-100) Mean Corpuscular Hemoglobin 29 pg (25-35) Mean Corpuscular Hemoglobin Concent 33 g/dL (31-37) Red Cell Distribution Width 17.1 % (11.5-14.5) Platelet Count 207 x10^3/uL (140-400) Neutrophils (%) (Auto) 73 % (31-73) Lymphocytes (%) (Auto) 11 % (24-48) Monocytes (%) (Auto) 12 % (0-9) Eosinophils (%) (Auto) 3 % (0-3) Basophils (%) (Auto) 1 % (0-3) Neutrophils # (Auto) 6.9 x10^3uL (1.8-7.7) Lymphocytes # (Auto) 1.0 x10^3/uL (1.0-4.8) Monocytes # (Auto) 1.1 x10^3/uL (0.0-1.1) Eosinophils # (Auto) 0.3 x10^3/uL (0.0-0.7) Basophils # (Auto) 0.1 x10^3/uL (0.0-0.2) Heparin Anti-Xa Act, Unfractionated 0.29 IU/mL (0.30-0.70) Sodium Level 140 mmol/L (136-145) Potassium Level 3.9 mmol/L (3.5-5.1) Chloride Level 104 mmol/L (98-107) Carbon Dioxide Level 30 mmol/L (21-32) Anion Gap 6 (6-14) Blood Urea Nitrogen 22 mg/dL (7-20) Creatinine 2.0 mg/dL (0.6-1.0) Estimated GFR (Cockcroft-Gault) 30.2 Glucose Level 150 mg/dL (70-99) Calcium Level 7.9 mg/dL (8.5-10.1) Test 01/06/18 11:12 Glucose (Fingerstick) 158 mg/dL (70-99) Assessment and Plan Assessmemt and Plan Problems Medical Problems: (1) Hyperglycemia Status: Acute (2) Hypoxia Status: Acute (3) Renal insufficiency Status: Acute (4) Respiratory failure Status: Acute (5) Septic shock Status: Acute (6) UTI (urinary tract infection) Status: Acute Comment Review of Relevant I have reviewed the following items linden (where applicable) has been applied. Labs Laboratory Tests Test 01/04/18 16:39 01/04/18 17:25 01/05/18 04:25 01/05/18 12:30 Glucose (Fingerstick) 149 mg/dL (70-99) 163 mg/dL (70-99) Heparin Anti-Xa Act, Unfractionated 0.43 IU/mL (0.30-0.70) 0.43 IU/mL (0.30-0.70) Sodium Level 141 mmol/L (136-145) Potassium Level 3.8 mmol/L (3.5-5.1) Chloride Level 103 mmol/L (98-107) Carbon Dioxide Level 30 mmol/L (21-32) Anion Gap 8 (6-14) Blood Urea Nitrogen 21 mg/dL (7-20) Creatinine 2.0 mg/dL (0.6-1.0) Estimated GFR (Cockcroft-Gault) 30.2 Glucose Level 144 mg/dL (70-99) Calcium Level 8.1 mg/dL (8.5-10.1) Test 01/05/18 16:34 01/05/18 20:43 01/06/18 05:30 01/06/18 06:57 Glucose (Fingerstick) 233 mg/dL (70-99) 153 mg/dL (70-99) 159 mg/dL (70-99) White Blood Count 9.5 x10^3/uL (4.0-11.0) Red Blood Count 3.26 x10^6/uL (3.50-5.40) Hemoglobin 9.5 g/dL (12.0-15.5) Hematocrit 29.1 % (36.0-47.0) Mean Corpuscular Volume 90 fL (79-100) Mean Corpuscular Hemoglobin 29 pg (25-35) Mean Corpuscular Hemoglobin Concent 33 g/dL (31-37) Red Cell Distribution Width 17.1 % (11.5-14.5) Platelet Count 207 x10^3/uL (140-400) Neutrophils (%) (Auto) 73 % (31-73) Lymphocytes (%) (Auto) 11 % (24-48) Monocytes (%) (Auto) 12 % (0-9) Eosinophils (%) (Auto) 3 % (0-3) Basophils (%) (Auto) 1 % (0-3) Neutrophils # (Auto) 6.9 x10^3uL (1.8-7.7) Lymphocytes # (Auto) 1.0 x10^3/uL (1.0-4.8) Monocytes # (Auto) 1.1 x10^3/uL (0.0-1.1) Eosinophils # (Auto) 0.3 x10^3/uL (0.0-0.7) Basophils # (Auto) 0.1 x10^3/uL (0.0-0.2) Heparin Anti-Xa Act, Unfractionated 0.29 IU/mL (0.30-0.70) Sodium Level 140 mmol/L (136-145) Potassium Level 3.9 mmol/L (3.5-5.1) Chloride Level 104 mmol/L (98-107) Carbon Dioxide Level 30 mmol/L (21-32) Anion Gap 6 (6-14) Blood Urea Nitrogen 22 mg/dL (7-20) Creatinine 2.0 mg/dL (0.6-1.0) Estimated GFR (Cockcroft-Gault) 30.2 Glucose Level 150 mg/dL (70-99) Calcium Level 7.9 mg/dL (8.5-10.1) Test 01/06/18 11:12 Glucose (Fingerstick) 158 mg/dL (70-99) Laboratory Tests Test 01/05/18 16:34 01/05/18 20:43 01/06/18 05:30 01/06/18 06:57 Glucose (Fingerstick) 233 mg/dL (70-99) 153 mg/dL (70-99) 159 mg/dL (70-99) White Blood Count 9.5 x10^3/uL (4.0-11.0) Red Blood Count 3.26 x10^6/uL (3.50-5.40) Hemoglobin 9.5 g/dL (12.0-15.5) Hematocrit 29.1 % (36.0-47.0) Mean Corpuscular Volume 90 fL (79-100) Mean Corpuscular Hemoglobin 29 pg (25-35) Mean Corpuscular Hemoglobin Concent 33 g/dL (31-37) Red Cell Distribution Width 17.1 % (11.5-14.5) Platelet Count 207 x10^3/uL (140-400) Neutrophils (%) (Auto) 73 % (31-73) Lymphocytes (%) (Auto) 11 % (24-48) Monocytes (%) (Auto) 12 % (0-9) Eosinophils (%) (Auto) 3 % (0-3) Basophils (%) (Auto) 1 % (0-3) Neutrophils # (Auto) 6.9 x10^3uL (1.8-7.7) Lymphocytes # (Auto) 1.0 x10^3/uL (1.0-4.8) Monocytes # (Auto) 1.1 x10^3/uL (0.0-1.1) Eosinophils # (Auto) 0.3 x10^3/uL (0.0-0.7) Basophils # (Auto) 0.1 x10^3/uL (0.0-0.2) Heparin Anti-Xa Act, Unfractionated 0.29 IU/mL (0.30-0.70) Sodium Level 140 mmol/L (136-145) Potassium Level 3.9 mmol/L (3.5-5.1) Chloride Level 104 mmol/L (98-107) Carbon Dioxide Level 30 mmol/L (21-32) Anion Gap 6 (6-14) Blood Urea Nitrogen 22 mg/dL (7-20) Creatinine 2.0 mg/dL (0.6-1.0) Estimated GFR (Cockcroft-Gault) 30.2 Glucose Level 150 mg/dL (70-99) Calcium Level 7.9 mg/dL (8.5-10.1) Test 01/06/18 11:12 Glucose (Fingerstick) 158 mg/dL (70-99) Microbiology 01/02/18 Blood Culture - Preliminary, Resulted NO GROWTH AFTER 4 DAYS 01/01/18 Urine Culture - Final, Complete 01/01/18 Urine Culture Result 1 (EDU) - Final, Complete 01/01/18 Antimicrobic Susceptibility - Final, Complete Medications Current Medications Propofol 100 ml @ 0 mls/hr CONT PRN IV PER PROTOCOL Last administered on at 12:14; Start 01/01/18 at 23:00; Stop 01/03/18 at 15:38; Status DC Fentanyl Citrate (Fentanyl 2ml Vial) 25 mcg PRN Q1HR PRN IV MILD PAIN; Start at 23:00 Fentanyl Citrate (Fentanyl 2ml Vial) 50 mcg PRN Q1HR PRN IV MOD TO SEVERE PAIN Last administered on 01/01/18at 23:57; Start 01/01/18 at 23:00 Chlorhexidine Gluconate (Peridex) 15 ml BID MM Last administered on 01/03/18at 08:57; Start 01/02/18 at 09:00; Stop 01/03/18 at 17:45; Status DC Aztreonam 2 gm/ Dextrose 100 ml @ 200 mls/hr 1X ONCE IV Last administered on 01/02/18at 00:23; Start 01/01/18 at 23:30; Stop 01/01/18 at 23:59; Status DC Vancomycin HCl 2 gm/Sodium Chloride 500 ml @ 250 mls/hr 1X ONCE IV Last administered on 01/02/18at 01:13; Start 01/02/18 at 01:30; Stop 01/02/18 at 03:29 ; Status DC Levofloxacin/ Dextrose 100 ml @ 100 mls/hr 1X ONCE IV Last administered on at 23:56; Start 01/01/18 at 23:30; Stop 01/02/18 at 00:29; Status DC Propofol 50 ml @ As Directed STK-MED ONCE IV ; Start 01/01/18 at 23:16; Stop at 23:17; Status DC Lidocaine/ Epinephrine (LIDOCAINE 1%-EPI 1:100,000 Multi-Dose) 20 ml STK-MED ONCE .ROUTE ; Start 01/01/18 at 23:40; Stop 01/01/18 at 23:41; Status DC Propofol 50 ml @ As Directed STK-MED ONCE IV ; Start 01/01/18 at 23:50; Stop at 23:51; Status DC Sodium Chloride 1,000 ml @ 1,000 mls/hr 1X ONCE IV Last administered on at 00:00; Start 01/02/18 at 01:00; Stop 01/02/18 at 01:59; Status DC Sodium Chloride 1,000 ml @ 1,000 mls/hr 1X ONCE IV Last administered on at 01:12; Start 01/02/18 at 01:00; Stop 01/02/18 at 01:59; Status DC Ondansetron HCl (Zofran) 4 mg PRN Q8HRS PRN IV NAUSEA/VOMITING 1ST CHOICE; Start 01/02/18 at 01:30; Stop 01/03/18 at 01:29; Status DC Insulin Human Lispro (HumaLOG) 0-5 UNITS TIDWMEALS SQ ; Start 01/02/18 at 08:00 ; Stop 01/02/18 at 11:03; Status DC Dextrose (Dextrose 50%-Water Syringe) 12.5 gm PRN Q15MIN PRN IV SEE COMMENTS; Start 01/02/18 at 01:30; Status Cancel Heparin Sodium/ Dextrose 500 ml @ 0 mls/hr CONT PRN IV SEE I/O RECORD Last administered on 01/06/18at 05:37; Start 01/02/18 at 05:45; Stop 01/06/18 at 12:01 ; Status DC Heparin Sodium (Porcine) (Heparin Sodium) 5,100 unit PRN Q6HRS PRN IV FOR UFH LEVEL LESS THAN 0.2; Start 01/02/18 at 05:45; Stop 01/06/18 at 12:02; Status DC Info (Anti-Coagulation Monitoring By Pharmacy) 1 each PRN DAILY PRN MC SEE COMMENTS Last administered on 01/05/18at 09:02; Start 01/02/18 at 05:45; Stop at 12:02; Status DC Etomidate (Amidate) 20 mg 1X ONCE IV Last administered on 01/01/18at 22:31; Start 01/02/18 at 06:00; Stop 01/02/18 at 06:01; Status DC Rocuronium [place] (Zemuron) 50 mg 1X ONCE IV Last administered on 01/01/18at 22:31; Start 01/02/18 at 06:00; Stop 01/02/18 at 06:01; Status DC Enalaprilat (Vasotec Inj) 2.5 mg PRN Q6HRS PRN IVP HYPERTENSION, SEE COMMENTS Last administered on 01/03/18at 14:36; Start 01/02/18 at 09:00; Stop 01/05/18 at 08:07; Status DC Metoprolol Tartrate (Lopressor Vial) 5 mg PRN Q6HRS PRN IVP HYPERTENSION, SEE COMMENTS; Start 01/02/18 at 10:30; Stop 01/02/18 at 10:59; Status DC Famotidine (Pepcid Vial) 20 mg QHS IVP Last administered on 01/04/18at 00:14; Start 01/02/18 at 21:00; Stop 01/04/18 at 11:42; Status DC Furosemide (Lasix) 60 mg 1X ONCE IVP Last administered on 01/02/18at 11:18; Start 01/02/18 at 11:30; Stop 01/02/18 at 11:31; Status DC Levofloxacin/ Dextrose 100 ml @ 100 mls/hr Q24H IV Last administered on at 23:45; Start 01/02/18 at 23:00; Stop 01/06/18 at 13:37; Status DC Metoprolol Tartrate (Lopressor Vial) 5 mg Q6HRS IVP Last administered on at 06:02; Start 01/02/18 at 12:00; Stop 01/04/18 at 10:58; Status DC Insulin Human Lispro (HumaLOG) 0-5 UNITS Q4HRS SQ Last administered on at 12:42; Start 01/02/18 at 12:00; Stop 01/04/18 at 11:42; Status DC Furosemide (Lasix) 60 mg 1X ONCE IVP Last administered on 01/03/18at 08:57; Start 01/03/18 at 09:00; Stop 01/03/18 at 09:01; Status DC Furosemide (Lasix) 40 mg [id number] IVP ; Start 01/04/18 at 09:00; Stop 01/04/18 at 09:00; Status DC Atorvastatin Calcium (Lipitor) 40 mg QHS PO Last administered on 01/05/18at 20: 46; Start 01/03/18 at 21:00 Furosemide (Lasix) 40 mg DAILY IVP Last administered on 01/04/18at 09:21; Start 01/04/18 at 09:00; Stop 01/04/18 at 10:58; Status DC Nystatin (Nystop) 1 charu BID TP Last administered on 01/06/18at 09:00; Start at 21:00 Potassium Chloride/Water 50 ml @ 50 mls/hr 1X ONCE IV Last administered on at 09:20; Start 01/04/18 at 10:00; Stop 01/04/18 at 10:59; Status DC Furosemide (Lasix) 40 mg [id number] IVP Last administered on 01/06/18 09:25; Start 01/04/18 at 14:00 Carvedilol (Coreg) 25 mg BIDWMEALS PO Last administered on 01/06/18 09:26; Start 01/04/18 at 17:00 Atorvastatin Calcium (Lipitor) 40 mg QHS PO ; Start 01/04/18 at 21:00; Status Cancel Clopidogrel Bisulfate (Plavix) 75 mg DAILY PO Last administered on 01/06/18 09 :27; Start 01/04/18 at 12:00 Carvedilol (Coreg) 25 mg BIDWMEALS PO ; Start 01/04/18 at 17:00; Status Cancel Fluoxetine HCl (PROzac) 40 mg DAILY PO Last administered on 01/06/18 09:26; Start 01/04/18 at 12:00 Pantoprazole Sodium (Protonix) 40 mg DAILYAC PO Last administered on 01/06/18 05:29; Start 01/04/18 at 12:00 Potassium Chloride (Klor-Con) 20 meq [id number] PO Last administered on 09:27; Start 01/04/18 at 12:00 Non-Formulary Medication (Sacubitril/ Valsartan (Entresto 49 mg-51 mg Tablet)) 1 each BID PO ; Start 01/04/18 at 21:00; Stop 01/04/18 at 21:00; Status DC Insulin Human Lispro (HumaLOG) 0-9 UNITS TIDWMEALS SQ Last administered on 01/06at 09:45; Start 01/04/18 at 12:00 Dextrose (Dextrose 50%-Water Syringe) 12.5 gm PRN Q15MIN PRN IV SEE COMMENTS; Start 01/04/18 at 11:45 Diphenhydramine HCl (Benadryl) 25 mg PRN QHS PRN PO INSOMNIA; Start 01/04/18 at 15:00 Sacubitril/ Valsartan (Entresto 49 Mg-51 Mg) 1 tab BID PO Last administered on 01/06/18at 09:27; Start 01/05/18 at 09:00 Info (Do NOT chart on this placeholder) 1 each 1X ONCE MC ; Start 01/05/18 at 09:00; Stop 01/05/18 at 09:01; Status UNV Influenza Virus Vaccine (Afluria Trivalent [id number] Syringe) 0.5 ml ONCE ONCE VAX IM Last administered on 01/05/18at 09:33; Start 01/05/18 at 10:00; Stop at 10:01; Status DC Lactobacillus Rhamnosus (Culturelle) 1 cap BID PO Last administered on at 09:27; Start 01/05/18 at 09:30 Levofloxacin (Levaquin) 500 mg QHS PO ; Start 01/06/18 at 21:00 Active Scripts Active Reported Lantus (Insulin Glargine,Hum.rec.anlog) 100 Unit/1 Ml Vial 1 Unit SQ Novolog Flexpen (Insulin Aspart) 100 Unit/1 Ml Insuln.pen 1 Unit SQ Protonix (Pantoprazole Sodium) 40 Mg Granpkt.dr 40 Mg PO DAILY Bidil Tablet (Isosorb Dinit/Hydralazine Hcl) 1 Each Tablet 1 Each PO TID Carvedilol 25 Mg Tablet 25 Mg PO BIDWMEALS Amlodipine Besylate 5 Mg Tablet 5 Mg PO DAILY Entresto 49 mg-51 mg Tablet (Sacubitril/Valsartan) 1 Each Tablet 1 Each PO BID Fluoxetine Hcl 40 Mg Capsule 1 Cap PO DAILY NITROGLYCERIN SubLingual (Nitroglycerin) 0.4 Mg Tab.subl 0.4 Mg SL PRN Q5MIN PRN Clopidogrel (Clopidogrel Bisulfate) 75 Mg Tablet 1 Tab PO DAILY Potassium Chloride 20 Meq Tablet.er 20 Meq PO DAILY Furosemide 80 Mg Tablet 1 Tab PO BID Atorvastatin Calcium 40 Mg Tablet 1 Tab PO QHS Vitals/I & O Vital Sign - Last 24 Hours 01/05/18 01/05/18 01/05/18 01/05/18 15:00 15:22 19:00 19:30 Temp 98.5 98.4 98.5 98.4 Pulse 63 62 66 Resp 20 20 B/P (MAP) 189/71 (110) 127/78 139/80 (99) Pulse Ox 95 99 O2 Delivery Nasal Cannula Nasal Cannula Nasal Cannula O2 Flow Rate 5.0 5.0 5.0 01/05/18 01/05/18 01/06/18 01/06/18 20:46 23:17 03:18 07:00 Temp 98.2 98.5 98.3 98.2 98.5 98.3 Pulse 66 69 68 67 Resp 19 20 18 B/P (MAP) 139/80 129/61 (83) 137/70 (92) 119/59 (79) Pulse Ox 98 96 93 O2 Delivery Nasal Cannula Nasal Cannula Nasal Cannula O2 Flow Rate 5.0 5.0 5.0 01/06/18 01/06/18 01/06/18 09:26 09:27 10:30 Temp 98.0 98.0 Pulse 68 67 66 Resp 20 B/P (MAP) 119/59 119/59 139/85 (103) Pulse Ox 93 O2 Delivery Nasal Cannula O2 Flow Rate 5.0 Intake and Output 01/05/18 01/05/18 01/06/18 15:00 23:00 07:00 Intake Total 250 ml Output Total 285 ml 300 ml 1450 ml Balance -35 ml -300 ml -1450 ml DUNCAN DC MD Jan 06, 2018 14:06
[2018-01-06] MEDS ORDERED: ONDANSETRON PF 4 MG/2 ML VIAL. IV PRN (14:15)
[2018-01-06] MEDS ORDERED: ACETAMINOPHEN 325 MG TABLET. PO PRN (14:15)
[2018-01-06] MEDS ORDERED: MORPHINE SULFATE 2 MG/ML VIAL. IV PRN (14:15)
[2018-01-06 15:11] VITALS: BP 150/81
[2018-01-06 19:15] VITALS: BP 153/70
[2018-01-06] MEDS: ATORVASTATIN CALCIUM 40 MG TABLET. PO SCH (20:53)
[2018-01-06 23:04] VITALS: BP 157/70
[2018-01-07 03:05] VITALS: BP 145/76
[2018-01-07 04:57] LABS: BASO # 0.1 x10^3/uL (0.0-0.2); BASO % 1 % (0-3); EOS # 0.3 x10^3/uL (0.0-0.7); EOS % 3 % (0-3); HEMATOCRIT 29.7 % (36.0-47.0); HEMOGLOBIN 9.7 g/dL (12.0-15.5); LYMPH # 1.2 x10^3/uL (1.0-4.8); LYMPH % 13 % (24-48); MEAN CORPUSCULAR HEMOGLOBIN 29 pg (25-35); MEAN CORPUSCULAR HGB CONC 33 g/dL (31-37); MEAN CORPUSCULAR VOLUME 90 fL (79-100); MONO # 1.2 x10^3/uL (0.0-1.1); MONO % 13 % (0-9); NEUT # 6.7 x10^3uL (1.8-7.7); NEUT % 71 % (31-73); PLATELET COUNT 195 x10^3/uL (140-400); RED CELL DISTRIBUTION WIDTH 16.5 % (11.5-14.5); WHITE BLOOD COUNT 9.5 x10^3/uL (4.0-11.0)
[2018-01-07 05:22] LABS: CREATININE 1.9 mg/dL (0.6-1.0); POTASSIUM 4.1 mmol/L (3.5-5.1)
[2018-01-07 07:00] VITALS: BP 143/74
[2018-01-07] MEDS: PANTOPRAZOLE 40 MG TABLET.DR. PO SCH ×2 (07:22→08:34)
[2018-01-07] MEDS: CLOPIDOGREL BISULFATE 75 MG TABLET PO SCH (08:33)
[2018-01-07] MEDS: NYSTATIN TOPICAL POWDER 15GM BOTTLE. TP SCH ×2 (08:33→21:25)
[2018-01-07] MEDS: LACTOBACILLUS RHAMNOSUS GG 1 CAPSULE. PO SCH ×2 (08:33→21:25)
[2018-01-07] MEDS: FLUoxetine HCL 20 MG CAPSULE PO SCH (08:34)
[2018-01-07] MEDS: POTASSIUM CHLORIDE 20 MEQ TABLET.ER. PO SCH (08:34)
[2018-01-07] MEDS: SACUBITRIL/VALSARTAN 49/51MG TABLET. PO SCH ×2 (08:35→21:25)
[2018-01-07] MEDS: CARVEDILOL 12.5 MG TABLET. PO SCH ×2 (08:36→17:33)
[2018-01-07] MEDS: FUROSEMIDE 40 MG/4 ML VIAL. IVP SCH ×2 (08:36→14:36)
[2018-01-07] MEDS: INSULIN LISPRO 300 UNITS/3 ML INSULN.PEN. SQ SCH ×3 (08:49→17:37)
--- NOTE | 2018-01-07 09:17 | PDOC ---
PULMONARY PROGRESS NOTES Subjective extubated 01/03 doing well Vitals Vital Signs Date Time Temp Pulse Resp B/P (MAP) Pulse Ox O2 Delivery O2 Flow Rate FiO2 01/07/18 08:36 66 143/74 01/07/18 07:52 Nasal Cannula 4.0 01/07/18 07:24 98 01/07/18 07:00 98.3 20 98.3 General: Alert, No acute distress Lungs: Other (decrease bs) Cardiovascular: S1 Abdomen: Soft, Other (obese) Extremities: Other (1+edema) Labs Laboratory Tests Test 01/05/18 12:30 01/05/18 16:34 01/05/18 20:43 01/06/18 05:30 Glucose (Fingerstick) 163 mg/dL (70-99) 233 mg/dL (70-99) 153 mg/dL (70-99) White Blood Count 9.5 x10^3/uL (4.0-11.0) Red Blood Count 3.26 x10^6/uL (3.50-5.40) Hemoglobin 9.5 g/dL (12.0-15.5) Hematocrit 29.1 % (36.0-47.0) Mean Corpuscular Volume 90 fL (79-100) Mean Corpuscular Hemoglobin 29 pg (25-35) Mean Corpuscular Hemoglobin Concent 33 g/dL (31-37) Red Cell Distribution Width 17.1 % (11.5-14.5) Platelet Count 207 x10^3/uL (140-400) Neutrophils (%) (Auto) 73 % (31-73) Lymphocytes (%) (Auto) 11 % (24-48) Monocytes (%) (Auto) 12 % (0-9) Eosinophils (%) (Auto) 3 % (0-3) Basophils (%) (Auto) 1 % (0-3) Neutrophils # (Auto) 6.9 x10^3uL (1.8-7.7) Lymphocytes # (Auto) 1.0 x10^3/uL (1.0-4.8) Monocytes # (Auto) 1.1 x10^3/uL (0.0-1.1) Eosinophils # (Auto) 0.3 x10^3/uL (0.0-0.7) Basophils # (Auto) 0.1 x10^3/uL (0.0-0.2) Heparin Anti-Xa Act, Unfractionated 0.29 IU/mL (0.30-0.70) Sodium Level 140 mmol/L (136-145) Potassium Level 3.9 mmol/L (3.5-5.1) Chloride Level 104 mmol/L (98-107) Carbon Dioxide Level 30 mmol/L (21-32) Anion Gap 6 (6-14) Blood Urea Nitrogen 22 mg/dL (7-20) Creatinine 2.0 mg/dL (0.6-1.0) Estimated GFR (Cockcroft-Gault) 30.2 Glucose Level 150 mg/dL (70-99) Calcium Level 7.9 mg/dL (8.5-10.1) Test 01/06/18 06:57 01/06/18 11:12 01/06/18 17:07 01/07/18 04:40 Glucose (Fingerstick) 159 mg/dL (70-99) 158 mg/dL (70-99) 163 mg/dL (70-99) White Blood Count 9.5 x10^3/uL (4.0-11.0) Red Blood Count 3.30 x10^6/uL (3.50-5.40) Hemoglobin 9.7 g/dL (12.0-15.5) Hematocrit 29.7 % (36.0-47.0) Mean Corpuscular Volume 90 fL (79-100) Mean Corpuscular Hemoglobin 29 pg (25-35) Mean Corpuscular Hemoglobin Concent 33 g/dL (31-37) Red Cell Distribution Width 16.5 % (11.5-14.5) Platelet Count 195 x10^3/uL (140-400) Neutrophils (%) (Auto) 71 % (31-73) Lymphocytes (%) (Auto) 13 % (24-48) Monocytes (%) (Auto) 13 % (0-9) Eosinophils (%) (Auto) 3 % (0-3) Basophils (%) (Auto) 1 % (0-3) Neutrophils # (Auto) 6.7 x10^3uL (1.8-7.7) Lymphocytes # (Auto) 1.2 x10^3/uL (1.0-4.8) Monocytes # (Auto) 1.2 x10^3/uL (0.0-1.1) Eosinophils # (Auto) 0.3 x10^3/uL (0.0-0.7) Basophils # (Auto) 0.1 x10^3/uL (0.0-0.2) Sodium Level 141 mmol/L (136-145) Potassium Level 4.1 mmol/L (3.5-5.1) Chloride Level 105 mmol/L (98-107) Carbon Dioxide Level 32 mmol/L (21-32) Anion Gap 4 (6-14) Blood Urea Nitrogen 23 mg/dL (7-20) Creatinine 1.9 mg/dL (0.6-1.0) Estimated GFR (Cockcroft-Gault) 32.0 Glucose Level 158 mg/dL (70-99) Calcium Level 8.0 mg/dL (8.5-10.1) Test 01/07/18 07:09 Glucose (Fingerstick) 185 mg/dL (70-99) Laboratory Tests Test 01/06/18 11:12 01/06/18 17:07 01/07/18 04:40 01/07/18 07:09 Glucose (Fingerstick) 158 mg/dL (70-99) 163 mg/dL (70-99) 185 mg/dL (70-99) White Blood Count 9.5 x10^3/uL (4.0-11.0) Red Blood Count 3.30 x10^6/uL (3.50-5.40) Hemoglobin 9.7 g/dL (12.0-15.5) Hematocrit 29.7 % (36.0-47.0) Mean Corpuscular Volume 90 fL (79-100) Mean Corpuscular Hemoglobin 29 pg (25-35) Mean Corpuscular Hemoglobin Concent 33 g/dL (31-37) Red Cell Distribution Width 16.5 % (11.5-14.5) Platelet Count 195 x10^3/uL (140-400) Neutrophils (%) (Auto) 71 % (31-73) Lymphocytes (%) (Auto) 13 % (24-48) Monocytes (%) (Auto) 13 % (0-9) Eosinophils (%) (Auto) 3 % (0-3) Basophils (%) (Auto) 1 % (0-3) Neutrophils # (Auto) 6.7 x10^3uL (1.8-7.7) Lymphocytes # (Auto) 1.2 x10^3/uL (1.0-4.8) Monocytes # (Auto) 1.2 x10^3/uL (0.0-1.1) Eosinophils # (Auto) 0.3 x10^3/uL (0.0-0.7) Basophils # (Auto) 0.1 x10^3/uL (0.0-0.2) Sodium Level 141 mmol/L (136-145) Potassium Level 4.1 mmol/L (3.5-5.1) Chloride Level 105 mmol/L (98-107) Carbon Dioxide Level 32 mmol/L (21-32) Anion Gap 4 (6-14) Blood Urea Nitrogen 23 mg/dL (7-20) Creatinine 1.9 mg/dL (0.6-1.0) Estimated GFR (Cockcroft-Gault) 32.0 Glucose Level 158 mg/dL (70-99) Calcium Level 8.0 mg/dL (8.5-10.1) Medications Active Scripts Medications Dose Route/Sig Max Daily Dose Days Date Category Lantus (Insulin Glargine,Hum.rec.anlog) 100 Unit/1 Ml Vial 1 Unit SQ 01/02/18 Reported Novolog Flexpen (Insulin Aspart) 100 Unit/1 Ml Insuln.pen 1 Unit SQ 01/02/18 Reported Protonix (Pantoprazole Sodium) 40 Mg Granpkt.dr 40 Mg PO DAILY 01/02/18 Reported Bidil Tablet (Isosorb Dinit/Hydralazine Hcl) 1 Each Tablet 1 Each PO TID 01/02/18 Reported Carvedilol 25 Mg Tablet 25 Mg PO BIDWMEALS 01/02/18 Reported Amlodipine Besylate 5 Mg Tablet 5 Mg PO DAILY 01/02/18 Reported Entresto 49 mg-51 mg Tablet (Sacubitril/Valsartan) 1 Each Tablet 1 Each PO BID 01/02/18 Reported Fluoxetine Hcl 40 Mg Capsule 1 Cap PO DAILY 01/02/18 Reported NITROGLYCERIN SubLingual (Nitroglycerin) 0.4 Mg Tab.subl 0.4 Mg SL PRN Q5MIN PRN 01/02/18 Reported Clopidogrel (Clopidogrel Bisulfate) 75 Mg Tablet 1 Tab PO DAILY 01/02/18 Reported Potassium Chloride 20 Meq Tablet.er 20 Meq PO DAILY 01/02/18 Reported Furosemide 80 Mg Tablet 1 Tab PO BID 01/02/18 Reported Atorvastatin Calcium 40 Mg Tablet 1 Tab PO QHS 01/02/18 Reported Comments CXR unchanged infiltrates Impression . 1. [id number] hypoxic and hypercapnic respiratory failure secondary to non-ST segment myocardial infarction and acute congestive heart failure. Underlying chronic obstructive pulmonary disease may have contributed to the symptoms. extubated 01/03 2. possible pneumonia, 3. Abnormal chest x-ray with bilateral infiltrates, more on the right than on the left, likely related to pulmonary edema. She has a large cardiac silhouette as well. Cannot exclude underlying Pneumonia. 4. Suspected underlying chronic obstructive pulmonary disease. 5. Underlying obstructive sleep apnea with suspected obesity hypoventilation syndrome. 6. Acute kidney injury. 7. Moderate protein-calorie malnutrition, with an albumin level of 2.7. 8. Increasing troponin/ NSTMI 9. 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 1. Continue with present nasal canula 2. Diuresis. 3. empiric antibiotic. 4. Follow Cardiology recommendation regarding the need for cardiac catheterization.EF 30% 5. echocardiogram.reviewed 6. Follow chest x-rays NEEDED 7. Discussed with the patient's family, RN 10. oral nutrition 11 PT consulted rehab transfer Tuesday MARY MATSON MD Jan 07, 2018 09:17
--- NOTE | 2018-01-07 09:50 | RAD ---
EXAM: PORTABLE CHEST 1V AP View of the chest DATE: 01/07/2018 5:00 AM INDICATION: Congestive heart failure COMPARISON: 01/04/2018, 01/03/2018 FINDINGS: Moderate cardiomegaly. Right IJ vascular catheter tip projects over the proximal SVC. Mediastinal and hilar contours are normal. Diffuse parahilar parenchymal airspace opacities are seen. Moderate left and small right pleural effusion. No pneumothorax. IMPRESSION: Bilateral parenchymal opacities and cardiomegaly with pleural effusions is grossly stable consistent with alveolar pulmonary edema. Electronically signed by: Bismark Chappell MD (01/07/2018 9:46 AM) [facility]
[2018-01-07 11:00] VITALS: BP 151/80
--- NOTE | 2018-01-07 12:35 | PDOC ---
PROGRESS NOTES Chief Complaint Chief Complaint acute hypoxic resap failure with CHF ACUTE systolic CHF exacerbation EF 30% copd possible bl PNA ckd3 dm2 htn Severe morbid obesity NSTEMI generalized weakness plan: fu with card , pulm EXUTubated 01/03 passed swallow eval, resume some home meds cont lasix iv 40mg bid intake and output monitor, BP ok, monitor urine output off heparin drip cont levaquin, duoneb gi ppx ssi ptot, SW fu, rehab on Tuesday? fu with card to see if need cath History of Present Illness History of Present Illness ROS: no fever, chills, extubated 01/03, on NC 5L, home o2 4L very weak to walk, but refused to go rehab, said has home help. 01/07 pt changed her mind and wants rehab CXR slightly better, still bl infiltrates Vitals Vitals Vital Signs Date Time Temp Pulse Resp B/P (MAP) Pulse Ox O2 Delivery O2 Flow Rate FiO2 01/07/18 11:00 97.8 67 20 151/80 (103) 95 Nasal Cannula 4.0 97.8 Physical Exam Physical Exam General: Other (sedated) Heart: Regular rate, Normal S1, Normal S2, Other (heart tones distant and difficult to auscultate) Lungs: Other (decrease bs) Abdomen: Other (obese abdomen) Extremities: No edema Skin: No rashes Labs LABS Laboratory Tests Test 01/06/18 17:07 01/07/18 04:40 01/07/18 07:09 Glucose (Fingerstick) 163 mg/dL (70-99) 185 mg/dL (70-99) White Blood Count 9.5 x10^3/uL (4.0-11.0) Red Blood Count 3.30 x10^6/uL (3.50-5.40) Hemoglobin 9.7 g/dL (12.0-15.5) Hematocrit 29.7 % (36.0-47.0) Mean Corpuscular Volume 90 fL (79-100) Mean Corpuscular Hemoglobin 29 pg (25-35) Mean Corpuscular Hemoglobin Concent 33 g/dL (31-37) Red Cell Distribution Width 16.5 % (11.5-14.5) Platelet Count 195 x10^3/uL (140-400) Neutrophils (%) (Auto) 71 % (31-73) Lymphocytes (%) (Auto) 13 % (24-48) Monocytes (%) (Auto) 13 % (0-9) Eosinophils (%) (Auto) 3 % (0-3) Basophils (%) (Auto) 1 % (0-3) Neutrophils # (Auto) 6.7 x10^3uL (1.8-7.7) Lymphocytes # (Auto) 1.2 x10^3/uL (1.0-4.8) Monocytes # (Auto) 1.2 x10^3/uL (0.0-1.1) Eosinophils # (Auto) 0.3 x10^3/uL (0.0-0.7) Basophils # (Auto) 0.1 x10^3/uL (0.0-0.2) Sodium Level 141 mmol/L (136-145) Potassium Level 4.1 mmol/L (3.5-5.1) Chloride Level 105 mmol/L (98-107) Carbon Dioxide Level 32 mmol/L (21-32) Anion Gap 4 (6-14) Blood Urea Nitrogen 23 mg/dL (7-20) Creatinine 1.9 mg/dL (0.6-1.0) Estimated GFR (Cockcroft-Gault) 32.0 Glucose Level 158 mg/dL (70-99) Calcium Level 8.0 mg/dL (8.5-10.1) Assessment and Plan Assessmemt and Plan Problems Medical Problems: (1) Hyperglycemia Status: Acute (2) Hypoxia Status: Acute (3) Renal insufficiency Status: Acute (4) Respiratory failure Status: Acute (5) Septic shock Status: Acute (6) UTI (urinary tract infection) Status: Acute Comment Review of Relevant I have reviewed the following items linden (where applicable) has been applied. Labs Laboratory Tests Test 01/05/18 16:34 01/05/18 20:43 01/06/18 05:30 01/06/18 06:57 Glucose (Fingerstick) 233 mg/dL (70-99) 153 mg/dL (70-99) 159 mg/dL (70-99) White Blood Count 9.5 x10^3/uL (4.0-11.0) Red Blood Count 3.26 x10^6/uL (3.50-5.40) Hemoglobin 9.5 g/dL (12.0-15.5) Hematocrit 29.1 % (36.0-47.0) Mean Corpuscular Volume 90 fL (79-100) Mean Corpuscular Hemoglobin 29 pg (25-35) Mean Corpuscular Hemoglobin Concent 33 g/dL (31-37) Red Cell Distribution Width 17.1 % (11.5-14.5) Platelet Count 207 x10^3/uL (140-400) Neutrophils (%) (Auto) 73 % (31-73) Lymphocytes (%) (Auto) 11 % (24-48) Monocytes (%) (Auto) 12 % (0-9) Eosinophils (%) (Auto) 3 % (0-3) Basophils (%) (Auto) 1 % (0-3) Neutrophils # (Auto) 6.9 x10^3uL (1.8-7.7) Lymphocytes # (Auto) 1.0 x10^3/uL (1.0-4.8) Monocytes # (Auto) 1.1 x10^3/uL (0.0-1.1) Eosinophils # (Auto) 0.3 x10^3/uL (0.0-0.7) Basophils # (Auto) 0.1 x10^3/uL (0.0-0.2) Heparin Anti-Xa Act, Unfractionated 0.29 IU/mL (0.30-0.70) Sodium Level 140 mmol/L (136-145) Potassium Level 3.9 mmol/L (3.5-5.1) Chloride Level 104 mmol/L (98-107) Carbon Dioxide Level 30 mmol/L (21-32) Anion Gap 6 (6-14) Blood Urea Nitrogen 22 mg/dL (7-20) Creatinine 2.0 mg/dL (0.6-1.0) Estimated GFR (Cockcroft-Gault) 30.2 Glucose Level 150 mg/dL (70-99) Calcium Level 7.9 mg/dL (8.5-10.1) Test 01/06/18 11:12 01/06/18 17:07 01/07/18 04:40 01/07/18 07:09 Glucose (Fingerstick) 158 mg/dL (70-99) 163 mg/dL (70-99) 185 mg/dL (70-99) White Blood Count 9.5 x10^3/uL (4.0-11.0) Red Blood Count 3.30 x10^6/uL (3.50-5.40) Hemoglobin 9.7 g/dL (12.0-15.5) Hematocrit 29.7 % (36.0-47.0) Mean Corpuscular Volume 90 fL (79-100) Mean Corpuscular Hemoglobin 29 pg (25-35) Mean Corpuscular Hemoglobin Concent 33 g/dL (31-37) Red Cell Distribution Width 16.5 % (11.5-14.5) Platelet Count 195 x10^3/uL (140-400) Neutrophils (%) (Auto) 71 % (31-73) Lymphocytes (%) (Auto) 13 % (24-48) Monocytes (%) (Auto) 13 % (0-9) Eosinophils (%) (Auto) 3 % (0-3) Basophils (%) (Auto) 1 % (0-3) Neutrophils # (Auto) 6.7 x10^3uL (1.8-7.7) Lymphocytes # (Auto) 1.2 x10^3/uL (1.0-4.8) Monocytes # (Auto) 1.2 x10^3/uL (0.0-1.1) Eosinophils # (Auto) 0.3 x10^3/uL (0.0-0.7) Basophils # (Auto) 0.1 x10^3/uL (0.0-0.2) Sodium Level 141 mmol/L (136-145) Potassium Level 4.1 mmol/L (3.5-5.1) Chloride Level 105 mmol/L (98-107) Carbon Dioxide Level 32 mmol/L (21-32) Anion Gap 4 (6-14) Blood Urea Nitrogen 23 mg/dL (7-20) Creatinine 1.9 mg/dL (0.6-1.0) Estimated GFR (Cockcroft-Gault) 32.0 Glucose Level 158 mg/dL (70-99) Calcium Level 8.0 mg/dL (8.5-10.1) Laboratory Tests Test 01/06/18 17:07 01/07/18 04:40 01/07/18 07:09 Glucose (Fingerstick) 163 mg/dL (70-99) 185 mg/dL (70-99) White Blood Count 9.5 x10^3/uL (4.0-11.0) Red Blood Count 3.30 x10^6/uL (3.50-5.40) Hemoglobin 9.7 g/dL (12.0-15.5) Hematocrit 29.7 % (36.0-47.0) Mean Corpuscular Volume 90 fL (79-100) Mean Corpuscular Hemoglobin 29 pg (25-35) Mean Corpuscular Hemoglobin Concent 33 g/dL (31-37) Red Cell Distribution Width 16.5 % (11.5-14.5) Platelet Count 195 x10^3/uL (140-400) Neutrophils (%) (Auto) 71 % (31-73) Lymphocytes (%) (Auto) 13 % (24-48) Monocytes (%) (Auto) 13 % (0-9) Eosinophils (%) (Auto) 3 % (0-3) Basophils (%) (Auto) 1 % (0-3) Neutrophils # (Auto) 6.7 x10^3uL (1.8-7.7) Lymphocytes # (Auto) 1.2 x10^3/uL (1.0-4.8) Monocytes # (Auto) 1.2 x10^3/uL (0.0-1.1) Eosinophils # (Auto) 0.3 x10^3/uL (0.0-0.7) Basophils # (Auto) 0.1 x10^3/uL (0.0-0.2) Sodium Level 141 mmol/L (136-145) Potassium Level 4.1 mmol/L (3.5-5.1) Chloride Level 105 mmol/L (98-107) Carbon Dioxide Level 32 mmol/L (21-32) Anion Gap 4 (6-14) Blood Urea Nitrogen 23 mg/dL (7-20) Creatinine 1.9 mg/dL (0.6-1.0) Estimated GFR (Cockcroft-Gault) 32.0 Glucose Level 158 mg/dL (70-99) Calcium Level 8.0 mg/dL (8.5-10.1) Microbiology 01/02/18 Blood Culture - Final, Complete NO GROWTH AFTER 5 DAYS 01/01/18 Urine Culture - Final, Complete 01/01/18 Urine Culture Result 1 (EDU) - Final, Complete 01/01/18 Antimicrobic Susceptibility - Final, Complete Medications Current Medications Propofol 100 ml @ 0 mls/hr CONT PRN IV PER PROTOCOL Last administered on at 12:14; Start 01/01/18 at 23:00; Stop 01/03/18 at 15:38; Status DC Fentanyl Citrate (Fentanyl 2ml Vial) 25 mcg PRN Q1HR PRN IV MILD PAIN; Start at 23:00 Fentanyl Citrate (Fentanyl 2ml Vial) 50 mcg PRN Q1HR PRN IV MOD TO SEVERE PAIN Last administered on 01/01/18at 23:57; Start 01/01/18 at 23:00 Chlorhexidine Gluconate (Peridex) 15 ml BID MM Last administered on 01/03/18at 08:57; Start 01/02/18 at 09:00; Stop 01/03/18 at 17:45; Status DC Aztreonam 2 gm/ Dextrose 100 ml @ 200 mls/hr 1X ONCE IV Last administered on 01/02/18at 00:23; Start 01/01/18 at 23:30; Stop 01/01/18 at 23:59; Status DC Vancomycin HCl 2 gm/Sodium Chloride 500 ml @ 250 mls/hr 1X ONCE IV Last administered on 01/02/18at 01:13; Start 01/02/18 at 01:30; Stop 01/02/18 at 03:29 ; Status DC Levofloxacin/ Dextrose 100 ml @ 100 mls/hr 1X ONCE IV Last administered on at 23:56; Start 01/01/18 at 23:30; Stop 01/02/18 at 00:29; Status DC Propofol 50 ml @ As Directed STK-MED ONCE IV ; Start 01/01/18 at 23:16; Stop at 23:17; Status DC Lidocaine/ Epinephrine (LIDOCAINE 1%-EPI 1:100,000 Multi-Dose) 20 ml STK-MED ONCE .ROUTE ; Start 01/01/18 at 23:40; Stop 01/01/18 at 23:41; Status DC Propofol 50 ml @ As Directed STK-MED ONCE IV ; Start 01/01/18 at 23:50; Stop at 23:51; Status DC Sodium Chloride 1,000 ml @ 1,000 mls/hr 1X ONCE IV Last administered on at 00:00; Start 01/02/18 at 01:00; Stop 01/02/18 at 01:59; Status DC Sodium Chloride 1,000 ml @ 1,000 mls/hr 1X ONCE IV Last administered on at 01:12; Start 01/02/18 at 01:00; Stop 01/02/18 at 01:59; Status DC Ondansetron HCl (Zofran) 4 mg PRN Q8HRS PRN IV NAUSEA/VOMITING 1ST CHOICE; Start 01/02/18 at 01:30; Stop 01/03/18 at 01:29; Status DC Insulin Human Lispro (HumaLOG) 0-5 UNITS TIDWMEALS SQ ; Start 01/02/18 at 08:00 ; Stop 01/02/18 at 11:03; Status DC Dextrose (Dextrose 50%-Water Syringe) 12.5 gm PRN Q15MIN PRN IV SEE COMMENTS; Start 01/02/18 at 01:30; Status Cancel Heparin Sodium/ Dextrose 500 ml @ 0 mls/hr CONT PRN IV SEE I/O RECORD Last administered on 01/06/18at 05:37; Start 01/02/18 at 05:45; Stop 01/06/18 at 12:01 ; Status DC Heparin Sodium (Porcine) (Heparin Sodium) 5,100 unit PRN Q6HRS PRN IV FOR UFH LEVEL LESS THAN 0.2; Start 01/02/18 at 05:45; Stop 01/06/18 at 12:02; Status DC Info (Anti-Coagulation Monitoring By Pharmacy) 1 each PRN DAILY PRN MC SEE COMMENTS Last administered on 01/05/18at 09:02; Start 01/02/18 at 05:45; Stop at 12:02; Status DC Etomidate (Amidate) 20 mg 1X ONCE IV Last administered on 01/01/18at 22:31; Start 01/02/18 at 06:00; Stop 01/02/18 at 06:01; Status DC Rocuronium [place] (Zemuron) 50 mg 1X ONCE IV Last administered on 01/01/18at 22:31; Start 01/02/18 at 06:00; Stop 01/02/18 at 06:01; Status DC Enalaprilat (Vasotec Inj) 2.5 mg PRN Q6HRS PRN IVP HYPERTENSION, SEE COMMENTS Last administered on 01/03/18at 14:36; Start 01/02/18 at 09:00; Stop 01/05/18 at 08:07; Status DC Metoprolol Tartrate (Lopressor Vial) 5 mg PRN Q6HRS PRN IVP HYPERTENSION, SEE COMMENTS; Start 01/02/18 at 10:30; Stop 01/02/18 at 10:59; Status DC Famotidine (Pepcid Vial) 20 mg QHS IVP Last administered on 01/04/18at 00:14; Start 01/02/18 at 21:00; Stop 01/04/18 at 11:42; Status DC Furosemide (Lasix) 60 mg 1X ONCE IVP Last administered on 01/02/18at 11:18; Start 01/02/18 at 11:30; Stop 01/02/18 at 11:31; Status DC Levofloxacin/ Dextrose 100 ml @ 100 mls/hr Q24H IV Last administered on at 23:45; Start 01/02/18 at 23:00; Stop 01/06/18 at 13:37; Status DC Metoprolol Tartrate (Lopressor Vial) 5 mg Q6HRS IVP Last administered on at 06:02; Start 01/02/18 at 12:00; Stop 01/04/18 at 10:58; Status DC Insulin Human Lispro (HumaLOG) 0-5 UNITS Q4HRS SQ Last administered on at 12:42; Start 01/02/18 at 12:00; Stop 01/04/18 at 11:42; Status DC Furosemide (Lasix) 60 mg 1X ONCE IVP Last administered on 01/03/18at 08:57; Start 01/03/18 at 09:00; Stop 01/03/18 at 09:01; Status DC Furosemide (Lasix) 40 mg [id number] IVP ; Start 01/04/18 at 09:00; Stop 01/04/18 at 09:00; Status DC Atorvastatin Calcium (Lipitor) 40 mg QHS PO Last administered on 01/06/18at 20: 53; Start 01/03/18 at 21:00 Furosemide (Lasix) 40 mg DAILY IVP Last administered on 01/04/18at 09:21; Start 01/04/18 at 09:00; Stop 01/04/18 at 10:58; Status DC Nystatin (Nystop) 1 charu BID TP Last administered on 01/07/18 08:33; Start at 21:00 Potassium Chloride/Water 50 ml @ 50 mls/hr 1X ONCE IV Last administered on at 09:20; Start 01/04/18 at 10:00; Stop 01/04/18 at 10:59; Status DC Furosemide (Lasix) 40 mg [id number] IVP Last administered on 01/07/18 08:36; Start 01/04/18 at 14:00 Carvedilol (Coreg) 25 mg BIDWMEALS PO Last administered on 01/07/18 08:36; Start 01/04/18 at 17:00 Atorvastatin Calcium (Lipitor) 40 mg QHS PO ; Start 01/04/18 at 21:00; Status Cancel Clopidogrel Bisulfate (Plavix) 75 mg DAILY PO Last administered on 01/07/18 08 :33; Start 01/04/18 at 12:00 Carvedilol (Coreg) 25 mg BIDWMEALS PO ; Start 01/04/18 at 17:00; Status Cancel Fluoxetine HCl (PROzac) 40 mg DAILY PO Last administered on 01/07/18 08:34; Start 01/04/18 at 12:00 Pantoprazole Sodium (Protonix) 40 mg DAILYAC PO Last administered on 01/07/18 08:34; Start 01/04/18 at 12:00 Potassium Chloride (Klor-Con) 20 meq [id number] PO Last administered on 08:34; Start 01/04/18 at 12:00 Non-Formulary Medication (Sacubitril/ Valsartan (Entresto 49 mg-51 mg Tablet)) 1 each BID PO ; Start 01/04/18 at 21:00; Stop 01/04/18 at 21:00; Status DC Insulin Human Lispro (HumaLOG) 0-9 UNITS TIDWMEALS SQ Last administered on 01/07at 08:49; Start 01/04/18 at 12:00 Dextrose (Dextrose 50%-Water Syringe) 12.5 gm PRN Q15MIN PRN IV SEE COMMENTS; Start 01/04/18 at 11:45 Diphenhydramine HCl (Benadryl) 25 mg PRN QHS PRN PO INSOMNIA; Start 01/04/18 at 15:00 Sacubitril/ Valsartan (Entresto 49 Mg-51 Mg) 1 tab BID PO Last administered on 01/07/18at 08:35; Start 01/05/18 at 09:00 Info (Do NOT chart on this placeholder) 1 each 1X ONCE MC ; Start 01/05/18 at 09:00; Stop 01/05/18 at 09:01; Status UNV Influenza Virus Vaccine (Afluria Trivalent [id number] Syringe) 0.5 ml ONCE ONCE VAX IM Last administered on 01/05/18at 09:33; Start 01/05/18 at 10:00; Stop at 10:01; Status DC Lactobacillus Rhamnosus (Culturelle) 1 cap BID PO Last administered on at 08:33; Start 01/05/18 at 09:30 Levofloxacin (Levaquin) 500 mg QHS PO Last administered on 01/06/18at 20:53; Start 01/06/18 at 21:00 Acetaminophen (Tylenol) 650 mg PRN Q6HRS PRN PO FEVER; Start 01/06/18 at 14:15 Ondansetron HCl (Zofran) 4 mg PRN Q6HRS PRN IV NAUSEA/VOMITING; Start 01/06/18 at 14:15 Morphine Sulfate (Morphine Sulfate) 2 mg PRN Q2HR PRN IV MODERATE TO SEVERE PAIN; Start 01/06/18 at 14:15 Tramadol HCl (Ultram) 50 mg PRN Q6HRS PRN PO MILD TO MODERATE PAIN; Start 01/06 at 14:15 Docusate Sodium (Colace) 100 mg PRN DAILY PRN PO CONSTIPATION; Start 01/06/18 at 14:15 Active Scripts Active Reported Lantus (Insulin Glargine,Hum.rec.anlog) 100 Unit/1 Ml Vial 1 Unit SQ Novolog Flexpen (Insulin Aspart) 100 Unit/1 Ml Insuln.pen 1 Unit SQ Protonix (Pantoprazole Sodium) 40 Mg Granpkt.dr 40 Mg PO DAILY Bidil Tablet (Isosorb Dinit/Hydralazine Hcl) 1 Each Tablet 1 Each PO TID Carvedilol 25 Mg Tablet 25 Mg PO BIDWMEALS Amlodipine Besylate 5 Mg Tablet 5 Mg PO DAILY Entresto 49 mg-51 mg Tablet (Sacubitril/Valsartan) 1 Each Tablet 1 Each PO BID Fluoxetine Hcl 40 Mg Capsule 1 Cap PO DAILY NITROGLYCERIN SubLingual (Nitroglycerin) 0.4 Mg Tab.subl 0.4 Mg SL PRN Q5MIN PRN Clopidogrel (Clopidogrel Bisulfate) 75 Mg Tablet 1 Tab PO DAILY Potassium Chloride 20 Meq Tablet.er 20 Meq PO DAILY Furosemide 80 Mg Tablet 1 Tab PO BID Atorvastatin Calcium 40 Mg Tablet 1 Tab PO QHS Vitals/I & O Vital Sign - Last 24 Hours 01/06/18 01/06/18 01/06/18 01/06/18 15:11 17:09 19:10 19:15 Temp 98.4 98.4 98.4 98.4 Pulse 68 66 70 Resp 16 18 B/P (MAP) 150/81 (104) 153/70 (97) Pulse Ox 95 96 O2 Delivery Nasal Cannula Nasal Cannula Nasal Cannula O2 Flow Rate 4.0 4.0 4.0 01/06/18 01/06/18 01/07/18 01/07/18 20:54 23:04 03:05 07:00 Temp 98.0 98.4 98.3 98.0 98.4 98.3 Pulse 70 70 66 66 Resp 20 20 20 B/P (MAP) 153/70 157/70 (99) 145/76 (99) 143/74 (97) Pulse Ox 91 95 97 O2 Delivery Nasal Cannula Nasal Cannula Nasal Cannula O2 Flow Rate 4.0 4.0 4.0 01/07/18 01/07/18 01/07/18 01/07/18 07:24 07:52 08:35 08:36 Pulse 66 66 B/P (MAP) 143/74 143/74 Pulse Ox 98 O2 Delivery Nasal Cannula Nasal Cannula O2 Flow Rate 4.0 4.0 01/07/18 11:00 Temp 97.8 97.8 Pulse 67 Resp 20 B/P (MAP) 151/80 (103) Pulse Ox 95 O2 Delivery Nasal Cannula O2 Flow Rate 4.0 Intake and Output 01/06/18 01/06/18 01/07/18 15:00 23:00 07:00 Intake Total 940 ml 480 ml Output Total 1500 ml Balance 940 ml -1020 ml DUNCAN DC MD Jan 07, 2018 12:35
[2018-01-07 15:35] VITALS: BP 140/77
[2018-01-07] MEDS ORDERED: ALTEPLASE 2 MG VIAL INT CAT ONE (18:00)
[2018-01-07 19:00] VITALS: BP 146/87
[2018-01-07] MEDS: ATORVASTATIN CALCIUM 40 MG TABLET. PO SCH (21:25)
[2018-01-07 22:43] VITALS: BP 136/73
[2018-01-08 03:00] VITALS: BP 124/62
[2018-01-08 07:00] VITALS: BP 154/73
[2018-01-08] MEDS: FUROSEMIDE 40 MG/4 ML VIAL. IVP SCH ×2 (08:20→14:31)
[2018-01-08] MEDS: NYSTATIN TOPICAL POWDER 15GM BOTTLE. TP SCH ×2 (08:20→21:57)
[2018-01-08] MEDS: CLOPIDOGREL BISULFATE 75 MG TABLET PO SCH (08:21)
[2018-01-08] MEDS: CARVEDILOL 12.5 MG TABLET. PO SCH ×2 (08:21→17:28)
[2018-01-08] MEDS: POTASSIUM CHLORIDE 20 MEQ TABLET.ER. PO SCH (08:21)
[2018-01-08] MEDS: FLUoxetine HCL 20 MG CAPSULE PO SCH (08:22)
[2018-01-08] MEDS: SACUBITRIL/VALSARTAN 49/51MG TABLET. PO SCH ×2 (08:22→21:59)
[2018-01-08] MEDS: LACTOBACILLUS RHAMNOSUS GG 1 CAPSULE. PO SCH ×2 (08:22→21:59)
[2018-01-08] MEDS: INSULIN LISPRO 300 UNITS/3 ML INSULN.PEN. SQ SCH ×3 (08:33→17:31)
[2018-01-08 10:52] LABS: CALCIUM 9.2 mg/dL (8.5-10.1); CREATININE 2.1 mg/dL (0.6-1.0); GFR 28.5; POTASSIUM 4.3 mmol/L (3.5-5.1)
[2018-01-08 11:12] VITALS: BP 140/76
--- NOTE | 2018-01-08 11:51 | PDOC ---
PULMONARY PROGRESS NOTES Subjective extubated 01/03 doing well Vitals Vital Signs Date Time Temp Pulse Resp B/P (MAP) Pulse Ox O2 Delivery O2 Flow Rate FiO2 01/08/18 11:12 97.8 68 18 140/76 (97) 97 Nasal Cannula 4.0 97.8 General: Alert, No acute distress Lungs: Other (decrease bs) Cardiovascular: S1 Abdomen: Soft, Other (obese) Extremities: Other (1+edema) Labs Laboratory Tests Test 01/06/18 17:07 01/07/18 04:40 01/07/18 07:09 01/07/18 12:22 Glucose (Fingerstick) 163 mg/dL (70-99) 185 mg/dL (70-99) 198 mg/dL (70-99) White Blood Count 9.5 x10^3/uL (4.0-11.0) Red Blood Count 3.30 x10^6/uL (3.50-5.40) Hemoglobin 9.7 g/dL (12.0-15.5) Hematocrit 29.7 % (36.0-47.0) Mean Corpuscular Volume 90 fL (79-100) Mean Corpuscular Hemoglobin 29 pg (25-35) Mean Corpuscular Hemoglobin Concent 33 g/dL (31-37) Red Cell Distribution Width 16.5 % (11.5-14.5) Platelet Count 195 x10^3/uL (140-400) Neutrophils (%) (Auto) 71 % (31-73) Lymphocytes (%) (Auto) 13 % (24-48) Monocytes (%) (Auto) 13 % (0-9) Eosinophils (%) (Auto) 3 % (0-3) Basophils (%) (Auto) 1 % (0-3) Neutrophils # (Auto) 6.7 x10^3uL (1.8-7.7) Lymphocytes # (Auto) 1.2 x10^3/uL (1.0-4.8) Monocytes # (Auto) 1.2 x10^3/uL (0.0-1.1) Eosinophils # (Auto) 0.3 x10^3/uL (0.0-0.7) Basophils # (Auto) 0.1 x10^3/uL (0.0-0.2) Sodium Level 141 mmol/L (136-145) Potassium Level 4.1 mmol/L (3.5-5.1) Chloride Level 105 mmol/L (98-107) Carbon Dioxide Level 32 mmol/L (21-32) Anion Gap 4 (6-14) Blood Urea Nitrogen 23 mg/dL (7-20) Creatinine 1.9 mg/dL (0.6-1.0) Estimated GFR (Cockcroft-Gault) 32.0 Glucose Level 158 mg/dL (70-99) Calcium Level 8.0 mg/dL (8.5-10.1) Test 01/07/18 16:44 01/08/18 07:13 01/08/18 10:00 01/08/18 11:15 Glucose (Fingerstick) 206 mg/dL (70-99) 159 mg/dL (70-99) 175 mg/dL (70-99) Sodium Level 140 mmol/L (136-145) Potassium Level 4.3 mmol/L (3.5-5.1) Chloride Level 102 mmol/L (98-107) Carbon Dioxide Level 32 mmol/L (21-32) Anion Gap 6 (6-14) Blood Urea Nitrogen 26 mg/dL (7-20) Creatinine 2.1 mg/dL (0.6-1.0) Estimated GFR (Cockcroft-Gault) 28.5 Glucose Level 216 mg/dL (70-99) Calcium Level 9.2 mg/dL (8.5-10.1) Laboratory Tests Test 01/07/18 12:22 01/07/18 16:44 01/08/18 07:13 01/08/18 10:00 Glucose (Fingerstick) 198 mg/dL (70-99) 206 mg/dL (70-99) 159 mg/dL (70-99) Sodium Level 140 mmol/L (136-145) Potassium Level 4.3 mmol/L (3.5-5.1) Chloride Level 102 mmol/L (98-107) Carbon Dioxide Level 32 mmol/L (21-32) Anion Gap 6 (6-14) Blood Urea Nitrogen 26 mg/dL (7-20) Creatinine 2.1 mg/dL (0.6-1.0) Estimated GFR (Cockcroft-Gault) 28.5 Glucose Level 216 mg/dL (70-99) Calcium Level 9.2 mg/dL (8.5-10.1) Test 01/08/18 11:15 Glucose (Fingerstick) 175 mg/dL (70-99) Medications Active Scripts Medications Dose Route/Sig Max Daily Dose Days Date Category Lantus (Insulin Glargine,Hum.rec.anlog) 100 Unit/1 Ml Vial 1 Unit SQ 01/02/18 Reported Novolog Flexpen (Insulin Aspart) 100 Unit/1 Ml Insuln.pen 1 Unit SQ 01/02/18 Reported Protonix (Pantoprazole Sodium) 40 Mg Granpkt.dr 40 Mg PO DAILY 01/02/18 Reported Bidil Tablet (Isosorb Dinit/Hydralazine Hcl) 1 Each Tablet 1 Each PO TID 01/02/18 Reported Carvedilol 25 Mg Tablet 25 Mg PO BIDWMEALS 01/02/18 Reported Amlodipine Besylate 5 Mg Tablet 5 Mg PO DAILY 01/02/18 Reported Entresto 49 mg-51 mg Tablet (Sacubitril/Valsartan) 1 Each Tablet 1 Each PO BID 01/02/18 Reported Fluoxetine Hcl 40 Mg Capsule 1 Cap PO DAILY 01/02/18 Reported NITROGLYCERIN SubLingual (Nitroglycerin) 0.4 Mg Tab.subl 0.4 Mg SL PRN Q5MIN PRN 01/02/18 Reported Clopidogrel (Clopidogrel Bisulfate) 75 Mg Tablet 1 Tab PO DAILY 01/02/18 Reported Potassium Chloride 20 Meq Tablet.er 20 Meq PO DAILY 01/02/18 Reported Furosemide 80 Mg Tablet 1 Tab PO BID 01/02/18 Reported Atorvastatin Calcium 40 Mg Tablet 1 Tab PO QHS 01/02/18 Reported Comments CXR unchanged infiltrates Impression . 1. [id number] hypoxic and hypercapnic respiratory failure secondary to non-ST segment myocardial infarction and acute congestive heart failure. Underlying chronic obstructive pulmonary disease may have contributed to the symptoms. extubated 01/03 2. possible pneumonia, 3. Abnormal chest x-ray with bilateral infiltrates, more on the right than on the left, likely related to pulmonary edema. She has a large cardiac silhouette as well. Cannot exclude underlying Pneumonia. 4. Suspected underlying chronic obstructive pulmonary disease. 5. Underlying obstructive sleep apnea with suspected obesity hypoventilation syndrome. 6. Acute kidney injury. 7. Moderate protein-calorie malnutrition, with an albumin level of 2.7. 8. Increasing troponin/ NSTMI 9. 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 1. Continue with present nasal canula 2. Diuresis. 3. empiric antibiotic. 4. Follow Cardiology recommendation regarding the need for cardiac catheterization.EF 30% 5. echocardiogram.reviewed 6. Follow chest x-rays NEEDED 7. Discussed with the patient's family, rehabilitation therapist transfer Tuesday MARY MATSON MD Jan 08, 2018 11:51
--- NOTE | 2018-01-08 13:37 | PDOC ---
PROGRESS NOTES Chief Complaint Chief Complaint acute hypoxic resap failure with CHF ACUTE systolic CHF exacerbation EF 30% copd possible bl PNA ckd3 dm2 htn Severe morbid obesity NSTEMI generalized weakness plan: fu with card , pulm EXUTubated 01/03 passed swallow eval, resume some home meds cont lasix iv 40mg bid, bmp daily intake and output monitor, BP ok, monitor urine output off heparin drip cont levaquin, duoneb gi ppx ssi ptot, SW fu, rehab on Tuesday? fu with card to see if need cath? History of Present Illness History of Present Illness ROS: no fever, chills, extubated 01/03, on NC 5L, home o2 4L very weak to walk, but refused to go rehab, said has home help. 01/07 pt changed her mind and wants rehab CXR slightly better, still bl infiltrates when repeated Vitals Vitals Vital Signs Date Time Temp Pulse Resp B/P (MAP) Pulse Ox O2 Delivery O2 Flow Rate FiO2 01/08/18 11:12 97.8 68 18 140/76 (97) 97 Nasal Cannula 4.0 97.8 Physical Exam Physical Exam General: Other (sedated) Heart: Regular rate, Normal S1, Normal S2, Other (heart tones distant and difficult to auscultate) Lungs: Other (decrease bs) Abdomen: Other (obese abdomen) Extremities: No edema Skin: No rashes Labs LABS Laboratory Tests Test 01/07/18 16:44 01/08/18 07:13 01/08/18 10:00 01/08/18 11:15 Glucose (Fingerstick) 206 mg/dL (70-99) 159 mg/dL (70-99) 175 mg/dL (70-99) Sodium Level 140 mmol/L (136-145) Potassium Level 4.3 mmol/L (3.5-5.1) Chloride Level 102 mmol/L (98-107) Carbon Dioxide Level 32 mmol/L (21-32) Anion Gap 6 (6-14) Blood Urea Nitrogen 26 mg/dL (7-20) Creatinine 2.1 mg/dL (0.6-1.0) Estimated GFR (Cockcroft-Gault) 28.5 Glucose Level 216 mg/dL (70-99) Calcium Level 9.2 mg/dL (8.5-10.1) Assessment and Plan Assessmemt and Plan Problems Medical Problems: (1) Hyperglycemia Status: Acute (2) Hypoxia Status: Acute (3) Renal insufficiency Status: Acute (4) Respiratory failure Status: Acute (5) Septic shock Status: Acute (6) UTI (urinary tract infection) Status: Acute Comment Review of Relevant I have reviewed the following items linden (where applicable) has been applied. Labs Laboratory Tests Test 01/06/18 17:07 01/07/18 04:40 01/07/18 07:09 01/07/18 12:22 Glucose (Fingerstick) 163 mg/dL (70-99) 185 mg/dL (70-99) 198 mg/dL (70-99) White Blood Count 9.5 x10^3/uL (4.0-11.0) Red Blood Count 3.30 x10^6/uL (3.50-5.40) Hemoglobin 9.7 g/dL (12.0-15.5) Hematocrit 29.7 % (36.0-47.0) Mean Corpuscular Volume 90 fL (79-100) Mean Corpuscular Hemoglobin 29 pg (25-35) Mean Corpuscular Hemoglobin Concent 33 g/dL (31-37) Red Cell Distribution Width 16.5 % (11.5-14.5) Platelet Count 195 x10^3/uL (140-400) Neutrophils (%) (Auto) 71 % (31-73) Lymphocytes (%) (Auto) 13 % (24-48) Monocytes (%) (Auto) 13 % (0-9) Eosinophils (%) (Auto) 3 % (0-3) Basophils (%) (Auto) 1 % (0-3) Neutrophils # (Auto) 6.7 x10^3uL (1.8-7.7) Lymphocytes # (Auto) 1.2 x10^3/uL (1.0-4.8) Monocytes # (Auto) 1.2 x10^3/uL (0.0-1.1) Eosinophils # (Auto) 0.3 x10^3/uL (0.0-0.7) Basophils # (Auto) 0.1 x10^3/uL (0.0-0.2) Sodium Level 141 mmol/L (136-145) Potassium Level 4.1 mmol/L (3.5-5.1) Chloride Level 105 mmol/L (98-107) Carbon Dioxide Level 32 mmol/L (21-32) Anion Gap 4 (6-14) Blood Urea Nitrogen 23 mg/dL (7-20) Creatinine 1.9 mg/dL (0.6-1.0) Estimated GFR (Cockcroft-Gault) 32.0 Glucose Level 158 mg/dL (70-99) Calcium Level 8.0 mg/dL (8.5-10.1) Test 01/07/18 16:44 01/08/18 07:13 01/08/18 10:00 01/08/18 11:15 Glucose (Fingerstick) 206 mg/dL (70-99) 159 mg/dL (70-99) 175 mg/dL (70-99) Sodium Level 140 mmol/L (136-145) Potassium Level 4.3 mmol/L (3.5-5.1) Chloride Level 102 mmol/L (98-107) Carbon Dioxide Level 32 mmol/L (21-32) Anion Gap 6 (6-14) Blood Urea Nitrogen 26 mg/dL (7-20) Creatinine 2.1 mg/dL (0.6-1.0) Estimated GFR (Cockcroft-Gault) 28.5 Glucose Level 216 mg/dL (70-99) Calcium Level 9.2 mg/dL (8.5-10.1) Laboratory Tests Test 01/07/18 16:44 01/08/18 07:13 01/08/18 10:00 01/08/18 11:15 Glucose (Fingerstick) 206 mg/dL (70-99) 159 mg/dL (70-99) 175 mg/dL (70-99) Sodium Level 140 mmol/L (136-145) Potassium Level 4.3 mmol/L (3.5-5.1) Chloride Level 102 mmol/L (98-107) Carbon Dioxide Level 32 mmol/L (21-32) Anion Gap 6 (6-14) Blood Urea Nitrogen 26 mg/dL (7-20) Creatinine 2.1 mg/dL (0.6-1.0) Estimated GFR (Cockcroft-Gault) 28.5 Glucose Level 216 mg/dL (70-99) Calcium Level 9.2 mg/dL (8.5-10.1) Microbiology 01/02/18 Blood Culture - Final, Complete NO GROWTH AFTER 5 DAYS 01/01/18 Urine Culture - Final, Complete 01/01/18 Urine Culture Result 1 (EDU) - Final, Complete 01/01/18 Antimicrobic Susceptibility - Final, Complete Medications Current Medications Propofol 100 ml @ 0 mls/hr CONT PRN IV PER PROTOCOL Last administered on at 12:14; Start 01/01/18 at 23:00; Stop 01/03/18 at 15:38; Status DC Fentanyl Citrate (Fentanyl 2ml Vial) 25 mcg PRN Q1HR PRN IV MILD PAIN; Start at 23:00 Fentanyl Citrate (Fentanyl 2ml Vial) 50 mcg PRN Q1HR PRN IV MOD TO SEVERE PAIN Last administered on 01/01/18at 23:57; Start 01/01/18 at 23:00 Chlorhexidine Gluconate (Peridex) 15 ml BID MM Last administered on 01/03/18at 08:57; Start 01/02/18 at 09:00; Stop 01/03/18 at 17:45; Status DC Aztreonam 2 gm/ Dextrose 100 ml @ 200 mls/hr 1X ONCE IV Last administered on 01/02/18at 00:23; Start 01/01/18 at 23:30; Stop 01/01/18 at 23:59; Status DC Vancomycin HCl 2 gm/Sodium Chloride 500 ml @ 250 mls/hr 1X ONCE IV Last administered on 01/02/18at 01:13; Start 01/02/18 at 01:30; Stop 01/02/18 at 03:29 ; Status DC Levofloxacin/ Dextrose 100 ml @ 100 mls/hr 1X ONCE IV Last administered on at 23:56; Start 01/01/18 at 23:30; Stop 01/02/18 at 00:29; Status DC Propofol 50 ml @ As Directed STK-MED ONCE IV ; Start 01/01/18 at 23:16; Stop at 23:17; Status DC Lidocaine/ Epinephrine (LIDOCAINE 1%-EPI 1:100,000 Multi-Dose) 20 ml STK-MED ONCE .ROUTE ; Start 01/01/18 at 23:40; Stop 01/01/18 at 23:41; Status DC Propofol 50 ml @ As Directed STK-MED ONCE IV ; Start 01/01/18 at 23:50; Stop at 23:51; Status DC Sodium Chloride 1,000 ml @ 1,000 mls/hr 1X ONCE IV Last administered on at 00:00; Start 01/02/18 at 01:00; Stop 01/02/18 at 01:59; Status DC Sodium Chloride 1,000 ml @ 1,000 mls/hr 1X ONCE IV Last administered on at 01:12; Start 01/02/18 at 01:00; Stop 01/02/18 at 01:59; Status DC Ondansetron HCl (Zofran) 4 mg PRN Q8HRS PRN IV NAUSEA/VOMITING 1ST CHOICE; Start 01/02/18 at 01:30; Stop 01/03/18 at 01:29; Status DC Insulin Human Lispro (HumaLOG) 0-5 UNITS TIDWMEALS SQ ; Start 01/02/18 at 08:00 ; Stop 01/02/18 at 11:03; Status DC Dextrose (Dextrose 50%-Water Syringe) 12.5 gm PRN Q15MIN PRN IV SEE COMMENTS; Start 01/02/18 at 01:30; Status Cancel Heparin Sodium/ Dextrose 500 ml @ 0 mls/hr CONT PRN IV SEE I/O RECORD Last administered on 01/06/18at 05:37; Start 01/02/18 at 05:45; Stop 01/06/18 at 12:01 ; Status DC Heparin Sodium (Porcine) (Heparin Sodium) 5,100 unit PRN Q6HRS PRN IV FOR UFH LEVEL LESS THAN 0.2; Start 01/02/18 at 05:45; Stop 01/06/18 at 12:02; Status DC Info (Anti-Coagulation Monitoring By Pharmacy) 1 each PRN DAILY PRN MC SEE COMMENTS Last administered on 01/05/18at 09:02; Start 01/02/18 at 05:45; Stop at 12:02; Status DC Etomidate (Amidate) 20 mg 1X ONCE IV Last administered on 01/01/18at 22:31; Start 01/02/18 at 06:00; Stop 01/02/18 at 06:01; Status DC Rocuronium [place] (Zemuron) 50 mg 1X ONCE IV Last administered on 01/01/18at 22:31; Start 01/02/18 at 06:00; Stop 01/02/18 at 06:01; Status DC Enalaprilat (Vasotec Inj) 2.5 mg PRN Q6HRS PRN IVP HYPERTENSION, SEE COMMENTS Last administered on 01/03/18at 14:36; Start 01/02/18 at 09:00; Stop 01/05/18 at 08:07; Status DC Metoprolol Tartrate (Lopressor Vial) 5 mg PRN Q6HRS PRN IVP HYPERTENSION, SEE COMMENTS; Start 01/02/18 at 10:30; Stop 01/02/18 at 10:59; Status DC Famotidine (Pepcid Vial) 20 mg QHS IVP Last administered on 01/04/18at 00:14; Start 01/02/18 at 21:00; Stop 01/04/18 at 11:42; Status DC Furosemide (Lasix) 60 mg 1X ONCE IVP Last administered on 01/02/18at 11:18; Start 01/02/18 at 11:30; Stop 01/02/18 at 11:31; Status DC Levofloxacin/ Dextrose 100 ml @ 100 mls/hr Q24H IV Last administered on at 23:45; Start 01/02/18 at 23:00; Stop 01/06/18 at 13:37; Status DC Metoprolol Tartrate (Lopressor Vial) 5 mg Q6HRS IVP Last administered on at 06:02; Start 01/02/18 at 12:00; Stop 01/04/18 at 10:58; Status DC Insulin Human Lispro (HumaLOG) 0-5 UNITS Q4HRS SQ Last administered on at 12:42; Start 01/02/18 at 12:00; Stop 01/04/18 at 11:42; Status DC Furosemide (Lasix) 60 mg 1X ONCE IVP Last administered on 01/03/18at 08:57; Start 01/03/18 at 09:00; Stop 01/03/18 at 09:01; Status DC Furosemide (Lasix) 40 mg [id number] IVP ; Start 01/04/18 at 09:00; Stop 01/04/18 at 09:00; Status DC Atorvastatin Calcium (Lipitor) 40 mg QHS PO Last administered on 01/07/18at 21: 25; Start 01/03/18 at 21:00 Furosemide (Lasix) 40 mg DAILY IVP Last administered on 01/04/18at 09:21; Start 01/04/18 at 09:00; Stop 01/04/18 at 10:58; Status DC Nystatin (Nystop) 1 charu BID TP Last administered on 01/08/18 08:20; Start at 21:00 Potassium Chloride/Water 50 ml @ 50 mls/hr 1X ONCE IV Last administered on at 09:20; Start 01/04/18 at 10:00; Stop 01/04/18 at 10:59; Status DC Furosemide (Lasix) 40 mg [id number] IVP Last administered on 01/08/18 08:20; Start 01/04/18 at 14:00 Carvedilol (Coreg) 25 mg BIDWMEALS PO Last administered on 01/08/18 08:21; Start 01/04/18 at 17:00 Atorvastatin Calcium (Lipitor) 40 mg QHS PO ; Start 01/04/18 at 21:00; Status Cancel Clopidogrel Bisulfate (Plavix) 75 mg DAILY PO Last administered on 01/08/18 08 :21; Start 01/04/18 at 12:00 Carvedilol (Coreg) 25 mg BIDWMEALS PO ; Start 01/04/18 at 17:00; Status Cancel Fluoxetine HCl (PROzac) 40 mg DAILY PO Last administered on 01/08/18at 08:22; Start 01/04/18 at 12:00 Pantoprazole Sodium (Protonix) 40 mg DAILYAC PO Last administered on 01/07/18at 08:34; Start 01/04/18 at 12:00 Potassium Chloride (Klor-Con) 20 meq [id number] PO Last administered on at 08:21; Start 01/04/18 at 12:00 Non-Formulary Medication (Sacubitril/ Valsartan (Entresto 49 mg-51 mg Tablet)) 1 each BID PO ; Start 01/04/18 at 21:00; Stop 01/04/18 at 21:00; Status DC Insulin Human Lispro (HumaLOG) 0-9 UNITS TIDWMEALS SQ Last administered on 01/08at 12:54; Start 01/04/18 at 12:00 Dextrose (Dextrose 50%-Water Syringe) 12.5 gm PRN Q15MIN PRN IV SEE COMMENTS; Start 01/04/18 at 11:45 Diphenhydramine HCl (Benadryl) 25 mg PRN QHS PRN PO INSOMNIA; Start 01/04/18 at 15:00 Sacubitril/ Valsartan (Entresto 49 Mg-51 Mg) 1 tab BID PO Last administered on 01/08/18at 08:22; Start 01/05/18 at 09:00 Info (Do NOT chart on this placeholder) 1 each 1X ONCE MC ; Start 01/05/18 at 09:00; Stop 01/05/18 at 09:01; Status UNV Influenza Virus Vaccine (Afluria Trivalent [id number] Syringe) 0.5 ml ONCE ONCE VAX IM Last administered on 01/05/18at 09:33; Start 01/05/18 at 10:00; Stop at 10:01; Status DC Lactobacillus Rhamnosus (Culturelle) 1 cap BID PO Last administered on at 08:22; Start 01/05/18 at 09:30 Levofloxacin (Levaquin) 500 mg QHS PO Last administered on 01/07/18at 21:25; Start 01/06/18 at 21:00 Acetaminophen (Tylenol) 650 mg PRN Q6HRS PRN PO FEVER; Start 01/06/18 at 14:15 Ondansetron HCl (Zofran) 4 mg PRN Q6HRS PRN IV NAUSEA/VOMITING; Start 01/06/18 at 14:15 Morphine Sulfate (Morphine Sulfate) 2 mg PRN Q2HR PRN IV MODERATE TO SEVERE PAIN; Start 01/06/18 at 14:15 Tramadol HCl (Ultram) 50 mg PRN Q6HRS PRN PO MILD TO MODERATE PAIN; Start 01/06 at 14:15 Docusate Sodium (Colace) 100 mg PRN DAILY PRN PO CONSTIPATION; Start 01/06/18 at 14:15 Alteplase, Recombinant (Cathflo) 2 mg 1X ONCE INT CAT Last administered on at 18:04; Start 01/07/18 at 18:00; Stop 01/07/18 at 18:01; Status DC Active Scripts Active Reported Lantus (Insulin Glargine,Hum.rec.anlog) 100 Unit/1 Ml Vial 1 Unit SQ Novolog Flexpen (Insulin Aspart) 100 Unit/1 Ml Insuln.pen 1 Unit SQ Protonix (Pantoprazole Sodium) 40 Mg Granpkt.dr 40 Mg PO DAILY Bidil Tablet (Isosorb Dinit/Hydralazine Hcl) 1 Each Tablet 1 Each PO TID Carvedilol 25 Mg Tablet 25 Mg PO BIDWMEALS Amlodipine Besylate 5 Mg Tablet 5 Mg PO DAILY Entresto 49 mg-51 mg Tablet (Sacubitril/Valsartan) 1 Each Tablet 1 Each PO BID Fluoxetine Hcl 40 Mg Capsule 1 Cap PO DAILY NITROGLYCERIN SubLingual (Nitroglycerin) 0.4 Mg Tab.subl 0.4 Mg SL PRN Q5MIN PRN Clopidogrel (Clopidogrel Bisulfate) 75 Mg Tablet 1 Tab PO DAILY Potassium Chloride 20 Meq Tablet.er 20 Meq PO DAILY Furosemide 80 Mg Tablet 1 Tab PO BID Atorvastatin Calcium 40 Mg Tablet 1 Tab PO QHS Vitals/I & O Vital Sign - Last 24 Hours 01/07/18 01/07/18 01/07/18 01/07/18 15:35 17:33 19:00 19:15 Temp 97.4 98.3 97.4 98.3 Pulse 68 70 65 Resp 20 18 B/P (MAP) 140/77 (98) 140/77 146/87 (106) Pulse Ox 100 97 O2 Delivery Nasal Cannula Nasal Cannula Nasal Cannula O2 Flow Rate 4.0 4.0 4.0 01/07/18 01/07/18 01/08/18 01/08/18 21:25 22:43 03:00 07:00 Temp 98.3 97.9 97.8 98.3 97.9 97.8 Pulse 65 96 65 105 Resp 18 B/P (MAP) 146/87 136/73 (94) 124/62 (82) 154/73 (100) Pulse Ox 96 95 94 O2 Delivery Nasal Cannula Nasal Cannula Nasal Cannula O2 Flow Rate 4.0 4.0 4.0 01/08/18 01/08/18 01/08/18 01/08/18 07:51 08:21 08:21 08:22 Pulse 68 68 B/P (MAP) 154/73 154/73 O2 Delivery Nasal Cannula Nasal Cannula O2 Flow Rate 4.0 4.0 01/08/18 11:12 Temp 97.8 97.8 Pulse 68 Resp 18 B/P (MAP) 140/76 (97) Pulse Ox 97 O2 Delivery Nasal Cannula O2 Flow Rate 4.0 Intake and Output 01/07/18 01/07/18 01/08/18 15:00 23:00 07:00 Intake Total 300 ml 780 ml Balance 300 ml 780 ml DUNCAN DC MD Jan 08, 2018 13:37
[2018-01-08 15:00] VITALS: BP 165/81
[2018-01-08 19:00] VITALS: BP 148/79
[2018-01-08] MEDS: ATORVASTATIN CALCIUM 40 MG TABLET. PO SCH (21:58)
[2018-01-08 23:00] VITALS: BP 176/93
[2018-01-09 03:00] VITALS: BP 169/89
[2018-01-09 05:01] LABS: BASO # 0.1 x10^3/uL (0.0-0.2); BASO % 1 % (0-3); EOS # 0.4 x10^3/uL (0.0-0.7); EOS % 3 % (0-3); HEMATOCRIT 32.6 % (36.0-47.0); HEMOGLOBIN 10.9 g/dL (12.0-15.5); LYMPH # 1.6 x10^3/uL (1.0-4.8); LYMPH % 16 % (24-48); MEAN CORPUSCULAR HEMOGLOBIN 30 pg (25-35); MEAN CORPUSCULAR HGB CONC 34 g/dL (31-37); MEAN CORPUSCULAR VOLUME 89 fL (79-100); MONO # 1.3 x10^3/uL (0.0-1.1); MONO % 13 % (0-9); NEUT # 7.1 x10^3uL (1.8-7.7); NEUT % 68 % (31-73); PLATELET COUNT 257 x10^3/uL (140-400); RED BLOOD COUNT 3.65 x10^6/uL (3.50-5.40); WHITE BLOOD COUNT 10.5 x10^3/uL (4.0-11.0)
[2018-01-09 05:33] LABS: CALCIUM 9.4 mg/dL (8.5-10.1); CREATININE 1.9 mg/dL (0.6-1.0); POTASSIUM 4.1 mmol/L (3.5-5.1)
[2018-01-09 07:37] VITALS: BP 161/81
[2018-01-09] MEDS: CLOPIDOGREL BISULFATE 75 MG TABLET PO SCH (08:19)
[2018-01-09] MEDS: FUROSEMIDE 40 MG/4 ML VIAL. IVP SCH ×2 (08:19→13:52)
[2018-01-09] MEDS: SACUBITRIL/VALSARTAN 49/51MG TABLET. PO SCH ×2 (08:19→21:53)
[2018-01-09] MEDS: CARVEDILOL 12.5 MG TABLET. PO SCH ×2 (08:20→17:39)
[2018-01-09] MEDS: NYSTATIN TOPICAL POWDER 15GM BOTTLE. TP SCH ×2 (08:20→21:51)
[2018-01-09] MEDS: PANTOPRAZOLE 40 MG TABLET.DR. PO SCH (08:20)
[2018-01-09] MEDS: POTASSIUM CHLORIDE 20 MEQ TABLET.ER. PO SCH (08:20)
[2018-01-09] MEDS: FLUoxetine HCL 20 MG CAPSULE PO SCH (08:20)
[2018-01-09] MEDS: LACTOBACILLUS RHAMNOSUS GG 1 CAPSULE. PO SCH ×2 (08:20→21:53)
[2018-01-09] MEDS: INSULIN LISPRO 300 UNITS/3 ML INSULN.PEN. SQ SCH ×3 (08:30→17:44)
--- NOTE | 2018-01-09 09:17 | PDOC ---
PULMONARY PROGRESS NOTES Subjective PT NOT MORE SOA Vitals Vital Signs Date Time Temp Pulse Resp B/P (MAP) Pulse Ox O2 Delivery O2 Flow Rate FiO2 01/09/18 08:20 64 161/81 01/09/18 08:00 Nasal Cannula 4.0 01/09/18 07:37 97.8 20 97 97.8 General: Alert, No acute distress Lungs: Other (decrease bs) Cardiovascular: S1 Abdomen: Soft, Other (obese) Extremities: Other (1+edema) Labs Laboratory Tests Test 01/07/18 12:22 01/07/18 16:44 01/07/18 20:34 01/08/18 07:13 Glucose (Fingerstick) 198 mg/dL (70-99) 206 mg/dL (70-99) 135 mg/dL (70-99) 159 mg/dL (70-99) Test 01/08/18 10:00 01/08/18 11:15 01/08/18 16:35 01/08/18 20:35 Sodium Level 140 mmol/L (136-145) Potassium Level 4.3 mmol/L (3.5-5.1) Chloride Level 102 mmol/L (98-107) Carbon Dioxide Level 32 mmol/L (21-32) Anion Gap 6 (6-14) Blood Urea Nitrogen 26 mg/dL (7-20) Creatinine 2.1 mg/dL (0.6-1.0) Estimated GFR (Cockcroft-Gault) 28.5 Glucose Level 216 mg/dL (70-99) Calcium Level 9.2 mg/dL (8.5-10.1) Glucose (Fingerstick) 175 mg/dL (70-99) 167 mg/dL (70-99) 192 mg/dL (70-99) Test 01/09/18 04:00 01/09/18 07:52 White Blood Count 10.5 x10^3/uL (4.0-11.0) Red Blood Count 3.65 x10^6/uL (3.50-5.40) Hemoglobin 10.9 g/dL (12.0-15.5) Hematocrit 32.6 % (36.0-47.0) Mean Corpuscular Volume 89 fL (79-100) Mean Corpuscular Hemoglobin 30 pg (25-35) Mean Corpuscular Hemoglobin Concent 34 g/dL (31-37) Red Cell Distribution Width 17.0 % (11.5-14.5) Platelet Count 257 x10^3/uL (140-400) Neutrophils (%) (Auto) 68 % (31-73) Lymphocytes (%) (Auto) 16 % (24-48) Monocytes (%) (Auto) 13 % (0-9) Eosinophils (%) (Auto) 3 % (0-3) Basophils (%) (Auto) 1 % (0-3) Neutrophils # (Auto) 7.1 x10^3uL (1.8-7.7) Lymphocytes # (Auto) 1.6 x10^3/uL (1.0-4.8) Monocytes # (Auto) 1.3 x10^3/uL (0.0-1.1) Eosinophils # (Auto) 0.4 x10^3/uL (0.0-0.7) Basophils # (Auto) 0.1 x10^3/uL (0.0-0.2) Sodium Level 141 mmol/L (136-145) Potassium Level 4.1 mmol/L (3.5-5.1) Chloride Level 102 mmol/L (98-107) Carbon Dioxide Level 32 mmol/L (21-32) Anion Gap 7 (6-14) Blood Urea Nitrogen 26 mg/dL (7-20) Creatinine 1.9 mg/dL (0.6-1.0) Estimated GFR (Cockcroft-Gault) 32.0 Glucose Level 165 mg/dL (70-99) Calcium Level 9.4 mg/dL (8.5-10.1) Glucose (Fingerstick) 160 mg/dL (70-99) Laboratory Tests Test 01/08/18 10:00 01/08/18 11:15 01/08/18 16:35 01/08/18 20:35 Sodium Level 140 mmol/L (136-145) Potassium Level 4.3 mmol/L (3.5-5.1) Chloride Level 102 mmol/L (98-107) Carbon Dioxide Level 32 mmol/L (21-32) Anion Gap 6 (6-14) Blood Urea Nitrogen 26 mg/dL (7-20) Creatinine 2.1 mg/dL (0.6-1.0) Estimated GFR (Cockcroft-Gault) 28.5 Glucose Level 216 mg/dL (70-99) Calcium Level 9.2 mg/dL (8.5-10.1) Glucose (Fingerstick) 175 mg/dL (70-99) 167 mg/dL (70-99) 192 mg/dL (70-99) Test 01/09/18 04:00 01/09/18 07:52 White Blood Count 10.5 x10^3/uL (4.0-11.0) Red Blood Count 3.65 x10^6/uL (3.50-5.40) Hemoglobin 10.9 g/dL (12.0-15.5) Hematocrit 32.6 % (36.0-47.0) Mean Corpuscular Volume 89 fL (79-100) Mean Corpuscular Hemoglobin 30 pg (25-35) Mean Corpuscular Hemoglobin Concent 34 g/dL (31-37) Red Cell Distribution Width 17.0 % (11.5-14.5) Platelet Count 257 x10^3/uL (140-400) Neutrophils (%) (Auto) 68 % (31-73) Lymphocytes (%) (Auto) 16 % (24-48) Monocytes (%) (Auto) 13 % (0-9) Eosinophils (%) (Auto) 3 % (0-3) Basophils (%) (Auto) 1 % (0-3) Neutrophils # (Auto) 7.1 x10^3uL (1.8-7.7) Lymphocytes # (Auto) 1.6 x10^3/uL (1.0-4.8) Monocytes # (Auto) 1.3 x10^3/uL (0.0-1.1) Eosinophils # (Auto) 0.4 x10^3/uL (0.0-0.7) Basophils # (Auto) 0.1 x10^3/uL (0.0-0.2) Sodium Level 141 mmol/L (136-145) Potassium Level 4.1 mmol/L (3.5-5.1) Chloride Level 102 mmol/L (98-107) Carbon Dioxide Level 32 mmol/L (21-32) Anion Gap 7 (6-14) Blood Urea Nitrogen 26 mg/dL (7-20) Creatinine 1.9 mg/dL (0.6-1.0) Estimated GFR (Cockcroft-Gault) 32.0 Glucose Level 165 mg/dL (70-99) Calcium Level 9.4 mg/dL (8.5-10.1) Glucose (Fingerstick) 160 mg/dL (70-99) Medications Active Scripts Medications Dose Route/Sig Max Daily Dose Days Date Category Lantus (Insulin Glargine,Hum.rec.anlog) 100 Unit/1 Ml Vial 1 Unit SQ 01/02/18 Reported Novolog Flexpen (Insulin Aspart) 100 Unit/1 Ml Insuln.pen 1 Unit SQ 01/02/18 Reported Protonix (Pantoprazole Sodium) 40 Mg Granpkt.dr 40 Mg PO DAILY 01/02/18 Reported Bidil Tablet (Isosorb Dinit/Hydralazine Hcl) 1 Each Tablet 1 Each PO TID 01/02/18 Reported Carvedilol 25 Mg Tablet 25 Mg PO BIDWMEALS 01/02/18 Reported Amlodipine Besylate 5 Mg Tablet 5 Mg PO DAILY 01/02/18 Reported Entresto 49 mg-51 mg Tablet (Sacubitril/Valsartan) 1 Each Tablet 1 Each PO BID 01/02/18 Reported Fluoxetine Hcl 40 Mg Capsule 1 Cap PO DAILY 01/02/18 Reported NITROGLYCERIN SubLingual (Nitroglycerin) 0.4 Mg Tab.subl 0.4 Mg SL PRN Q5MIN PRN 01/02/18 Reported Clopidogrel (Clopidogrel Bisulfate) 75 Mg Tablet 1 Tab PO DAILY 01/02/18 Reported Potassium Chloride 20 Meq Tablet.er 20 Meq PO DAILY 01/02/18 Reported Furosemide 80 Mg Tablet 1 Tab PO BID 01/02/18 Reported Atorvastatin Calcium 40 Mg Tablet 1 Tab PO QHS 01/02/18 Reported Comments CXR unchanged infiltrates Impression . 1. [id number] hypoxic and hypercapnic respiratory failure secondary to non-ST segment myocardial infarction and acute congestive heart failure. Underlying chronic obstructive pulmonary disease may have contributed to the symptoms. extubated 01/03 2. possible pneumonia, 3. Abnormal chest x-ray with bilateral infiltrates, more on the right than on the left, likely related to pulmonary edema. She has a large cardiac silhouette as well. Cannot exclude underlying Pneumonia. 4. Suspected underlying chronic obstructive pulmonary disease. 5. Underlying obstructive sleep apnea with suspected obesity hypoventilation syndrome. 6. Acute kidney injury. 7. Moderate protein-calorie malnutrition, with an albumin level of 2.7. 8. Increasing troponin/ NSTMI 9. 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 PT RESP STATUS IS COMPENSATED TO BE TRANSFERRED CONTINUE DIURESE FOLLOW CARD INPUT D/W AT BEDSIDE POLI BENSON MD Jan 09, 2018 09:17
[2018-01-09 11:00] VITALS: BP 146/76
--- NOTE | 2018-01-09 11:36 | PDOC ---
PROGRESS NOTES Chief Complaint Chief Complaint acute hypoxic resap failure with CHF ACUTE systolic CHF exacerbation EF 30% copd possible bl PNA ckd3 dm2 htn Severe morbid obesity NSTEMI generalized weakness History of Present Illness History of Present Illness pt seen and examined Pt reports that she is improving, pleasant affect dw RN Vitals Vitals Vital Signs Date Time Temp Pulse Resp B/P (MAP) Pulse Ox O2 Delivery O2 Flow Rate FiO2 01/09/18 11:00 98.3 70 22 146/76 (99) 96 Nasal Cannula 4.0 98.3 Physical Exam Physical Exam General: Other (sedated) Heart: Regular rate, Normal S1, Normal S2, Other (heart tones distant and difficult to auscultate) Lungs: Other Abdomen: Other (obese abdomen) Extremities: No clubbing, No cyanosis, No edema Skin: No rashes Labs LABS Laboratory Tests Test 01/08/18 16:35 01/08/18 20:35 01/09/18 04:00 01/09/18 07:52 Glucose (Fingerstick) 167 mg/dL (70-99) 192 mg/dL (70-99) 160 mg/dL (70-99) White Blood Count 10.5 x10^3/uL (4.0-11.0) Red Blood Count 3.65 x10^6/uL (3.50-5.40) Hemoglobin 10.9 g/dL (12.0-15.5) Hematocrit 32.6 % (36.0-47.0) Mean Corpuscular Volume 89 fL (79-100) Mean Corpuscular Hemoglobin 30 pg (25-35) Mean Corpuscular Hemoglobin Concent 34 g/dL (31-37) Red Cell Distribution Width 17.0 % (11.5-14.5) Platelet Count 257 x10^3/uL (140-400) Neutrophils (%) (Auto) 68 % (31-73) Lymphocytes (%) (Auto) 16 % (24-48) Monocytes (%) (Auto) 13 % (0-9) Eosinophils (%) (Auto) 3 % (0-3) Basophils (%) (Auto) 1 % (0-3) Neutrophils # (Auto) 7.1 x10^3uL (1.8-7.7) Lymphocytes # (Auto) 1.6 x10^3/uL (1.0-4.8) Monocytes # (Auto) 1.3 x10^3/uL (0.0-1.1) Eosinophils # (Auto) 0.4 x10^3/uL (0.0-0.7) Basophils # (Auto) 0.1 x10^3/uL (0.0-0.2) Sodium Level 141 mmol/L (136-145) Potassium Level 4.1 mmol/L (3.5-5.1) Chloride Level 102 mmol/L (98-107) Carbon Dioxide Level 32 mmol/L (21-32) Anion Gap 7 (6-14) Blood Urea Nitrogen 26 mg/dL (7-20) Creatinine 1.9 mg/dL (0.6-1.0) Estimated GFR (Cockcroft-Gault) 32.0 Glucose Level 165 mg/dL (70-99) Calcium Level 9.4 mg/dL (8.5-10.1) Review of Systems Review of Systems CO fatigue CO weakness Assessment and Plan Assessmemt and Plan Problems Medical Problems: (1) Hyperglycemia Status: Acute (2) Hypoxia Status: Acute (3) Renal insufficiency Status: Acute (4) Respiratory failure Status: Acute (5) Septic shock Status: Acute (6) UTI (urinary tract infection) Status: Acute Plan: Cardiac Monitoring Oxygen Home meds PT/PT discharge to SNU when stable Comment Review of Relevant I have reviewed the following items linden (where applicable) has been applied. Labs Laboratory Tests Test 01/07/18 12:22 01/07/18 16:44 01/07/18 20:34 01/08/18 07:13 Glucose (Fingerstick) 198 mg/dL (70-99) 206 mg/dL (70-99) 135 mg/dL (70-99) 159 mg/dL (70-99) Test 01/08/18 10:00 01/08/18 11:15 01/08/18 16:35 01/08/18 20:35 Sodium Level 140 mmol/L (136-145) Potassium Level 4.3 mmol/L (3.5-5.1) Chloride Level 102 mmol/L (98-107) Carbon Dioxide Level 32 mmol/L (21-32) Anion Gap 6 (6-14) Blood Urea Nitrogen 26 mg/dL (7-20) Creatinine 2.1 mg/dL (0.6-1.0) Estimated GFR (Cockcroft-Gault) 28.5 Glucose Level 216 mg/dL (70-99) Calcium Level 9.2 mg/dL (8.5-10.1) Glucose (Fingerstick) 175 mg/dL (70-99) 167 mg/dL (70-99) 192 mg/dL (70-99) Test 01/09/18 04:00 01/09/18 07:52 White Blood Count 10.5 x10^3/uL (4.0-11.0) Red Blood Count 3.65 x10^6/uL (3.50-5.40) Hemoglobin 10.9 g/dL (12.0-15.5) Hematocrit 32.6 % (36.0-47.0) Mean Corpuscular Volume 89 fL (79-100) Mean Corpuscular Hemoglobin 30 pg (25-35) Mean Corpuscular Hemoglobin Concent 34 g/dL (31-37) Red Cell Distribution Width 17.0 % (11.5-14.5) Platelet Count 257 x10^3/uL (140-400) Neutrophils (%) (Auto) 68 % (31-73) Lymphocytes (%) (Auto) 16 % (24-48) Monocytes (%) (Auto) 13 % (0-9) Eosinophils (%) (Auto) 3 % (0-3) Basophils (%) (Auto) 1 % (0-3) Neutrophils # (Auto) 7.1 x10^3uL (1.8-7.7) Lymphocytes # (Auto) 1.6 x10^3/uL (1.0-4.8) Monocytes # (Auto) 1.3 x10^3/uL (0.0-1.1) Eosinophils # (Auto) 0.4 x10^3/uL (0.0-0.7) Basophils # (Auto) 0.1 x10^3/uL (0.0-0.2) Sodium Level 141 mmol/L (136-145) Potassium Level 4.1 mmol/L (3.5-5.1) Chloride Level 102 mmol/L (98-107) Carbon Dioxide Level 32 mmol/L (21-32) Anion Gap 7 (6-14) Blood Urea Nitrogen 26 mg/dL (7-20) Creatinine 1.9 mg/dL (0.6-1.0) Estimated GFR (Cockcroft-Gault) 32.0 Glucose Level 165 mg/dL (70-99) Calcium Level 9.4 mg/dL (8.5-10.1) Glucose (Fingerstick) 160 mg/dL (70-99) Laboratory Tests Test 01/08/18 16:35 01/08/18 20:35 01/09/18 04:00 01/09/18 07:52 Glucose (Fingerstick) 167 mg/dL (70-99) 192 mg/dL (70-99) 160 mg/dL (70-99) White Blood Count 10.5 x10^3/uL (4.0-11.0) Red Blood Count 3.65 x10^6/uL (3.50-5.40) Hemoglobin 10.9 g/dL (12.0-15.5) Hematocrit 32.6 % (36.0-47.0) Mean Corpuscular Volume 89 fL (79-100) Mean Corpuscular Hemoglobin 30 pg (25-35) Mean Corpuscular Hemoglobin Concent 34 g/dL (31-37) Red Cell Distribution Width 17.0 % (11.5-14.5) Platelet Count 257 x10^3/uL (140-400) Neutrophils (%) (Auto) 68 % (31-73) Lymphocytes (%) (Auto) 16 % (24-48) Monocytes (%) (Auto) 13 % (0-9) Eosinophils (%) (Auto) 3 % (0-3) Basophils (%) (Auto) 1 % (0-3) Neutrophils # (Auto) 7.1 x10^3uL (1.8-7.7) Lymphocytes # (Auto) 1.6 x10^3/uL (1.0-4.8) Monocytes # (Auto) 1.3 x10^3/uL (0.0-1.1) Eosinophils # (Auto) 0.4 x10^3/uL (0.0-0.7) Basophils # (Auto) 0.1 x10^3/uL (0.0-0.2) Sodium Level 141 mmol/L (136-145) Potassium Level 4.1 mmol/L (3.5-5.1) Chloride Level 102 mmol/L (98-107) Carbon Dioxide Level 32 mmol/L (21-32) Anion Gap 7 (6-14) Blood Urea Nitrogen 26 mg/dL (7-20) Creatinine 1.9 mg/dL (0.6-1.0) Estimated GFR (Cockcroft-Gault) 32.0 Glucose Level 165 mg/dL (70-99) Calcium Level 9.4 mg/dL (8.5-10.1) Microbiology 01/02/18 Blood Culture - Final, Complete NO GROWTH AFTER 5 DAYS 01/01/18 Urine Culture - Final, Complete 01/01/18 Urine Culture Result 1 (EDU) - Final, Complete 01/01/18 Antimicrobic Susceptibility - Final, Complete Medications Current Medications Propofol 100 ml @ 0 mls/hr CONT PRN IV PER PROTOCOL Last administered on at 12:14; Start 01/01/18 at 23:00; Stop 01/03/18 at 15:38; Status DC Fentanyl Citrate (Fentanyl 2ml Vial) 25 mcg PRN Q1HR PRN IV MILD PAIN; Start at 23:00 Fentanyl Citrate (Fentanyl 2ml Vial) 50 mcg PRN Q1HR PRN IV MOD TO SEVERE PAIN Last administered on 01/01/18at 23:57; Start 01/01/18 at 23:00 Chlorhexidine Gluconate (Peridex) 15 ml BID MM Last administered on 01/03/18at 08:57; Start 01/02/18 at 09:00; Stop 01/03/18 at 17:45; Status DC Aztreonam 2 gm/ Dextrose 100 ml @ 200 mls/hr 1X ONCE IV Last administered on 01/02/18at 00:23; Start 01/01/18 at 23:30; Stop 01/01/18 at 23:59; Status DC Vancomycin HCl 2 gm/Sodium Chloride 500 ml @ 250 mls/hr 1X ONCE IV Last administered on 01/02/18at 01:13; Start 01/02/18 at 01:30; Stop 01/02/18 at 03:29 ; Status DC Levofloxacin/ Dextrose 100 ml @ 100 mls/hr 1X ONCE IV Last administered on at 23:56; Start 01/01/18 at 23:30; Stop 01/02/18 at 00:29; Status DC Propofol 50 ml @ As Directed STK-MED ONCE IV ; Start 01/01/18 at 23:16; Stop at 23:17; Status DC Lidocaine/ Epinephrine (LIDOCAINE 1%-EPI 1:100,000 Multi-Dose) 20 ml STK-MED ONCE .ROUTE ; Start 01/01/18 at 23:40; Stop 01/01/18 at 23:41; Status DC Propofol 50 ml @ As Directed STK-MED ONCE IV ; Start 01/01/18 at 23:50; Stop at 23:51; Status DC Sodium Chloride 1,000 ml @ 1,000 mls/hr 1X ONCE IV Last administered on at 00:00; Start 01/02/18 at 01:00; Stop 01/02/18 at 01:59; Status DC Sodium Chloride 1,000 ml @ 1,000 mls/hr 1X ONCE IV Last administered on at 01:12; Start 01/02/18 at 01:00; Stop 01/02/18 at 01:59; Status DC Ondansetron HCl (Zofran) 4 mg PRN Q8HRS PRN IV NAUSEA/VOMITING 1ST CHOICE; Start 01/02/18 at 01:30; Stop 01/03/18 at 01:29; Status DC Insulin Human Lispro (HumaLOG) 0-5 UNITS TIDWMEALS SQ ; Start 01/02/18 at 08:00 ; Stop 01/02/18 at 11:03; Status DC Dextrose (Dextrose 50%-Water Syringe) 12.5 gm PRN Q15MIN PRN IV SEE COMMENTS; Start 01/02/18 at 01:30; Status Cancel Heparin Sodium/ Dextrose 500 ml @ 0 mls/hr CONT PRN IV SEE I/O RECORD Last administered on 01/06/18at 05:37; Start 01/02/18 at 05:45; Stop 01/06/18 at 12:01 ; Status DC Heparin Sodium (Porcine) (Heparin Sodium) 5,100 unit PRN Q6HRS PRN IV FOR UFH LEVEL LESS THAN 0.2; Start 01/02/18 at 05:45; Stop 01/06/18 at 12:02; Status DC Info (Anti-Coagulation Monitoring By Pharmacy) 1 each PRN DAILY PRN MC SEE COMMENTS Last administered on 01/05/18at 09:02; Start 01/02/18 at 05:45; Stop at 12:02; Status DC Etomidate (Amidate) 20 mg 1X ONCE IV Last administered on 01/01/18at 22:31; Start 01/02/18 at 06:00; Stop 01/02/18 at 06:01; Status DC Rocuronium [place] (Zemuron) 50 mg 1X ONCE IV Last administered on 01/01/18at 22:31; Start 01/02/18 at 06:00; Stop 01/02/18 at 06:01; Status DC Enalaprilat (Vasotec Inj) 2.5 mg PRN Q6HRS PRN IVP HYPERTENSION, SEE COMMENTS Last administered on 01/03/18at 14:36; Start 01/02/18 at 09:00; Stop 01/05/18 at 08:07; Status DC Metoprolol Tartrate (Lopressor Vial) 5 mg PRN Q6HRS PRN IVP HYPERTENSION, SEE COMMENTS; Start 01/02/18 at 10:30; Stop 01/02/18 at 10:59; Status DC Famotidine (Pepcid Vial) 20 mg QHS IVP Last administered on 01/04/18at 00:14; Start 01/02/18 at 21:00; Stop 01/04/18 at 11:42; Status DC Furosemide (Lasix) 60 mg 1X ONCE IVP Last administered on 01/02/18at 11:18; Start 01/02/18 at 11:30; Stop 01/02/18 at 11:31; Status DC Levofloxacin/ Dextrose 100 ml @ 100 mls/hr Q24H IV Last administered on at 23:45; Start 01/02/18 at 23:00; Stop 01/06/18 at 13:37; Status DC Metoprolol Tartrate (Lopressor Vial) 5 mg Q6HRS IVP Last administered on at 06:02; Start 01/02/18 at 12:00; Stop 01/04/18 at 10:58; Status DC Insulin Human Lispro (HumaLOG) 0-5 UNITS Q4HRS SQ Last administered on at 12:42; Start 01/02/18 at 12:00; Stop 01/04/18 at 11:42; Status DC Furosemide (Lasix) 60 mg 1X ONCE IVP Last administered on 01/03/18at 08:57; Start 01/03/18 at 09:00; Stop 01/03/18 at 09:01; Status DC Furosemide (Lasix) 40 mg [id number] IVP ; Start 01/04/18 at 09:00; Stop 01/04/18 at 09:00; Status DC Atorvastatin Calcium (Lipitor) 40 mg QHS PO Last administered on 01/08/18at 21: 58; Start 01/03/18 at 21:00 Furosemide (Lasix) 40 mg DAILY IVP Last administered on 01/04/18at 09:21; Start 01/04/18 at 09:00; Stop 01/04/18 at 10:58; Status DC Nystatin (Nystop) 1 charu BID TP Last administered on 01/09/18at 08:20; Start at 21:00 Potassium Chloride/Water 50 ml @ 50 mls/hr 1X ONCE IV Last administered on at 09:20; Start 01/04/18 at 10:00; Stop 01/04/18 at 10:59; Status DC Furosemide (Lasix) 40 mg [id number] IVP Last administered on 01/09/18 08:19; Start 01/04/18 at 14:00 Carvedilol (Coreg) 25 mg BIDWMEALS PO Last administered on 01/09/18at 08:20; Start 01/04/18 at 17:00 Atorvastatin Calcium (Lipitor) 40 mg QHS PO ; Start 01/04/18 at 21:00; Status Cancel Clopidogrel Bisulfate (Plavix) 75 mg DAILY PO Last administered on 01/09/18 08 :19; Start 01/04/18 at 12:00 Carvedilol (Coreg) 25 mg BIDWMEALS PO ; Start 01/04/18 at 17:00; Status Cancel Fluoxetine HCl (PROzac) 40 mg DAILY PO Last administered on 01/09/18at 08:20; Start 01/04/18 at 12:00 Pantoprazole Sodium (Protonix) 40 mg DAILYAC PO Last administered on 01/09/18at 08:20; Start 01/04/18 at 12:00 Potassium Chloride (Klor-Con) 20 meq [id number] PO Last administered on at 08:20; Start 01/04/18 at 12:00 Non-Formulary Medication (Sacubitril/ Valsartan (Entresto 49 mg-51 mg Tablet)) 1 each BID PO ; Start 01/04/18 at 21:00; Stop 01/04/18 at 21:00; Status DC Insulin Human Lispro (HumaLOG) 0-9 UNITS TIDWMEALS SQ Last administered on 01/09at 08:30; Start 01/04/18 at 12:00 Dextrose (Dextrose 50%-Water Syringe) 12.5 gm PRN Q15MIN PRN IV SEE COMMENTS; Start 01/04/18 at 11:45 Diphenhydramine HCl (Benadryl) 25 mg PRN QHS PRN PO INSOMNIA; Start 01/04/18 at 15:00 Sacubitril/ Valsartan (Entresto 49 Mg-51 Mg) 1 tab BID PO Last administered on 01/09/18at 08:19; Start 01/05/18 at 09:00 Info (Do NOT chart on this placeholder) 1 each 1X ONCE MC ; Start 01/05/18 at 09:00; Stop 01/05/18 at 09:01; Status UNV Influenza Virus Vaccine (Afluria Trivalent [id number] Syringe) 0.5 ml ONCE ONCE VAX IM Last administered on 01/05/18at 09:33; Start 01/05/18 at 10:00; Stop at 10:01; Status DC Lactobacillus Rhamnosus (Culturelle) 1 cap BID PO Last administered on at 08:20; Start 01/05/18 at 09:30 Levofloxacin (Levaquin) 500 mg QHS PO Last administered on 01/08/18at 22:00; Start 01/06/18 at 21:00 Acetaminophen (Tylenol) 650 mg PRN Q6HRS PRN PO FEVER; Start 01/06/18 at 14:15 Ondansetron HCl (Zofran) 4 mg PRN Q6HRS PRN IV NAUSEA/VOMITING; Start 01/06/18 at 14:15 Morphine Sulfate (Morphine Sulfate) 2 mg PRN Q2HR PRN IV MODERATE TO SEVERE PAIN; Start 01/06/18 at 14:15 Tramadol HCl (Ultram) 50 mg PRN Q6HRS PRN PO MILD TO MODERATE PAIN; Start 01/06 at 14:15 Docusate Sodium (Colace) 100 mg PRN DAILY PRN PO CONSTIPATION; Start 01/06/18 at 14:15 Alteplase, Recombinant (Cathflo) 2 mg 1X ONCE INT CAT Last administered on at 18:04; Start 01/07/18 at 18:00; Stop 01/07/18 at 18:01; Status DC Active Scripts Active Reported Lantus (Insulin Glargine,Hum.rec.anlog) 100 Unit/1 Ml Vial 1 Unit SQ Novolog Flexpen (Insulin Aspart) 100 Unit/1 Ml Insuln.pen 1 Unit SQ Protonix (Pantoprazole Sodium) 40 Mg Granpkt.dr 40 Mg PO DAILY Bidil Tablet (Isosorb Dinit/Hydralazine Hcl) 1 Each Tablet 1 Each PO TID Carvedilol 25 Mg Tablet 25 Mg PO BIDWMEALS Amlodipine Besylate 5 Mg Tablet 5 Mg PO DAILY Entresto 49 mg-51 mg Tablet (Sacubitril/Valsartan) 1 Each Tablet 1 Each PO BID Fluoxetine Hcl 40 Mg Capsule 1 Cap PO DAILY NITROGLYCERIN SubLingual (Nitroglycerin) 0.4 Mg Tab.subl 0.4 Mg SL PRN Q5MIN PRN Clopidogrel (Clopidogrel Bisulfate) 75 Mg Tablet 1 Tab PO DAILY Potassium Chloride 20 Meq Tablet.er 20 Meq PO DAILY Furosemide 80 Mg Tablet 1 Tab PO BID Atorvastatin Calcium 40 Mg Tablet 1 Tab PO QHS Vitals/I & O Vital Sign - Last 24 Hours 01/08/18 01/08/18 01/08/18 01/08/18 15:00 17:28 19:00 20:00 Temp 98.5 98.0 98.5 98.0 Pulse 66 68 75 Resp 17 22 B/P (MAP) 165/81 (109) 165/81 148/79 (102) Pulse Ox 97 96 O2 Delivery Nasal Cannula Nasal Cannula Nasal Cannula O2 Flow Rate 4.0 4.0 4.0 01/08/18 01/08/18 01/08/18 01/09/18 21:59 22:38 23:00 03:00 Temp 98.0 98.3 98.0 98.3 Pulse 67 63 64 Resp 20 18 B/P (MAP) 148/79 176/93 (120) 169/89 (115) Pulse Ox 92 94 O2 Delivery Nasal Cannula Nasal Cannula Nasal Cannula O2 Flow Rate 4.0 4.0 4.0 01/09/18 01/09/18 01/09/18 01/09/18 07:37 08:00 08:19 08:20 Temp 97.8 97.8 Pulse 64 64 64 Resp 20 B/P (MAP) 161/81 (107) 161/81 161/81 Pulse Ox 97 O2 Delivery Nasal Cannula Nasal Cannula O2 Flow Rate 4.0 4.0 01/09/18 11:00 Temp 98.3 98.3 Pulse 70 Resp 22 B/P (MAP) 146/76 (99) Pulse Ox 96 O2 Delivery Nasal Cannula O2 Flow Rate 4.0 Intake and Output 01/08/18 01/08/18 01/09/18 15:00 23:00 07:00 Intake Total 120 ml 560 ml Output Total 600 ml Balance -480 ml 560 ml MITALI PHILLIP III DO Jan 09, 2018 11:36
[2018-01-09] MEDS: traMADol 50 MG TABLET PO PRN ×2 (13:57→21:57)
[2018-01-09 15:11] VITALS: BP 150/74
[2018-01-09 19:11] VITALS: BP 148/78
[2018-01-09] MEDS: ATORVASTATIN CALCIUM 40 MG TABLET. PO SCH (21:52)
[2018-01-09] MEDS: DOCUSATE SODIUM 100 MG CAPSULE. PO PRN (21:53)
[2018-01-09 23:39] VITALS: BP 146/85
[2018-01-10 03:43] VITALS: BP 154/87
[2018-01-10 07:35] VITALS: BP 151/85
[2018-01-10] MEDS: FUROSEMIDE 40 MG/4 ML VIAL. IVP SCH ×2 (08:19→13:57)
[2018-01-10] MEDS: CLOPIDOGREL BISULFATE 75 MG TABLET PO SCH (08:19)
[2018-01-10] MEDS: LACTOBACILLUS RHAMNOSUS GG 1 CAPSULE. PO SCH ×2 (08:19→20:57)
[2018-01-10] MEDS: POTASSIUM CHLORIDE 20 MEQ TABLET.ER. PO SCH (08:20)
[2018-01-10] MEDS: FLUoxetine HCL 20 MG CAPSULE PO SCH (08:20)
[2018-01-10] MEDS: PANTOPRAZOLE 40 MG TABLET.DR. PO SCH (08:20)
[2018-01-10] MEDS: CARVEDILOL 12.5 MG TABLET. PO SCH ×2 (08:21→17:38)
[2018-01-10] MEDS: traMADol 50 MG TABLET PO PRN ×2 (08:22→21:17)
[2018-01-10] MEDS: INSULIN LISPRO 300 UNITS/3 ML INSULN.PEN. SQ SCH ×3 (08:33→17:40)
[2018-01-10] MEDS: SACUBITRIL/VALSARTAN 49/51MG TABLET. PO SCH ×2 (08:58→20:56)
[2018-01-10] MEDS: NYSTATIN TOPICAL POWDER 15GM BOTTLE. TP SCH ×2 (09:00→20:55)
--- NOTE | 2018-01-10 09:04 | PDOC ---
PULMONARY PROGRESS NOTES Subjective PT NOT MORE SOA Vitals Vital Signs Date Time Temp Pulse Resp B/P (MAP) Pulse Ox O2 Delivery O2 Flow Rate FiO2 01/10/18 08:58 64 151/85 01/10/18 08:22 Nasal Cannula 4.0 01/10/18 07:35 97.8 18 95 97.8 General: Alert, No acute distress Lungs: Other Cardiovascular: S1 Abdomen: Soft, Other (obese) Extremities: Other (1+edema) Labs Laboratory Tests Test 01/08/18 10:00 01/08/18 11:15 01/08/18 16:35 01/08/18 20:35 Sodium Level 140 mmol/L (136-145) Potassium Level 4.3 mmol/L (3.5-5.1) Chloride Level 102 mmol/L (98-107) Carbon Dioxide Level 32 mmol/L (21-32) Anion Gap 6 (6-14) Blood Urea Nitrogen 26 mg/dL (7-20) Creatinine 2.1 mg/dL (0.6-1.0) Estimated GFR (Cockcroft-Gault) 28.5 Glucose Level 216 mg/dL (70-99) Calcium Level 9.2 mg/dL (8.5-10.1) Glucose (Fingerstick) 175 mg/dL (70-99) 167 mg/dL (70-99) 192 mg/dL (70-99) Test 01/09/18 04:00 01/09/18 07:52 01/09/18 11:45 01/09/18 16:46 White Blood Count 10.5 x10^3/uL (4.0-11.0) Red Blood Count 3.65 x10^6/uL (3.50-5.40) Hemoglobin 10.9 g/dL (12.0-15.5) Hematocrit 32.6 % (36.0-47.0) Mean Corpuscular Volume 89 fL (79-100) Mean Corpuscular Hemoglobin 30 pg (25-35) Mean Corpuscular Hemoglobin Concent 34 g/dL (31-37) Red Cell Distribution Width 17.0 % (11.5-14.5) Platelet Count 257 x10^3/uL (140-400) Neutrophils (%) (Auto) 68 % (31-73) Lymphocytes (%) (Auto) 16 % (24-48) Monocytes (%) (Auto) 13 % (0-9) Eosinophils (%) (Auto) 3 % (0-3) Basophils (%) (Auto) 1 % (0-3) Neutrophils # (Auto) 7.1 x10^3uL (1.8-7.7) Lymphocytes # (Auto) 1.6 x10^3/uL (1.0-4.8) Monocytes # (Auto) 1.3 x10^3/uL (0.0-1.1) Eosinophils # (Auto) 0.4 x10^3/uL (0.0-0.7) Basophils # (Auto) 0.1 x10^3/uL (0.0-0.2) Sodium Level 141 mmol/L (136-145) Potassium Level 4.1 mmol/L (3.5-5.1) Chloride Level 102 mmol/L (98-107) Carbon Dioxide Level 32 mmol/L (21-32) Anion Gap 7 (6-14) Blood Urea Nitrogen 26 mg/dL (7-20) Creatinine 1.9 mg/dL (0.6-1.0) Estimated GFR (Cockcroft-Gault) 32.0 Glucose Level 165 mg/dL (70-99) Calcium Level 9.4 mg/dL (8.5-10.1) Glucose (Fingerstick) 160 mg/dL (70-99) 198 mg/dL (70-99) 176 mg/dL (70-99) Test 01/09/18 21:50 01/10/18 07:40 Glucose (Fingerstick) 166 mg/dL (70-99) 181 mg/dL (70-99) Laboratory Tests Test 01/09/18 11:45 01/09/18 16:46 01/09/18 21:50 01/10/18 07:40 Glucose (Fingerstick) 198 mg/dL (70-99) 176 mg/dL (70-99) 166 mg/dL (70-99) 181 mg/dL (70-99) Medications Active Scripts Medications Dose Route/Sig Max Daily Dose Days Date Category Lantus (Insulin Glargine,Hum.rec.anlog) 100 Unit/1 Ml Vial 1 Unit SQ 01/02/18 Reported Novolog Flexpen (Insulin Aspart) 100 Unit/1 Ml Insuln.pen 1 Unit SQ 01/02/18 Reported Protonix (Pantoprazole Sodium) 40 Mg Granpkt.dr 40 Mg PO DAILY 01/02/18 Reported Bidil Tablet (Isosorb Dinit/Hydralazine Hcl) 1 Each Tablet 1 Each PO TID 01/02/18 Reported Carvedilol 25 Mg Tablet 25 Mg PO BIDWMEALS 01/02/18 Reported Amlodipine Besylate 5 Mg Tablet 5 Mg PO DAILY 01/02/18 Reported Entresto 49 mg-51 mg Tablet (Sacubitril/Valsartan) 1 Each Tablet 1 Each PO BID 01/02/18 Reported Fluoxetine Hcl 40 Mg Capsule 1 Cap PO DAILY 01/02/18 Reported NITROGLYCERIN SubLingual (Nitroglycerin) 0.4 Mg Tab.subl 0.4 Mg SL PRN Q5MIN PRN 01/02/18 Reported Clopidogrel (Clopidogrel Bisulfate) 75 Mg Tablet 1 Tab PO DAILY 01/02/18 Reported Potassium Chloride 20 Meq Tablet.er 20 Meq PO DAILY 01/02/18 Reported Furosemide 80 Mg Tablet 1 Tab PO BID 01/02/18 Reported Atorvastatin Calcium 40 Mg Tablet 1 Tab PO QHS 01/02/18 Reported Comments CXR unchanged infiltrates Impression . 1. [id number] hypoxic and hypercapnic respiratory failure secondary to non-ST segment myocardial infarction and acute congestive heart failure. Underlying chronic obstructive pulmonary disease may have contributed to the symptoms. extubated 01/03 2. possible pneumonia, 3. Abnormal chest x-ray with bilateral infiltrates, more on the right than on the left, likely related to pulmonary edema. She has a large cardiac silhouette as well. Cannot exclude underlying Pneumonia. 4. Suspected underlying chronic obstructive pulmonary disease. 5. Underlying obstructive sleep apnea with suspected obesity hypoventilation syndrome. 6. Acute kidney injury. 7. Moderate protein-calorie malnutrition, with an albumin level of 2.7. 8. Increasing troponin/ NSTMI 9. 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 OK TO TRANSFER D/W AT BEDSIDE POLI BENSON MD Jan 10, 2018 09:04
[2018-01-10 11:00] VITALS: BP 149/81
[2018-01-10] MEDS ORDERED: LEVO250T7 PO (13:28)
--- NOTE | 2018-01-10 13:29 | PDOC3 ---
Discharge Summary IPC Final Diagnosis Problems Medical Problems: (1) Hyperglycemia Status: Acute (2) Hypoxia Status: Acute (3) Renal insufficiency Status: Acute (4) Respiratory failure Status: Acute (5) Septic shock Status: Acute (6) UTI (urinary tract infection) Status: Acute Brief Hospital Course Ms. French is a 67 old [sex] who presented with [ ] Scheduled Amlodipine Besylate (Amlodipine Besylate), 5 MG PO DAILY, (Reported) Atorvastatin Calcium (Atorvastatin Calcium), 1 TAB PO QHS, (Reported) Carvedilol (Carvedilol), 25 MG PO BIDWMEALS, (Reported) Clopidogrel Bisulfate (Clopidogrel), 1 TAB PO DAILY, (Reported) Fluoxetine Hcl (Fluoxetine Hcl), 1 CAP PO DAILY, (Reported) Furosemide (Furosemide), 1 TAB PO BID, (Reported) Isosorb Dinit/Hydralazine Hcl (Bidil Tablet), 1 EACH PO TID, (Reported) Levofloxacin (Levofloxacin), 500 MG PO QHS Pantoprazole Sodium (Protonix), 40 MG PO DAILY, (Reported) Potassium Chloride (Potassium Chloride), 20 MEQ PO DAILY, (Reported) Sacubitril/Valsartan (Entresto 49 mg-51 mg Tablet), 1 EACH PO BID, (Reported) Scheduled PRN Nitroglycerin (NITROGLYCERIN SubLingual), 0.4 MG SL PRN Q5MIN PRN for CHEST PAIN , (Reported) Miscellaneous Medications Insulin Aspart (Novolog Flexpen), 1 UNIT SQ, (Reported) Insulin Glargine,Hum.rec.anlog (Lantus), 1 UNIT SQ, (Reported) TIM SUN MD Jan 10, 2018 13:29
[2018-01-10] MEDS: DOCUSATE SODIUM 100 MG CAPSULE. PO PRN (13:56)
--- NOTE | 2018-01-10 17:39 | PDOC ---
PROGRESS NOTES Chief Complaint Chief Complaint acute hypoxic resap failure with CHF ACUTE systolic CHF exacerbation EF 30% copd possible bl PNA ckd3 dm2 htn Severe morbid obesity NSTEMI generalized weakness Plan - had a fall - needed large caity to lift - no significant pain - continue therapy - see orders 30 min in overall care of patient History of Present Illness History of Present Illness pt was about to go to snf but then the patient apparently had a fall and the insurance didnt have approval and eventually the patient was not able to be discharged Vitals Vitals Vital Signs Date Time Temp Pulse Resp B/P (MAP) Pulse Ox O2 Delivery O2 Flow Rate FiO2 01/10/18 11:00 97.9 65 18 149/81 (103) 99 Nasal Cannula 4.0 97.9 Physical Exam Physical Exam General: Other (sedated) Heart: Regular rate, Normal S1, Normal S2, Other (heart tones distant and difficult to auscultate) Lungs: Other Abdomen: Other (obese abdomen) Extremities: No clubbing, No cyanosis, No edema Skin: No rashes Labs LABS Laboratory Tests Test 01/09/18 21:50 01/10/18 07:40 01/10/18 11:52 01/10/18 16:57 Glucose (Fingerstick) 166 mg/dL (70-99) 181 mg/dL (70-99) 200 mg/dL (70-99) 178 mg/dL (70-99) Assessment and Plan Assessmemt and Plan Problems Medical Problems: (1) Hyperglycemia Status: Acute (2) Hypoxia Status: Acute (3) Renal insufficiency Status: Acute (4) Respiratory failure Status: Acute (5) Septic shock Status: Acute (6) UTI (urinary tract infection) Status: Acute Comment Review of Relevant I have reviewed the following items linden (where applicable) has been applied. Labs Laboratory Tests Test 01/08/18 20:35 01/09/18 04:00 01/09/18 07:52 01/09/18 11:45 Glucose (Fingerstick) 192 mg/dL (70-99) 160 mg/dL (70-99) 198 mg/dL (70-99) White Blood Count 10.5 x10^3/uL (4.0-11.0) Red Blood Count 3.65 x10^6/uL (3.50-5.40) Hemoglobin 10.9 g/dL (12.0-15.5) Hematocrit 32.6 % (36.0-47.0) Mean Corpuscular Volume 89 fL (79-100) Mean Corpuscular Hemoglobin 30 pg (25-35) Mean Corpuscular Hemoglobin Concent 34 g/dL (31-37) Red Cell Distribution Width 17.0 % (11.5-14.5) Platelet Count 257 x10^3/uL (140-400) Neutrophils (%) (Auto) 68 % (31-73) Lymphocytes (%) (Auto) 16 % (24-48) Monocytes (%) (Auto) 13 % (0-9) Eosinophils (%) (Auto) 3 % (0-3) Basophils (%) (Auto) 1 % (0-3) Neutrophils # (Auto) 7.1 x10^3uL (1.8-7.7) Lymphocytes # (Auto) 1.6 x10^3/uL (1.0-4.8) Monocytes # (Auto) 1.3 x10^3/uL (0.0-1.1) Eosinophils # (Auto) 0.4 x10^3/uL (0.0-0.7) Basophils # (Auto) 0.1 x10^3/uL (0.0-0.2) Sodium Level 141 mmol/L (136-145) Potassium Level 4.1 mmol/L (3.5-5.1) Chloride Level 102 mmol/L (98-107) Carbon Dioxide Level 32 mmol/L (21-32) Anion Gap 7 (6-14) Blood Urea Nitrogen 26 mg/dL (7-20) Creatinine 1.9 mg/dL (0.6-1.0) Estimated GFR (Cockcroft-Gault) 32.0 Glucose Level 165 mg/dL (70-99) Calcium Level 9.4 mg/dL (8.5-10.1) Test 01/09/18 16:46 01/09/18 21:50 01/10/18 07:40 01/10/18 11:52 Glucose (Fingerstick) 176 mg/dL (70-99) 166 mg/dL (70-99) 181 mg/dL (70-99) 200 mg/dL (70-99) Test 01/10/18 16:57 Glucose (Fingerstick) 178 mg/dL (70-99) Laboratory Tests Test 01/09/18 21:50 01/10/18 07:40 01/10/18 11:52 01/10/18 16:57 Glucose (Fingerstick) 166 mg/dL (70-99) 181 mg/dL (70-99) 200 mg/dL (70-99) 178 mg/dL (70-99) Microbiology 01/02/18 Blood Culture - Final, Complete NO GROWTH AFTER 5 DAYS 01/01/18 Urine Culture - Final, Complete 01/01/18 Urine Culture Result 1 (EDU) - Final, Complete 01/01/18 Antimicrobic Susceptibility - Final, Complete Medications Current Medications Propofol 100 ml @ 0 mls/hr CONT PRN IV PER PROTOCOL Last administered on at 12:14; Start 01/01/18 at 23:00; Stop 01/03/18 at 15:38; Status DC Fentanyl Citrate (Fentanyl 2ml Vial) 25 mcg PRN Q1HR PRN IV MILD PAIN; Start at 23:00 Fentanyl Citrate (Fentanyl 2ml Vial) 50 mcg PRN Q1HR PRN IV MOD TO SEVERE PAIN 2ND CHOICE Last administered on 01/01/18at 23:57; Start 01/01/18 at 23:00 Chlorhexidine Gluconate (Peridex) 15 ml BID MM Last administered on 01/03/18at 08:57; Start 01/02/18 at 09:00; Stop 01/03/18 at 17:45; Status DC Aztreonam 2 gm/ Dextrose 100 ml @ 200 mls/hr 1X ONCE IV Last administered on 01/02/18at 00:23; Start 01/01/18 at 23:30; Stop 01/01/18 at 23:59; Status DC Vancomycin HCl 2 gm/Sodium Chloride 500 ml @ 250 mls/hr 1X ONCE IV Last administered on 01/02/18at 01:13; Start 01/02/18 at 01:30; Stop 01/02/18 at 03:29 ; Status DC Levofloxacin/ Dextrose 100 ml @ 100 mls/hr 1X ONCE IV Last administered on at 23:56; Start 01/01/18 at 23:30; Stop 01/02/18 at 00:29; Status DC Propofol 50 ml @ As Directed STK-MED ONCE IV ; Start 01/01/18 at 23:16; Stop at 23:17; Status DC Lidocaine/ Epinephrine (LIDOCAINE 1%-EPI 1:100,000 Multi-Dose) 20 ml STK-MED ONCE .ROUTE ; Start 01/01/18 at 23:40; Stop 01/01/18 at 23:41; Status DC Propofol 50 ml @ As Directed STK-MED ONCE IV ; Start 01/01/18 at 23:50; Stop at 23:51; Status DC Sodium Chloride 1,000 ml @ 1,000 mls/hr 1X ONCE IV Last administered on at 00:00; Start 01/02/18 at 01:00; Stop 01/02/18 at 01:59; Status DC Sodium Chloride 1,000 ml @ 1,000 mls/hr 1X ONCE IV Last administered on at 01:12; Start 01/02/18 at 01:00; Stop 01/02/18 at 01:59; Status DC Ondansetron HCl (Zofran) 4 mg PRN Q8HRS PRN IV NAUSEA/VOMITING 1ST CHOICE; Start 01/02/18 at 01:30; Stop 01/03/18 at 01:29; Status DC Insulin Human Lispro (HumaLOG) 0-5 UNITS TIDWMEALS SQ ; Start 01/02/18 at 08:00 ; Stop 01/02/18 at 11:03; Status DC Dextrose (Dextrose 50%-Water Syringe) 12.5 gm PRN Q15MIN PRN IV SEE COMMENTS; Start 01/02/18 at 01:30; Status Cancel Heparin Sodium/ Dextrose 500 ml @ 0 mls/hr CONT PRN IV SEE I/O RECORD Last administered on 01/06/18at 05:37; Start 01/02/18 at 05:45; Stop 01/06/18 at 12:01 ; Status DC Heparin Sodium (Porcine) (Heparin Sodium) 5,100 unit PRN Q6HRS PRN IV FOR UFH LEVEL LESS THAN 0.2; Start 01/02/18 at 05:45; Stop 01/06/18 at 12:02; Status DC Info (Anti-Coagulation Monitoring By Pharmacy) 1 each PRN DAILY PRN MC SEE COMMENTS Last administered on 01/05/18at 09:02; Start 01/02/18 at 05:45; Stop at 12:02; Status DC Etomidate (Amidate) 20 mg 1X ONCE IV Last administered on 01/01/18at 22:31; Start 01/02/18 at 06:00; Stop 01/02/18 at 06:01; Status DC Rocuronium [place] (Zemuron) 50 mg 1X ONCE IV Last administered on 01/01/18at 22:31; Start 01/02/18 at 06:00; Stop 01/02/18 at 06:01; Status DC Enalaprilat (Vasotec Inj) 2.5 mg PRN Q6HRS PRN IVP HYPERTENSION, SEE COMMENTS Last administered on 01/03/18at 14:36; Start 01/02/18 at 09:00; Stop 01/05/18 at 08:07; Status DC Metoprolol Tartrate (Lopressor Vial) 5 mg PRN Q6HRS PRN IVP HYPERTENSION, SEE COMMENTS; Start 01/02/18 at 10:30; Stop 01/02/18 at 10:59; Status DC Famotidine (Pepcid Vial) 20 mg QHS IVP Last administered on 01/04/18at 00:14; Start 01/02/18 at 21:00; Stop 01/04/18 at 11:42; Status DC Furosemide (Lasix) 60 mg 1X ONCE IVP Last administered on 01/02/18at 11:18; Start 01/02/18 at 11:30; Stop 01/02/18 at 11:31; Status DC Levofloxacin/ Dextrose 100 ml @ 100 mls/hr Q24H IV Last administered on at 23:45; Start 01/02/18 at 23:00; Stop 01/06/18 at 13:37; Status DC Metoprolol Tartrate (Lopressor Vial) 5 mg Q6HRS IVP Last administered on at 06:02; Start 01/02/18 at 12:00; Stop 01/04/18 at 10:58; Status DC Insulin Human Lispro (HumaLOG) 0-5 UNITS Q4HRS SQ Last administered on at 12:42; Start 01/02/18 at 12:00; Stop 01/04/18 at 11:42; Status DC Furosemide (Lasix) 60 mg 1X ONCE IVP Last administered on 01/03/18 08:57; Start 01/03/18 at 09:00; Stop 01/03/18 at 09:01; Status DC Furosemide (Lasix) 40 mg BID92 IVP ; Start 01/04/18 at 09:00; Stop 01/04/18 at 09:00; Status DC Atorvastatin Calcium (Lipitor) 40 mg QHS PO Last administered on 01/09/18at 21: 52; Start 01/03/18 at 21:00 Furosemide (Lasix) 40 mg DAILY IVP Last administered on 01/04/18at 09:21; Start 01/04/18 at 09:00; Stop 01/04/18 at 10:58; Status DC Nystatin (Nystop) 1 charu BID TP Last administered on 01/10/18at 09:00; Start at 21:00 Potassium Chloride/Water 50 ml @ 50 mls/hr 1X ONCE IV Last administered on at 09:20; Start 01/04/18 at 10:00; Stop 01/04/18 at 10:59; Status DC Furosemide (Lasix) 40 mg BID92 IVP Last administered on 01/10/18at 13:57; Start 01/04/18 at 14:00 Carvedilol (Coreg) 25 mg BIDWMEALS PO Last administered on 01/10/18 08:21; Start 01/04/18 at 17:00 Atorvastatin Calcium (Lipitor) 40 mg QHS PO ; Start 01/04/18 at 21:00; Status Cancel Clopidogrel Bisulfate (Plavix) 75 mg DAILY PO Last administered on 01/10/18 08 :19; Start 01/04/18 at 12:00 Carvedilol (Coreg) 25 mg BIDWMEALS PO ; Start 01/04/18 at 17:00; Status Cancel Fluoxetine HCl (PROzac) 40 mg DAILY PO Last administered on 01/10/18 08:20; Start 01/04/18 at 12:00 Pantoprazole Sodium (Protonix) 40 mg DAILYAC PO Last administered on 01/10/18 08:20; Start 01/04/18 at 12:00 Potassium Chloride (Klor-Con) 20 meq DAILYWBKFT PO Last administered on 9/25/ 18at 08:20; Start 01/04/18 at 12:00 Non-Formulary Medication (Sacubitril/ Valsartan (Entresto 49 mg-51 mg Tablet)) 1 each BID PO ; Start 01/04/18 at 21:00; Stop 01/04/18 at 21:00; Status DC Insulin Human Lispro (HumaLOG) 0-9 UNITS TIDWMEALS SQ Last administered on 01/10at 12:13; Start 01/04/18 at 12:00 Dextrose (Dextrose 50%-Water Syringe) 12.5 gm PRN Q15MIN PRN IV SEE COMMENTS; Start 01/04/18 at 11:45 Diphenhydramine HCl (Benadryl) 25 mg PRN QHS PRN PO INSOMNIA; Start 01/04/18 at 15:00 Sacubitril/ Valsartan (Entresto 49 Mg-51 Mg) 1 tab BID PO Last administered on 01/10/18at 08:58; Start 01/05/18 at 09:00 Info (Do NOT chart on this placeholder) 1 each 1X ONCE MC ; Start 01/05/18 at 09:00; Stop 01/05/18 at 09:01; Status UNV Influenza Virus Vaccine (Afluria Trivalent [id number] Syringe) 0.5 ml ONCE ONCE VAX IM Last administered on 01/05/18at 09:33; Start 01/05/18 at 10:00; Stop at 10:01; Status DC Lactobacillus Rhamnosus (Culturelle) 1 cap BID PO Last administered on at 08:19; Start 01/05/18 at 09:30 Levofloxacin (Levaquin) 500 mg QHS PO Last administered on 01/09/18at 21:53; Start 01/06/18 at 21:00 Acetaminophen (Tylenol) 650 mg PRN Q6HRS PRN PO FEVER Last administered on 01/09at 17:39; Start 01/06/18 at 14:15 Ondansetron HCl (Zofran) 4 mg PRN Q6HRS PRN IV NAUSEA/VOMITING; Start 01/06/18 at 14:15 Morphine Sulfate (Morphine Sulfate) 2 mg PRN Q2HR PRN IV MOD TO SEVERE PAIN 1ST CHOICE; Start 01/06/18 at 14:15 Tramadol HCl (Ultram) 50 mg PRN Q6HRS PRN PO MILD TO MODERATE PAIN Last administered on 01/10/18at 08:22; Start 01/06/18 at 14:15 Docusate Sodium (Colace) 100 mg PRN DAILY PRN PO CONSTIPATION Last administered on 01/10/18at 13:56; Start 01/06/18 at 14:15 Alteplase, Recombinant (Cathflo) 2 mg 1X ONCE INT CAT Last administered on at 18:04; Start 01/07/18 at 18:00; Stop 01/07/18 at 18:01; Status DC Active Scripts Active Levofloxacin 250 Mg Tablet 500 Mg PO QHS 7 Days Reported Lantus (Insulin Glargine,Hum.rec.anlog) 100 Unit/1 Ml Vial 1 Unit SQ Novolog Flexpen (Insulin Aspart) 100 Unit/1 Ml Insuln.pen 1 Unit SQ Protonix (Pantoprazole Sodium) 40 Mg Granpkt.dr 40 Mg PO DAILY Carvedilol 25 Mg Tablet 25 Mg PO BIDWMEALS Entresto 49 mg-51 mg Tablet (Sacubitril/Valsartan) 1 Each Tablet 1 Each PO BID Fluoxetine Hcl 40 Mg Capsule 1 Cap PO DAILY NITROGLYCERIN SubLingual (Nitroglycerin) 0.4 Mg Tab.subl 0.4 Mg SL PRN Q5MIN PRN Clopidogrel (Clopidogrel Bisulfate) 75 Mg Tablet 1 Tab PO DAILY Potassium Chloride 20 Meq Tablet.er 20 Meq PO DAILY Furosemide 80 Mg Tablet 1 Tab PO BID Atorvastatin Calcium 40 Mg Tablet 1 Tab PO QHS Vitals/I & O Vital Sign - Last 24 Hours 01/09/18 01/09/18 01/09/18 01/09/18 17:39 19:11 20:00 21:53 Temp 98.0 98.0 Pulse 70 65 65 Resp 16 B/P (MAP) 150/74 148/78 (101) 148/78 Pulse Ox 95 O2 Delivery Nasal Cannula Nasal Cannula O2 Flow Rate 4.0 4.0 01/09/18 01/09/18 01/09/18 01/10/18 21:57 23:00 23:39 03:43 Temp 97.5 98.7 97.5 98.7 Pulse 64 68 Resp 20 22 18 B/P (MAP) 146/85 (105) 154/87 (109) Pulse Ox 95 95 95 95 O2 Delivery Nasal Cannula Nasal Cannula Nasal Cannula O2 Flow Rate 4.0 4.0 4.0 01/10/18 01/10/18 01/10/18 01/10/18 07:35 08:00 08:21 08:22 Temp 97.8 97.8 Pulse 64 64 Resp 18 B/P (MAP) 151/85 (107) 151/85 Pulse Ox 95 O2 Delivery Nasal Cannula Nasal Cannula Nasal Cannula O2 Flow Rate 4.0 4.0 4.0 01/10/18 01/10/18 01/10/18 01/10/18 08:58 09:19 09:27 11:00 Temp 97.9 97.9 Pulse 64 65 Resp 18 18 B/P (MAP) 151/85 149/81 (103) Pulse Ox 99 O2 Delivery Room Air Nasal Cannula Nasal Cannula O2 Flow Rate 4.0 4.0 Intake and Output 01/09/18 01/09/18 01/10/18 15:00 23:00 07:00 Intake Total 150 ml 500 ml 300 ml Output Total 400 ml Balance 150 ml 100 ml 300 ml TIM SUN MD Jan 10, 2018 17:39
[2018-01-10] MEDS: ATORVASTATIN CALCIUM 40 MG TABLET. PO SCH (20:56)
[2018-01-10 23:29] VITALS: BP 138/87
[2018-01-11 03:13] VITALS: BP 144/84
[2018-01-11] MEDS: PANTOPRAZOLE 40 MG TABLET.DR. PO SCH (05:06)
[2018-01-11 06:49] VITALS: BP 170/91
[2018-01-11] MEDS: FLUoxetine HCL 20 MG CAPSULE PO SCH (08:34)
[2018-01-11] MEDS: SACUBITRIL/VALSARTAN 49/51MG TABLET. PO SCH (08:34)
[2018-01-11] MEDS: LACTOBACILLUS RHAMNOSUS GG 1 CAPSULE. PO SCH (08:34)
[2018-01-11] MEDS: CARVEDILOL 12.5 MG TABLET. PO SCH (08:35)
[2018-01-11] MEDS: FUROSEMIDE 40 MG TABLET. PO SCH ×2 (08:35→15:26)
[2018-01-11] MEDS: POTASSIUM CHLORIDE 20 MEQ TABLET.ER. PO SCH (08:35)
[2018-01-11] MEDS: CLOPIDOGREL BISULFATE 75 MG TABLET PO SCH (08:35)
[2018-01-11] MEDS: NYSTATIN TOPICAL POWDER 15GM BOTTLE. TP SCH (08:36)
[2018-01-11] MEDS: INSULIN LISPRO 300 UNITS/3 ML INSULN.PEN. SQ SCH ×2 (08:39→12:47)
[2018-01-11 11:00] VITALS: BP 153/75
[2018-01-11 15:00] VITALS: BP 148/70
== END 2018-01-11 16:22 | DRG 871 ==
LOC: ER 22:22 → 1 WEST ICU 01-02 01:15 → 2 SOUTH 01-05 17:28
PROVIDERS: ADMIT Internal Medicine; ATTEND Internal Medicine
PROC: 5A1945Z Respiratory Ventilation, 24-96 Consecutive Hours (ICD-10-PCS; principal; 2018-01-01)
PROC: 0BH17EZ Insertion of Endotracheal Airway into Trachea, Via Natural or Artificial Opening (ICD-10-PCS; 2018-01-01)
PROC: 5A09357 Assistance with Respiratory Ventilation, Less than 24 Consecutive Hours, Continuous Positive Airway Pressure (ICD-10-PCS; 2018-01-01)
PROC: 02HV33Z Insertion of Infusion Device into Superior Vena Cava, Percutaneous Approach (ICD-10-PCS; 2018-01-02)
DX: A41.9 Sepsis, unspecified organism (principal); J96.22 Acute and chronic respiratory failure with hypercapnia; J18.9 Pneumonia, unspecified organism; E43 Unspecified severe protein-calorie malnutrition; I21.4 Non-ST elevation (NSTEMI) myocardial infarction; J96.21 Acute and chronic respiratory failure with hypoxia; I50.43 Acute on chronic combined systolic (congestive) and diastolic (congestive) heart failure; R65.21 Severe sepsis with septic shock; N17.9 Acute kidney failure, unspecified; N39.0 Urinary tract infection, site not specified; Z68.44 Body mass index [BMI] 60.0-69.9, adult; J44.0 Chronic obstructive pulmonary disease with (acute) lower respiratory infection; I13.0 Hypertensive heart and chronic kidney disease with heart failure and stage 1 through stage 4 chronic kidney disease, or unspecified chronic kidney disease; N18.4 Chronic kidney disease, stage 4 (severe); Z99.81 Dependence on supplemental oxygen; Z88.0 Allergy status to penicillin; Z88.1 Allergy status to other antibiotic agents; E11.22 Type 2 diabetes mellitus with diabetic chronic kidney disease; E11.65 Type 2 diabetes mellitus with hyperglycemia; E66.01 Morbid (severe) obesity due to excess calories; E78.5 Hyperlipidemia, unspecified; G47.33 Obstructive sleep apnea (adult) (pediatric); Z79.4 Long term (current) use of insulin; Z82.49 Family history of ischemic heart disease and other diseases of the circulatory system; Z87.891 Personal history of nicotine dependence
CPT/HCPCS: 31500; 36415; 36556; 36600; 51702; 71045; 80048; 80053; 80061; 81001; 82550; 82805; 82962; 83605; 83690; 83735; 83880; 84484; 85025; 85520; 85610; 85730; 87040; 87086; 87186; 87641; 90471; 90756; 93005; 93306; 94002; 94003; 94640; 94660; 94760; 96360; 96365; 96367; 96368; 96375; 99291; J1815; J1940; J1956; J2704; J2997; J3010; J3370; J3480; J3490; J7030; J7040; S0028; 92526; 92610; 97110; 97116; 97530; 97535; Q2035

== ENCOUNTER 2018-01-15 20:45 | Emergency (ER) | payer OTHER ==
[~2018-01-15] VITALS: Ht 170.2 cm; Wt 184.2 kg
[~2018-01-15 20:45] MED LIST: AMLO5TAB7 PO; ATOR40TA59 PO; CARV25TA2 PO; CLOP75TA PO; FLUO40CA2 PO; FURO80TA3 PO; INSU100I17 SQ; INSU100V8 SQ; ISOS1TAB2 PO; LEVO250T7 PO; NITR0.4T22 SL; PANT40GR PO; POTA20TA82 PO; SACU1TAB7 PO
[2018-01-15] MEDS ORDERED: HYDROcodone/APAP 5/325MG 1 TAB TABLET PO ONE (21:00)
[2018-01-15] MEDS ORDERED: ONDANSETRON ODT 4 MG TAB.RAPDIS. PO ONE (21:00)
--- NOTE | 2018-01-15 21:10 | PHYS DOC ---
Past Medical History Past Medical History: CHF, COPD, Diabetes-Type II, Hypertension Past Surgical History: Other Additional Past Surgical Histo: UNKNOWN Adult General Chief Complaint Chief Complaint: KNEE INJURY HPI HPI Patient is a 67 year old F BIBA WITH IKNEE PAIN. FELL AT FOUR AM YESTREDAY SLIPPED OFF THE EDGE OF THE BED. Apparently according to the paramedics A transfer to Hospital was requested by the nursing facility because they said "x-rays are taking too long" NO OTHER INJURY She has been doing well since her admission to the nursing facility no recent illnesses she denies any head injury neck pain chest pain or abdominal pain. Review of Systems Review of Systems Constitutional: Denies fever or chills [] Eyes: Denies change in visual acuity, redness, or eye pain [] HENT: Denies nasal congestion or sore throat [] Cardiovascular: No additional information not addressed in HPI [] GI: Denies abdominal pain, nausea, vomiting, bloody stools or diarrhea [] : Denies dysuria or hematuria [] Integument: Denies rash or skin lesions [] All other systems were reviewed and found to be within normal limits, except as documented in this note. Current Medications Current Medications Current Medications Medications (Trade) Dose Ordered Sig/Lulú Start Time Stop Time Status Last Admin Dose Admin Acetaminophen/ Hydrocodone Bitart (Lortab 5/325) 2 tab 1X ONCE 01/15/18 21:00 01/15/18 21:02 DC 01/15/18 21:21 2 TAB Ondansetron HCl (Zofran Odt) 4 mg 1X ONCE 01/15/18 21:00 01/15/18 21:02 DC 01/15/18 21:21 4 MG Allergies Allergies Allergies Coded Allergies Type Severity Reaction Last Updated Verified Penicillins Allergy Intermediate 01/01/18 Yes doxycycline Allergy Intermediate Unknown 01/04/18 Yes Physical Exam Physical Exam Constitutional: Well developed, well nourished, no acute distress, non-toxic appearance. [] HENT: Normocephalic, atraumatic, bilateral external ears normal, oropharynx moist, no oral exudates, nose normal. [] Eyes: PERRLA, EOMI, conjunctiva normal, no discharge. [] Neck: Normal range of motion, no tenderness, supple, no stridor. [] Cardiovascular:Heart rate regular rhythm, no murmur [] Lungs & Thorax: Bilateral breath sounds clear to auscultation [] Abdomen: Bowel sounds normal, soft, no tenderness, no masses, no pulsatile masses. [] OBESE. Skin: Warm, dry, no erythema, no rash. [] Extremities: TTP NOTED ANTERIOR RIGH5T KNEE OVER PATELLA. THERE IS NO SIGNIFICANTS WELLING NOTED. THERE IS NO TTP OVER THE TIBIAL PLATEAU AT ALL. PEDAL PULSE, DISTAL SENSATION AND PULSES INTACT. Neurologic: Alert and oriented X 3, normal motor function, normal sensory function, no focal deficits noted. [] Psychologic: Affect normal, judgement normal, mood normal. [] Current Patient Data Vital Signs Vital Signs Date Time Temp Pulse Resp B/P (MAP) Pulse Ox O2 Delivery O2 Flow Rate FiO2 01/15/18 20:45 97.7 71 22 133/70 (91) 96 Room Air 97.7 EKG EKG [] Radiology/Procedures Radiology/Procedures [] Impressions: xray negative acute. Course & Med Decision Making Course & Med Decision Making Pertinent Labs and Imaging studies reviewed. (See chart for details) Isolated knee injury patient is well-appearing the knee actually doesn't look Like clinically x-rays are negative distal sensation and pulses are intact patient was reassured Bryan wrap was applied discussed with who is in agreement with the plan transfer back to the longterm.[] Dragon Disclaimer Dragon Disclaimer This electronic medical record was generated, in whole or in part, using a voice recognition dictation system. Departure Departure Impression: Primary Impression: Knee pain Disposition: 01 HOME, SELF-CARE Condition: STABLE Referrals: ADRIAN SANDY DO (PCP) PALMER MCGRAW MD Jan 15, 2018 21:10
--- NOTE | 2018-01-15 21:51 | RAD ---
4 view right knee radiographs 01/15/2018 CLINICAL HISTORY: Right knee pain post fall. Portable AP, lateral, oblique, crosstable lateral and sunrise digital radiographs of the right knee were obtained. No fracture or dislocation of the right knee is seen. Moderate degenerative changes are seen involving all 3 compartments of the right knee. IMPRESSION: No fracture or dislocation of the right knee is seen. Electronically signed by: Yosef Lambert MD (01/15/2018 9:47 PM) [facility]
[2018-01-15 23:16] VITALS: BP 130/80
== END 2018-01-15 23:55 | disposition home or self-care (01) ==
LOC: ER 20:45
DX: M25.561 Pain in right knee (principal); G89.11 Acute pain due to trauma; J44.9 Chronic obstructive pulmonary disease, unspecified; E11.9 Type 2 diabetes mellitus without complications; I11.0 Hypertensive heart disease with heart failure; I50.9 Heart failure, unspecified; Z88.0 Allergy status to penicillin; Z88.1 Allergy status to other antibiotic agents; W06.XXXA Fall from bed, initial encounter; Y93.89 Activity, other specified; Y92.89 Other specified places as the place of occurrence of the external cause; Y99.8 Other external cause status
CPT/HCPCS: 73564; 99284; Q0162